=== PATIENT | female | born 1940 | race Caucasian/White ===

== ENCOUNTER 2018-09-12 10:28 | Observation (INO) | payer MEDICARE, OTHER, SELFPAY ==
[2018-09-12] VITALS (11 sets, daily range): BP systolic 133–153; BP diastolic 67–99; PULSE 65–94; RESP 15–18; TEMP 35.9–36.9; O2SAT 94–98; BMI 31.0; BMI 30.1
--- NOTE | 2018-09-12 10:37 | RAD_ITS ---
STUDY: X-RAY CHEST REASON FOR EXAM: Female, 78 years old. Chest pain with dizziness and weakness for 2 weeks. TECHNIQUE: Frontal and lateral views of the chest. COMPARISON: None. FINDINGS: Lungs hyperexpanded. There is no demonstrated pleural abnormality. Cardiomegaly. Normal mediastinum and maria m. Normal visualized pulmonary arteries. Aortic tortuosity with calcification. Thoracolumbar spondylosis. Normal visualized ribs, clavicles, and shoulders. There is no demonstrated abnormality of the visualized soft tissue structures of the upper abdomen. RAD/Chest PA and Lateral IMPRESSION: Cardiomegaly with hyperexpansion and no acute finding. Electronically Signed: Renzo Diehl MD at 11:14 EDT , Service support ,
[2018-09-12 10:45] LABS: Absolute Lymphocyte Count 1.76 X10^3/ul (0.83-4.51); Absolute Neutrophil Count 3.3 X10^3/uL (2.0-7.7); Basophil# 0.04 X10^3/uL; Basophil% 0.7 % (0-1); Eosinophil# 0.14 X10^3/uL; Eosinophils% 2.4 % (0-5); Hematocrit 43.5 % (37-47); Hemoglobin 14.1 g/dl (12.0-15.0); Lymphocyte # 1.76 X10^3/ul (4.0); Lymphocyte % 30.8 % (19-41); Mean Corp Hgb Conc 32.4 g/gl (32-36); Mean Corpuscular Hgb 29.6 pg (27.0-32.0); Mean Corpuscular Volume 91.4 fL (81-99); Mean Platelet Vol. 9.5 fl (6.2-12.0); Monocyte# 0.46 X10^3/uL; Neutrophil # 3.31 X10^3/uL (2.7-7.7); Neutrophil % 57.9 % (47-70); Platelet Count 312 K/mm3 (150-450); RBC Distribution Width CV 13.8 % (11.6-14.6); RBC Distribution Width SD 45.6 fl (35.1-43.9); Red Blood Count 4.76 M/mm3 (4.2-5.4); White Blood Count 5.7 K/mm3 (4.4-11.0)
[2018-09-12 10:48] LABS: POSITIVE COUNT NO; POSITIVE DIFFERENTIAL NO; POSITIVE MORPHOLOGY NO
[2018-09-12 11:04] LABS: Anion Gap 6 (5-15); BUN 14 mg/dL (7-18); BUN/Creat Ratio 21.4 RATIO (10-20); Calcium,Total 9.3 mg/dL (8.5-10.1); Chloride 106 mmol/L (98-107); Creatinine, Serum 0.66 mg/dL (0.55-1.02); EST Glomerular Filtration Rate 93 mL/min (>60); Est Glom Filt Rate - Afr Amer 113 mL/min (>60); Estimated Creatinine Clearance 34.38 ml/min; Glucose 96 mg/dL (74-106); Potassium 4.2 mmol/L (3.5-5.1); Sodium Level 140 mmol/L (136-145)
--- NOTE | 2018-09-12 12:20 | ED.DCSUM_ITS ---
- ER Visit Summary Date of Service: 09/12/18 Chief Complaint: Chest pain History of Present Illness: The patient is a 78 F high cholesterol kidney stones. No cardiac disease. No history of DVT or PE. She states that she does a lot of walking and the last several weeks to months she is had to stop walking hills because she gets very short of breath with walking hills to the point sometimes she has to stop and take a rest. She denies chest pain with exertion. Today she was at home when she had chest pressure in the midsternal of her chest rating her left shoulder and arm. Currently that is resolved. She also states she had some palpitations. Denies any history of DVT or PE. No hemoptysis. No pleuritic pain. No calf pain or swelling. She also describes recent dizziness that she is having that she describes as lightheadedness. It comes on at different times typically only last seconds. She denies any numbness or tingling in her upper or lower extremities. No weakness. No visual change. And no problem with her speech. Currently she is not having the symptoms. Physical Examination: Well-appearing older female vital signs are stable afebrile. No acute distress. Currently symptom-free pain-free. HEENT exam unremarkable. Neck nontender no JVD no lymphadenopathy. Lungs clear to auscultation bilaterally. Heart regular rate and rhythm no murmur. She has had frequent PVCs. Chest wall nontender. Abdomen soft, nontender, nondistended normal bowel sounds no peritoneal signs. Extremities moves all 4. Calves nontender without edema or cords. Equal symmetrical radial pulses. Neurologically awake alert with no focal motor or sensory deficits NIH is 0. Normal motor strength and sensation in both upper and lower extremities. Normal speech. No facial droop. Test Results: CBC normal. Chemistries normal. Troponin normal. Chest x-ray cardiomegaly otherwise no acute process. Read both by myself the radiologist. EKG sinus rhythm rate of 74 no acute signs of ischemia. Emergency Department Course and Treatment: Patient's chest pain is concerning for exertional dyspnea when she walks up hills. She and her are comfortable with her being admitted for further evaluation and work-up. Treatment Plan: I spoke to the hospitalist who is going to admit the patient and set her up for inpatient stress test. Disposition: Admission Impression: Exertional dyspnea and chest pain of uncertain etiology This note was generated with [employer] dictation software. It may contain incorrect words, spelling, and punctuation that were not noted in review of the chart prior to signing ED Disposition - Plan for ED Patient: Referrals: Duy Rosario MD [Primary Care Provider] -
--- NOTE | 2018-09-12 13:12 | ECHOD_ITS ---
Reason For Study: CP Procedure This was a 2D Doppler, Color Flow transthoracic echocardiogram. Exam performed portable in patient room. Left Ventricle Normal LV size. Left ventricular systolic function is normal. The estimated ejection fraction is 55 %. Stage 1 diastolic dysfunction. No regional wall motion abnormalities noted. Right Ventricle Normal RV size. Normal systolic function. Atria The left atrium is mildly enlarged. Normal right atrium. Mitral Valve Normal mitral valve. Mild (1+) eccentric mitral valve insufficiency. Tricuspid Valve Normal tricuspid valve. Mild (1+) tricuspid valve insufficiency. Pulmonary artery systolic pressure is 30 mmHg. Aortic Valve Normal aortic valve. Trisinus/trileaflet aortic valve. Pulmonic Valve Normal pulmonic valve. Great Vessels Normal aortic root. The pulmonary artery is normal size. Normal inferior vena cava. Pericardium/Pleural No pericardial effusion. MMode/2D Measurements & Calculations LVIDd: 4.6 cm IVSd: 0.94 cm LA dimension: 4.0 cm LVIDs: 3.1 cm LVPWd: 0.89 cm RVDd: 3.3 cm FS: 33.2 % LAV(MOD-bp): 56.7 ml LA A4 area: 22.6 cm2 RA A4 area: 12.4 cm2 LAV(MOD-bp) Indexed: 34.0 ml/m2 LAV(MOD-sp2): 46.3 ml LAV(MOD-sp4): 71.2 ml Time Measurements MV dec time: 0.19 sec Doppler Measurements & Calculations MV E max jaret: 78.9 cm/sec Lat Peak E' Jaret: 6.0 cm/sec Med Peak E' Jaret: 5.4 cm/sec MV A max jaret: 103.4 cm/sec E/E' lat: 13.1 E/E' med: 14.6 MV E/A: 0.76 MV V2 max: 109.4 cm/sec MV P1/2t max jaret: 77.1 cm/sec Ao V2 max: 102.2 cm/sec MV max P.8 mmHg MV P1/2t: 104.8 msec Ao max P.2 mmHg MV V2 mean: 57.3 cm/sec MV dec slope: 215.7 cm/sec2 MV mean P.5 mmHg MVA(P1/2t): 2.1 cm2 MV V2 VTI: 26.1 cm AI max jaret: 356.5 cm/sec LV V1 max: 89.7 cm/sec MR max jaret: 561.8 cm/sec AI max P.8 mmHg LV V1 max P.2 mmHg MR max P.2 mmHg MR mean jaret: 424.7 cm/sec AI dec slope: 175.9 cm/sec2 MR mean P.6 mmHg AI P1/2t: 593.5 msec MR VTI: 222.7 cm PA V2 max: 74.2 cm/sec TR max jaret: 250.6 cm/sec TR max P.1 mmHg Interpretation Summary Normal LV size. Left ventricular systolic function is normal. The estimated ejection fraction is 55 %. Stage 1 diastolic dysfunction. The left atrium is mildly enlarged. Mild (1+) eccentric mitral valve insufficiency. Pulmonary artery systolic pressure is 30 mmHg. Ordering Physician: Odalis Bazan Referring Physician: ISAIAH GALLEGO Performed By: Walt Marcelino RCS
--- NOTE | 2018-09-12 13:15 | EKG12_ITS ---
Test Reason : CP Blood Pressure : / mmHG Vent. Rate : 074 BPM Atrial Rate : 074 BPM P-R Int : 140 ms QRS Dur : 092 ms QT Int : 404 ms P-R-T Axes : 028 -21 016 degrees QTc Int : 448 ms Normal sinus rhythm Moderate voltage criteria for LVH, may be normal variant Borderline ECG Confirmed by NAEEM CALDERON, SMA ([id number]), film editor SPIKE FELIX ([id number]) on 09/13/2018 7:38:33 AM Referred By: CUONG Confirmed By:SAM HARTLEY MD
--- NOTE | 2018-09-12 13:19 | PCM.HP.STD ---
Problem List (1) Chest pain Status: Acute Qualifiers: Chest pain type: unspecified Qualified Code(s): R07.9 - Chest pain, unspecified (2) Hyperlipidemia Status: Chronic Qualifiers: Hyperlipidemia type: unspecified Qualified Code(s): E78.5 - Hyperlipidemia, unspecified History of Present Illness Date of Admission: 09/12/18 Chief Complaint: Chest pain - 3 days The patient is a 78 year old F with PMHx of Hyperlipidemia who comes in with complaints of chest pain ongoing for the past 3 days. Patient complains of left-sided dull/heavy chest pain that happens randomly over the course of the last 3 days. Chest pain comes on even at rest lasts for a few seconds and goes away. It is not associated with diaphoresis or nausea or vomiting. She has dyspnea on exertion as well as intermittent dizziness. Denies any cardiac history. She also denies orthopnea or PND or leg swelling. Vitals in the ED show temperature of 96.7F, heart rate 69, blood pressure 153/99, respiratory rate 15, SPO2 is 96% on room air. Admitting blood work showed RBC count of 5.7, hemoglobin 14.1, platelet count of 312. BMP was unremarkable, troponins x1 was negative. EKG showed no acute ST-T changes. Past Medical History Past Medical History (Chronic Problems): Chronic Problems Hyperlipidemia (Chronic) Allergies butorphanol [From Stadol] Allergy (Verified 09/12/18 10:29) Vomiting meperidine [From Demerol] Allergy (Verified 09/12/18 10:29) Vomiting Sulfa (Sulfonamide Antibiotics) Allergy (Verified 09/12/18 10:29) Rash Home Medications: Ambulatory Orders Medication Instructions Recorded Aspirin [Aspirin, Baby] 162 mg PO DAILY@0800 12/29/15 Betaxolol 0.25% [Betoptic] 1 drop TOPICAL DAILY 12/29/15 Esomeprazole Mag Trihydrate 40 mg PO DAILY 12/29/15 [Nexium] Latanoprost 0.005% [Xalatan 1 drop EACH EYE QHS 12/29/15 Opthalmic] Pravastatin [Pravachol] 20 mg PO DAILY 12/29/15 Cholecalciferol (VIT D3) [Vitamin 1,000 unit PO DAILY 09/12/18 D] Surgical History: cataract Psychiatric History: No pertinent psych hx 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 Denies: Orthopnea, Palpitations, Paroxysmal Noc. Dyspnea Respiratory: Denies: Cough, Hemoptysis, Shortness of breath at rest, Shortness of breath upon exertion, Sputum production Gastrointestinal: Denies: Abdominal Pain, Constipation, Hematemesis, Nausea, Vomiting Genitourinary: Denies: Dysuria Musculoskeletal: Denies: Joint Pain, Joint stiffness, Joint swelling, Joint Tenderness Skin: Denies: Rash, Wounds Neurological: Denies: Difficulty swallowing, Focal weakness, Numbness, Tingling Psychiatric: Denies: Anxiety, Depression, Homicidal Ideations, Suicidal Ideations Hematologic/ Lymphatic: Denies: Easy Bruising, Easy Bleeding VTE Information - Inpt Only VTE Present on Admission: No VTE Pharm Prophylaxis ordered?: Yes Patient Problems: Active and Suspected Problems Chest pain (Acute) - Physical Exam General: Alert, Oriented x3, Cooperative, No apparent distress, - - on 2L oxygen, comfortable, HEENT: Atraumatic, PERRLA, EOMI, Normocephalic Oral: Moist Mucosa Neck: Supple Lungs: Clear to auscultation, Normal air movement Cardiovascular: Regular rate, Regular Rhythm, Normal S1, Normal S2, No murmurs Abdomen: Bowel Sounds Present, Soft, Non Tender, Non-Distended, No Hepato-splenomegaly Extremities: No edema, Capillary Refill Less than 3 Seconds Skin: No rashes, No breakdown Musculoskeletal: No Tenderness to Palpation of Joints or Extremities Lymphatic: No Cervical, Supraclavicular, or Inguinal Adenopathy Neurological: Cranial nerves II-XII grossly intact Psych/Mental Status: Normal Affect, Appropriate Vital Signs Temp Pulse Resp BP Pulse Ox 96.7 F L 71 15 136/82 H 98 09/12/18 10:31 09/12/18 12:27 09/12/18 12:27 09/12/18 12:27 09/12/18 12:27 Oxygen Delivery Method Room Air Weight: 72.121 kg Body Mass Index (BMI) 31.0 Laboratory Tests Past 24 Hrs 09/12/18 09/12/18 10:39 10:39 WBC 5.7 RBC 4.76 Hgb 14.1 Hct 43.5 MCV 91.4 MCH 29.6 MCHC 32.4 RDW 13.8 RDW Differential 45.6 H Plt Count 312 MPV 9.5 Immature Gran % (Auto) 0.200 Neut % (Auto) 57.9 Lymph % (Auto) 30.8 Sargent % (Auto) 8.0 Eos % (Auto) 2.4 Baso % (Auto) 0.7 Absolute Neuts (auto) 3.3 Absolute Lymphs (auto) 1.76 Total Counted Not Reportable Sodium 140 Potassium 4.2 Chloride 106 Carbon Dioxide 28.0 Anion Gap 6 BUN 14 Creatinine 0.66 Estim Creat Clear Calc 34.38 Est GFR (MDRD) Af Amer 113 Est GFR (MDRD) Non-Af 93 BUN/Creatinine Ratio 21.4 H Glucose 96 Calcium 9.3 Troponin I < 0.015 Assessment/Plan All Active Problems Chest pain (Acute) 78 year old F with PMHx of Hyperlipidemia who comes in with complaints of chest pain ongoing for the past 3 days. 1. Chest pain, concerning for possible ACS, EKG shows no acute ST-T changes, troponins negative Plan: Admit to PCU, continue to monitor on telemetry, aspirin 81 mg p.o. daily, continue on statins, nitro as needed 2D echo, stress test in a.m.Chest pain, concerning for possible ACS, EKG shows no acute ST-T changes, troponins negative Plan: Admit to PCU, continue to monitor on telemetry, aspirin 81 mg p.o. daily, continue on statins, nitro as needed 2D echo, stress test in a.m. 2. Hyperlipidemia, continue statin, will check fasting lipid profile in a.m. 3. DVT PPx- Heparin SC Code Visit OBSV E&M: 94422 Initial observation care L3
[2018-09-12 16:30] LABS: Magnesium 2.1 mg/dL (1.6-2.6)
[2018-09-12] MEDS: Pantoprazole Sodium 40 MG Tablet PO (18:29)
[2018-09-12] MEDS: Aspirin 81 MG TAB.CHEW 162 MG PO (18:29)
[2018-09-12] MEDS: Latanoprost 0.005% 1 Bottle 1 DRP EACH EYE (22:12)
[2018-09-12] MEDS: Pravastatin 20 MG Tablet PO (22:12)
[2018-09-13 03:00] VITALS: PULSE 71
[2018-09-13 04:00] VITALS: BP 124/64; PULSE 72; RESP 18; TEMP 37; O2SAT 94
--- NOTE | 2018-09-13 05:55 | EKG12_ITS ---
Test Reason : AM EKG Blood Pressure : / mmHG Vent. Rate : 073 BPM Atrial Rate : 073 BPM P-R Int : 134 ms QRS Dur : 086 ms QT Int : 412 ms P-R-T Axes : 011 -12 015 degrees QTc Int : 453 ms Sinus rhythm with frequent Premature ventricular complexes Otherwise normal ECG Confirmed by DUSTIN CALDERON, VIKTORIYA ([id number]), television news video editor SPIKE FELIX ([id number]) on 09/14/2018 8:11:43 AM Referred By: BRANDON Confirmed By:VIKTORIYA CHAN MD
[2018-09-13] MEDS: Aspirin 81 MG TAB.CHEW 162 MG PO (06:03)
[2018-09-13 09:02] VITALS: PULSE 85
[2018-09-13 09:13] VITALS: BP 120/43; PULSE 79; RESP 16; TEMP 37; O2SAT 93
[2018-09-13] MEDS: Pantoprazole Sodium 40 MG Tablet PO (09:20)
--- NOTE | 2018-09-13 09:21 | STRESSREP ---
Stress Test Report Date: 09-13-18 Procedure: Pharmacologic stress nuclear imaging study Indications: Chest pain Consent: Per the patient Procedure: The patient underwent pharmacologic (Regadenoson) evaluation with a peak heart rate of 107 beats per minute (74 %predicted maximal heart rate) and a peak blood pressure of 130/70 mmHg. The baseline ECG demonstrated normal sinus rhythm. The peak pharmacologic ECG demonstrated no obvious ECG changes. There was a rare PVC pretest. There was no complaint of chest discomfort during pharmacologic infusion or recovery. The examination was discontinued secondary to completion of protocol. Impression: 1. Pharmacologic (Regadenoson) evaluation 2. Peak pharmacologic ECG with no obvious ECG changes. 3. There was a rare PVC pretest. 4. Nuclear images pending Myocardial perfusion imaging study: Technique: The patient was injected with 11.6 millicuries of technetium 99m Cardiolite and subsequently rest SPECT Cardiolite nuclear imaging was obtained in the horizontal long, vertical long, and short axis views. The patient underwent pharmacologic (Regadenoson) evaluation with a peak heart rate of 107 beats per minute (74 % percent predicted maximal heart rate) and a peak blood pressure of 130/70 mmHg. The patient was injected with 34.1 millicuries of technetium 99m Cardiolite and subsequently stress SPECT Cardiolite nuclear imaging was obtained in the horizontal long, vertical long, and short axis views. A gated Cardiolite study at peak stress was obtained. Interpretation: Rest and stress SPECT Cardiolite nuclear imaging status post realignment, normalization, and attenuation correction demonstrate relative uniform tracer uptake and myocardial perfusion appearing within normal limits. There is end systolic thickening and brightening. The gated Cardiolite study demonstrates myocardial thickening and inward wall motion. The reported LVEF is 65 %. Impression: 1. Rest and stress SPECT Cardiolite nuclear imaging demonstrate relative uniform tracer uptake and myocardial perfusion appearing within normal limits. 2. The gated Cardiolite study reports an LVEF of 65 %. This note was generated with [employer] software. It may contain incorrect words, spelling, and punctuation that were not noted in checking the note before signing.
--- NOTE | 2018-09-13 10:11 | PCM.DC ---
- Discharge Diagnoses Current Active Problems: Current Active and Chronic Problems Chest pain (Acute) Hyperlipidemia (Chronic) Reason(s) for Visit for Discharge Instructions: Chest pain You will use the following diet at home:: Cardiac Your food should be the consistency of: Regular Your liquids should be the consistency of: Regular/Thin Discharge Activity: Return to Normal Activity Additional Instructions: Continue on all your medications. Follow a heart healthy diet. Follow-up with your primary care doctor within 2 weeks. Allergies/Adverse Reactions: Allergies Sulfa (Sulfonamide Antibiotics) Allergy (Verified 09/12/18 13:55) Rash butorphanol [From Stadol] Adverse Reaction (Verified 09/12/18 13:55) Vomiting meperidine [From Demerol] Adverse Reaction (Verified 09/12/18 13:55) Vomiting Medications to take at Discharge Aspirin [Aspirin, Baby] 162 mg PO DAILY@0800 12/29/15 Betaxolol 0.25% [Betoptic] 1 drop TOPICAL DAILY 12/29/15 Esomeprazole Mag Trihydrate [Nexium] 40 mg PO DAILY 12/29/15 Latanoprost 0.005% [Xalatan Opthalmic] 1 drop EACH EYE QHS 12/29/15 Pravastatin [Pravachol] 20 mg PO DAILY 12/29/15 Cholecalciferol (VIT D3) [Vitamin D3] 1,000 unit PO DAILY 09/12/18 Primary Care Physician: Duy Rosario MD [facility] - Please follow up with your Primary Care Physician in: within 1-2 weeks Test Results: Test results from this visit will be discussed in further detail at your follow-up appointment, if applicable. Please Follow Up With: Drew Hughes MD When: within 2 weeks Proposed Discharge Date: 09/13/18
--- NOTE | 2018-09-13 11:00 | DS.PCM_ITS ---
Discharge Date and Diagnosis Date of Admission: 09/12/18 Date of Discharge: 09/13/18 - Primary Discharge Diagnosis Active and Suspected Problems Chest pain (Acute), ACS ruled out - Secondary Discharge Diagnosis Chronic Problems Hyperlipidemia (Chronic) Hospital Course and Treatment Imaging Results: 09/13/18 05:55 Nuclear Stress Test - Chemical [NM] AM (NON MEDS) Clinical Impression(s) from Imaging Studies Chest X-Ray 09/12/18 10:37 IMPRESSION: Cardiomegaly with hyperexpansion and no acute finding. Electronically Signed: Renzo Diehl MD at 11:14 EDT , Service support , None Procedures: Stress test Summary of Care Provided: 78 year old F with PMHx of Hyperlipidemia who comes in with complaints of chest pain ongoing for the past 3 days. Patient complains of left-sided/heavy chest pain that happens randomly over the last 3 days prior to admission. Chest pain comes on at rest lasting a few seconds and goes away. It is worse when she is going up a hill. It is not associated with dizziness or diaphoresis or vomiting. She had associated dizziness. In the ED, her vitals were stable. Blood work was unremarkable. EKG showed no acute ST-T changes. Patient was admitted to the telemetry floor, her troponins were cycled and were normal. She underwent a nuclear stress test that was negative. Patient remained asymptomatic and was discharged to follow-up with her primary care doctor and cardiology within 2 weeks. Subjective: On the day of discharge, patient was seen and examined. She denied any new complaints. No acute events overnight. Objective: Physical Exam General: Alert, Oriented x3, Cooperative, No apparent distress HEENT: Atraumatic, PERRLA, EOMI, Normocephalic Oral: Moist Mucosa Neck: Supple Lungs: Clear to auscultation, Normal air movement Cardiovascular: Regular rate, Regular Rhythm, Normal S1, Normal S2, No murmurs Abdomen: Bowel Sounds Present, Soft, Non Tender, Non-Distended, No Hepato- splenomegaly Extremities: No edema, Capillary Refill Less than 3 Seconds Skin: No rashes, No breakdown Musculoskeletal: No Tenderness to Palpation of Joints or Extremities Lymphatic: No Cervical, Supraclavicular, or Inguinal Adenopathy Neurological: Cranial nerves II-XII grossly intact Psych/Mental Status: Normal Affect, Appropriate - Physical Exam Vital Signs Temp Pulse Resp BP Pulse Ox 98.6 F 79 16 120/43 L 93 09/13/18 09:13 09/13/18 09:13 09/13/18 09:13 09/13/18 09:13 09/13/18 09:13 Oxygen Flow Rate (L/min) 2 Oxygen Delivery Method Room Air Weight: 71 kg Body Mass Index (BMI) 30.1 Intake and Output for Last 24 Hours 09/11/18 09/12/18 09/13/18 23:59 23:59 23:59 Intake Total 360 / 360 Balance 360 / 360 Laboratory Tests Past 24 Hrs 09/12/18 09/12/18 09/12/18 10:39 14:53 14:53 Sodium 140 Potassium 4.2 Chloride 106 Carbon Dioxide 28.0 Anion Gap 6 BUN 14 Creatinine 0.66 Estim Creat Clear Calc 34.38 Est GFR (MDRD) Af Amer 113 Est GFR (MDRD) Non-Af 93 BUN/Creatinine Ratio 21.4 H Glucose 96 Calcium 9.3 Magnesium 2.1 Troponin I < 0.015 < 0.015 09/12/18 17:45 Sodium Potassium Chloride Carbon Dioxide Anion Gap BUN Creatinine Estim Creat Clear Calc Est GFR (MDRD) Af Amer Est GFR (MDRD) Non-Af BUN/Creatinine Ratio Glucose Calcium Magnesium Troponin I < 0.015 Discharge Diet: No Restrictions Discharge Activity: Return to Normal Activity Home Medications: Medications to take at Discharge Aspirin [Aspirin, Baby] 162 mg PO DAILY@0800 12/29/15 Betaxolol 0.25% [Betoptic] 1 drop TOPICAL DAILY 12/29/15 Esomeprazole Mag Trihydrate [Nexium] 40 mg PO DAILY 12/29/15 Latanoprost 0.005% [Xalatan Opthalmic] 1 drop EACH EYE QHS 12/29/15 Pravastatin [Pravachol] 20 mg PO DAILY 12/29/15 Cholecalciferol (VIT D3) [Vitamin D3] 1,000 unit PO DAILY 09/12/18 Primary Care Physician: Duy Rosario MD [[facility]AFF PHYSICIAN] - Please follow up with your Primary Care Physician in: within 1-2 weeks Please Follow Up With: Drew Hughes MD When: within 2 weeks Disposition: Home Minutes spent on discharge:: 38 Patient Condition:: Stable Medical Necessity - Tobacco Use Smoking Status: Never smoker Tobacco Use: Non-smoker Meaningful Use Info Meaningful Use Diagnoses (Choose all that apply): None applicable Code Visit OBSV E&M: 75725 Observation care discharge
== END 2018-09-13 10:11 | disposition home or self-care (01) ==
LOC: ED 12:24 → PCU 12:48
PROVIDERS: Admitting Provider Internal Medicine; Emergency Provider Emergency Medicine; Visit Provider Internal Medicine
DX: R07.89 Other chest pain (principal); R42 Dizziness and giddiness; R06.09 Other forms of dyspnea; E78.5 Hyperlipidemia, unspecified; Z79.82 Long term (current) use of aspirin; Z79.899 Other long term (current) drug therapy; I08.1 Rheumatic disorders of both mitral and tricuspid valves
CPT/HCPCS: 36415; 71046; 78452; 80048; 83735; 84484; 85025; 93005; 93017; 93306; 99218; 99285; A9500; Q9957; A4216; G0378; J2785

== ENCOUNTER → 2018-11-16 | Outpatient (CLI) | payer MEDICARE, OTHER, SELFPAY ==
[2018-10-31 14:39] VITALS: BMI 31.0
--- NOTE | 2018-11-16 13:40 | PFT ---
INTRODUCTION: The patient is a 78-year-old female that presents for pulmonary function studies secondary to a diagnosis of dyspnea. Respiratory therapy reports good patient effort. Bronchodilators were used during testing. INTERPRETATION: Forced expiration spirometry demonstrates no evidence of a large airways obstructive ventilatory defect. There was no significant response to aerosolized bronchodilators. Spirograms are of good quality and plateau normally. Body plethysmography was performed and reveals lung volumes to be within normal limits. Diffusing capacity by single breath CO is also within normal limits at 74% of predicted. IMPRESSION: Normal spirometry, lung volumes and diffusing capacity. No significant bronchodilator response.
== END | disposition home or self-care (01) ==
LOC: PSN 07:31
PROVIDERS: Referring Provider Internal Medicine Cardiovascular Disease; Visit Provider Internal Medicine Cardiovascular Disease
DX: R06.09 Other forms of dyspnea (principal)
CPT/HCPCS: 94060; 94726; 94729

== ENCOUNTER 2019-12-04 21:00 | Emergency (ER) | payer MEDICARE, SELFPAY ==
[2019-01-17 11:11] VITALS: BMI 30.4
[2019-12-04 21:02] VITALS: BP 152/93; PULSE 74; RESP 18; TEMP 36.4; O2SAT 99; BMI 30.7
--- NOTE | 2019-12-04 21:21 | EKG12_ITS ---
Test Reason : CP Blood Pressure : / mmHG Vent. Rate : 073 BPM Atrial Rate : 073 BPM P-R Int : 138 ms QRS Dur : 088 ms QT Int : 404 ms P-R-T Axes : 002 -18 010 degrees QTc Int : 445 ms Normal sinus rhythm Moderate voltage criteria for LVH, may be normal variant Borderline ECG Confirmed by DUSTIN CALDERON, VIKTORIYA ([id number]), business editor RODRIGO WOLFE ([id number]) on 12/06/2019 11:11:00 AM Referred By: Confirmed By:VIKTORIYA CHAN MD
--- NOTE | 2019-12-04 21:26 | RAD_ITS ---
STUDY: X-RAY CHEST REASON FOR EXAM: Female, 79 years old. Left arm pain radiating to left side of chest since this morning TECHNIQUE: Frontal view COMPARISON: 09/12/2018 FINDINGS: The lungs are clear and expanded. There is no demonstrated pleural abnormality. Borderline size heart. Normal mediastinum and maria m. Normal visualized pulmonary arteries. Calcified aortic arch and descending thoracic aorta. Normal visualized thoracic spine. Normal visualized ribs, clavicles, and shoulders. There is no demonstrated abnormality of the visualized soft tissue structures of the upper abdomen. RAD/Chest 1 View (Portable) IMPRESSION: No acute pulmonary pathology of the chest. Electronically Signed: Nam Villalta DO at 21:45 EDT Tel [phone], Service support ,
[2019-12-04 21:40] VITALS: BP 149/75; PULSE 70; RESP 20; O2SAT 96
[2019-12-04 21:51] LABS: Absolute Neutrophil Count 6.2 X10^3/uL (2.0-7.7); Basophil# 0.03 X10^3/uL; Basophil% 0.3 % (0-1); Eosinophil# 0.16 X10^3/uL; Eosinophils% 1.7 % (0-5); Hematocrit 40.4 % (37-47); Hemoglobin 13.3 g/dL (12.0-15.0); Lymphocyte % 23.4 % (19-41); Mean Corp Hgb Conc 32.9 g/dL (32-36); Mean Corpuscular Hgb 31.5 pg (27.0-32.0); Mean Corpuscular Volume 95.7 fL (81-99); Monocyte# 0.73 X10^3/uL; Monocyte% 7.8 % (0-10); NRBC Flagged by Analyzer 0 % (0-5); Neutrophil # 6.24 X10^3/uL (2.7-7.7); Neutrophil % 66.5 % (47-70); Platelet Count 305 K/mm3 (150-450); RBC Distribution Width CV 13.7 % (11.6-14.6); RBC Distribution Width SD 48.6 fl (35.1-43.9); Red Blood Count 4.22 M/mm3 (4.2-5.4); White Blood Count 9.4 K/mm3 (4.4-11.0)
[2019-12-04 22:07] LABS: Anion Gap 5 (5-15); BUN 19 mg/dL (7-18); BUN/Creat Ratio 23.4 RATIO (10-20); Calcium,Total 9.3 mg/dL (8.5-10.1); Chloride 107 mmol/L (98-107); Creatinine, Serum 0.81 mg/dL (0.55-1.02); EST Glomerular Filtration Rate 73 mL/min (>60); Est Glom Filt Rate - Afr Amer 88 mL/min (>60); Estimated Creatinine Clearance 41.78 ml/min; Glucose 90 mg/dL (74-106); Potassium 3.3 mmol/L (3.5-5.1); Sodium Level 142 mmol/L (136-145)
[2019-12-04 22:15] LABS: Prothrombin Time (Protime)PT. 12.4 SECONDS (11.7-14.9)
--- NOTE | 2019-12-04 23:02 | ED.VIS.GEN ---
History of Present Illness Chief Complaint: Chest Pain Detail of Chief Complaint: Left arm pain Informant: Patient Onset: Today Context: Gradual Onset Timing: Waxes and wanes Current Severity: Mild Maximum Severity: Moderate Narrative: Patient present secondary left arm pain. She states this morning she had some left arm pain and then it seemed to improve. Tonight at dinner left arm pain got significantly worse. She states it wraps up to the level of her axilla but does not go into her chest. She did get stung by a bee this afternoon on her left hand, however her arm pain had started previous to the bee sting. She denies shortness of breath. She denies recent change in activity tolerance. - Past Medical History (1) GERD (gastroesophageal reflux disease) Status: Chronic (2) Mixed hyperlipidemia Status: Chronic Past Medical History - Allergies and Home Meds Allergies/Adverse Reactions: Allergies Sulfa (Sulfonamide Antibiotics) Allergy (Verified 12/04/19 21:01) Rash butorphanol [From Stadol] Adverse Reaction (Verified 12/04/19 21:01) Vomiting meperidine [From Demerol] Adverse Reaction (Verified 12/04/19 21:01) Vomiting Primary Care Physician: Lyla You GROUP CONTROLLER, GROUP CONTROLLER-C [Primary Care Provider] - As soon as possible Prior records reviewed: Yes Surgical History: cataract Lives: Spouse/ Significant Other Smoking Status: Never smoker Review of Systems General: Denies: Chills, Fever Eyes: Denies: Visual changes - bilaterally ENT: Denies: Bilateral ear pain Cardiovascular: Denies: Chest pain Respiratory: Denies: Dyspnea, Cough Gastrointestinal: Denies: Abdominal pain, Vomiting Musculoskeletal: Reports: Extremity Pain Skin: Denies: Rash Neurological: Denies: Headache, Weakness, Parasthesia Hematologic: Denies: Easy bruising, Easy bleeding Allergy: Denies: Uticaria Physical Exam Vital Signs/Narrative: Vital Signs Temp Pulse Resp BP Pulse Ox 12/04/19 21:40 70 20 H 149/75 H 96 12/04/19 21:02 97.6 F L 74 18 152/93 H 99 Inital Vital Signs reviewed: Yes General: Well nourished, Well developed Head: Normocephalic ENT: Moist mucous membranes Neck: Supple Cardiovascular: Regular rate, Regular rhythm Respiratory: No distress, CTA bilaterally Abdomen: Soft, Nontender Extremities: - - No reproducible tenderness over the left arm. Skin: Normal color, - - Small focal swelling of the left hand from recent bee sting. No erythema. Neurological: Alert, Oriented x3, Normal Strength, Normal Sensation Psychological: Normal affect Diagnostic/Tx/Re-eval Impressions Chest X-Ray 12/04/19 21:26 IMPRESSION: No acute pulmonary pathology of the chest. Electronically Signed: Nam Villalta DO at 21:45 EDT Tel [phone], Service support , 12/04/19 21:26 Chest 1 View (Portable) [RAD] Stat Laboratory Results 12/04/19 12/04/19 12/04/19 21:35 21:35 21:35 WBC 9.4 RBC 4.22 Hgb 13.3 Hct 40.4 MCV 95.7 MCH 31.5 MCHC 32.9 RDW Std Deviation 48.6 H RDW Coeff of Peggy 13.7 Plt Count 305 MPV 10.0 Immature Gran % (Auto) 0.300 Neut % (Auto) 66.5 Lymph % (Auto) 23.4 [place] % (Auto) 7.8 Eos % (Auto) 1.7 Baso % (Auto) 0.3 Absolute Neuts (auto) 6.2 Absolute Lymphs (auto) 2.20 Nucleated RBC % 0 PT 12.4 INR 1.0 Sodium 142 Potassium 3.3 L Chloride 107 Carbon Dioxide 30.0 Anion Gap 5 BUN 19 H Creatinine 0.81 Estim Creat Clear Calc 41.78 Est GFR (MDRD) Af Amer 88 Est GFR (MDRD) Non-Af 73 BUN/Creatinine Ratio 23.4 H Glucose 90 Calcium 9.3 Troponin I < 0.015 - EKG Initial EKG Interpretation: Sinus Rhythm - Sinus at 73 with no acute ischemia. - Medical Decision Making Patient had taken aspirin prior to arrival. On repeat evaluation she is resting comfortably. She states her arm feels fine at this time. I did discuss with her that I do have concern that this could be a cardiac equivalent. Patient is declining admission for further evaluation and potential stress test. She was encouraged to please return for any worsening symptoms or concerns. ED Disposition - Plan for ED Patient: Disposition: Home or Assisted Living Diagnosis: Chest pain Instructions: ED Chest Pain Atypical Unkn Cause Referrals: Lyla You GROUP CONTROLLER, GROUP CONTROLLER-C [Primary Care Provider] - As soon as possible
[2019-12-04 23:18] VITALS: BP 116/47; PULSE 70; RESP 20; O2SAT 96
[2019-12-04 23:26] VITALS: BP 116/47; PULSE 80; RESP 18; O2SAT 96
== END 2019-12-04 23:47 | disposition home or self-care (01) ==
PROVIDERS: Emergency Provider Emergency Medicine; PCP Nurse Practitioner Primary Care
DX: R07.9 Chest pain, unspecified (principal); K21.9 Gastro-esophageal reflux disease without esophagitis; E78.2 Mixed hyperlipidemia; Z79.899 Other long term (current) drug therapy
CPT/HCPCS: 71045; 80048; 84484; 85025; 85610; 93005; 99284; A4216

== ENCOUNTER 2020-05-08 13:09 | Outpatient (RCR) | payer MEDICARE, SELFPAY ==
[2019-12-15 09:29] VITALS: BMI 30.1
== END 2020-05-08 23:59 ==
LOC: IMMUN 13:09
PROVIDERS: PCP Nurse Practitioner Primary Care; Visit Provider Family Medicine
DX: Z23 Encounter for immunization (principal)
CPT/HCPCS: 0011A; 0012A; 91301

== ENCOUNTER → 2020-05-27 15:23 | Outpatient (CLI) | payer MEDICARE, SELFPAY ==
[2020-05-27 14:23] VITALS: BMI 31.0
[2020-05-27 17:11] LABS: Anion Gap 5 (5-15); BUN 15 mg/dL (7-18); BUN/Creat Ratio 24.8 RATIO (10-20); Calcium,Total 9.2 mg/dL (8.5-10.1); Chloride 104 mmol/L (98-107); EST Glomerular Filtration Rate 102 mL/min (>60); Est Glom Filt Rate - Afr Amer 123 mL/min (>60); Glucose 90 mg/dL (74-106); Magnesium 2.4 mg/dL (1.6-2.6); Potassium 3.8 mmol/L (3.5-5.1); Sodium Level 140 mmol/L (136-145); T4 Free Direct 0.99 ng/dL (0.76-1.46)
== END ==
PROVIDERS: PCP Nurse Practitioner Primary Care; Referring Provider Nurse Practitioner Family; Visit Provider Nurse Practitioner Family
DX: I49.3 Ventricular premature depolarization (principal); R00.2 Palpitations
CPT/HCPCS: 36415; 80048; 83735; 84439; 84443

== ENCOUNTER → 2020-05-29 11:53 | Outpatient (CLI) | payer MEDICARE, SELFPAY ==
[2020-05-27 14:23] VITALS: BMI 31.0
== END ==
PROVIDERS: PCP Nurse Practitioner Primary Care; Referring Provider Internal Medicine Cardiovascular Disease; Visit Provider Internal Medicine Cardiovascular Disease
DX: I49.3 Ventricular premature depolarization (principal); R00.2 Palpitations
CPT/HCPCS: 93225; 93226

== ENCOUNTER 2020-07-25 08:21 | Observation (INO) | payer MEDICARE, SELFPAY ==
[2020-07-15 08:54] VITALS: BMI 31.2
[2020-07-25] VITALS (10 sets, daily range): BP systolic 139–170; BP diastolic 65–98; PULSE 66–79; RESP 16–24; TEMP 36.1–37.1; O2SAT 95–97; BMI 32.3; BMI 31.1
--- NOTE | 2020-07-25 08:38 | EKG12_ITS ---
Test Reason : CP Blood Pressure : / mmHG Vent. Rate : 074 BPM Atrial Rate : 074 BPM P-R Int : 142 ms QRS Dur : 090 ms QT Int : 404 ms P-R-T Axes : 013 -17 023 degrees QTc Int : 448 ms Normal sinus rhythm Normal ECG Confirmed by NAEEM CALDERON, SAM ([id number]), digital editor RODRIGO WOLFE ([id number]) on 07/29/2020 12:33:17 PM Referred By: HAN Confirmed By:SAM HARTLEY MD
--- NOTE | 2020-07-25 08:50 | RAD_ITS ---
STUDY: X-RAY CHEST REASON FOR EXAM: Female, 80 years old. Chest pain TECHNIQUE: Single AP portable view of the chest. COMPARISON: Comparison is made with prior study dated 12/04/2019. FINDINGS: EKG electrodes are seen. The lungs are clear and expanded. There is no demonstrated pleural abnormality. There is borderline cardiomegaly. Normal mediastinum and maria m. Normal visualized pulmonary arteries. There is atherosclerotic calcification of the aortic arch with tortuosity. There are diffuse degenerative changes of the visualized thoracic spine. Normal visualized ribs, clavicles, and shoulders. Small hiatal hernia. RAD/Chest 1 View (Portable) IMPRESSION: Stable examination. No acute abnormality is seen. Electronically Signed: Chico Romeo MD at 9:06 EDT , Service support ,
[2020-07-25 09:06] LABS: Absolute Lymphocyte Count 1.57 X10^3/uL (0.83-4.51); Absolute Neutrophil Count 2.8 X10^3/uL (2.0-7.7); Basophil# 0.04 X10^3/uL; Basophil% 0.8 % (0-1); Eosinophil# 0.13 X10^3/uL; Eosinophils% 2.6 % (0-5); Hematocrit 40.4 % (37-47); Hemoglobin 13.1 g/dL (12.0-15.0); Lymphocyte # 1.57 X10^3/ul (0.83-4.51); Lymphocyte % 31.8 % (19-41); Mean Corp Hgb Conc 32.4 g/dL (32-36); Mean Corpuscular Hgb 31.2 pg (27.0-32.0); Mean Corpuscular Volume 96.2 fL (81-99); Mean Platelet Vol. 9.7 fl (6.2-12.0); Monocyte# 0.37 X10^3/uL; Monocyte% 7.5 % (0-10); NRBC Flagged by Analyzer 0 % (0-5); Neutrophil # 2.81 X10^3/uL (2.7-7.7); Neutrophil % 56.9 % (47-70); Platelet Count 292 K/mm3 (150-450); RBC Distribution Width CV 13.8 % (11.6-14.6); RBC Distribution Width SD 48.6 fl (35.1-43.9); White Blood Count 4.9 K/mm3 (4.4-11.0)
[2020-07-25 09:22] LABS: Anion Gap 6 (5-15); BUN 20 mg/dL (7-18); BUN/Creat Ratio 31.4 RATIO (10-20); Calcium,Total 9.1 mg/dL (8.5-10.1); Chloride 107 mmol/L (98-107); Creatinine, Serum 0.64 mg/dL (0.55-1.02); EST Glomerular Filtration Rate 96 mL/min (>60); Est Glom Filt Rate - Afr Amer 116 mL/min (>60); Estimated Creatinine Clearance 54.02 ml/min; Glucose 87 mg/dL (74-106); Potassium 3.8 mmol/L (3.5-5.1); Sodium Level 143 mmol/L (136-145)
--- NOTE | 2020-07-25 09:24 | EDS_ITS ---
HPI History of Present Illness Chief Complaint: Chest Pain Informant: patient Narrative Narrative: 80-year-old female presenting with left arm pain. Patient states this started around 730 this morning. She complains of 5 out of 10 pain. She denies injury. Denies pain with movement. She states that yesterday she had a throbbing sensation in her neck. She was recently seen by her animal care assistant for these symptoms and wore a monitor. She took aspirin today when her arm pain started. She denies chest pain. Denies shortness of breath, nausea, vomiting. Denies other complaints. Recent Illness/Hospitalization: No CVD Risk Factors: Positive for Hypercholesterolemia [facility] Medical History (Updated 07/25/20 @ 10:[address] Tea Collier MD) Chest pain GERD (gastroesophageal reflux disease) Mixed hyperlipidemia Osteoarthritis Premature ventricular contraction Home Medications aspirin 162 mg PO DAILY@0800 12/29/15 [History Last Taken 09/11/18] esomeprazole magnesium 40 mg PO DAILY 12/29/15 [History Last Taken 09/11/18] latanoprost 1 drp EACH EYE QHS 12/29/15 [History Last Taken 09/11/18] cholecalciferol (vitamin D3) 25 mcg (1,000 unit) tablet 2,000 unit PO DAILY tab 10/31/18 [History Last Taken Unknown] ascorbate calcium (vitamin C) 500 mg tablet 500 mg PO DAILY 05/27/20 [History Last Taken Unknown] denosumab 60 mg/mL subcutaneous syringe 60 mg SC [id number] 05/27/20 [History Last Taken Unknown] calcium citrate 250 mg calcium-vitamin D3 5 mcg (200 unit) tablet 1 tablet PO DAILY tablet 07/15/20 [History Last Taken Unknown] pravastatin 40 mg tablet 40 mg PO DAILY #90 tab 07/15/20 [Rx Last Taken Unknown] timolol 0.5 % eye drops 1 drp RIGHT EYE DAILY ml 07/15/20 [History Last Taken Unknown] Allergy/AdvReac Type Severity Reaction Status Date / Time Sulfa (Sulfonamide Allergy Rash Verified 07/25/20 08:24 Antibiotics) butorphanol [From Stadol] AdvReac Vomiting Verified 07/25/20 08:24 meperidine [From Demerol] AdvReac Vomiting Verified 07/25/20 08:24 Surgical History Cataract extraction status of right eye Social History household members: spouse Smoking Status: Never smoker alcohol intake: current details: occasional substance use type: does not use caffeine: No ROS ROS ED Constitutional Constitutional ED: Denies fever(s) Eyes Eyes: Denies change in vision ENT ENT ED: Denies rhinorrhea or sore throat Cardiovascular Cardiovascular: Denies chest pain or palpitations Respiratory/Chest Respiratory/Chest: Denies cough or dyspnea Gastrointestinal Gastrointestinal: Denies abdominal pain, diarrhea, nausea or vomiting Genitourinary Genitourinary ED: Denies dysuria Musculoskeletal Musculoskeletal: Reports other Details: Left arm pain Integumentary Denies rash Neurologic Neurologic: Denies headache(s) Psychiatric Psychiatric: Denies suicidal thoughts EXAM Physical Exam Const Vital Signs: 07/25/20 08:22 07/25/20 08:26 07/25/20 08:51 Temperature 97.9 F Temperature Source Temporal Pulse Rate 79 Respiratory Rate 24 H Respiratory Effort Normal Non-Labored Blood Pressure 170/65 H Blood Pressure Mean 100 Pulse Ox 96 Oxygen Delivery Method Room Air Room Air Positive well nourished and well developed General Appearance ED: well developed HEENT Reports normocephalic and head/scalp atraumatic Eyes PERRL and EOMs intact bilaterally Neck supple General: Negative for tenderness Chest Wall inspection of chest normal Resp normal respiratory effort and clear to auscultation bilaterally Cardio regular rate and regular rhythm GI non-tender and non-distended Palpation: soft; Negative for guarding or rebound tenderness present no CVA tenderness Extremity normal to inspection Extremity Narrative: Left arm nontender with active full range of motion. Normal distal pulses General Extremety ED: Negative for tenderness Neuro oriented x3 Sensorium / Orientation: alert Psych mental status grossly normal MDM MDM MDM Narrative Medical decision making narrative: Patient has been having intermittent left arm pain in the emergency department. It is not reproducible. She also complains of throbbing sensation in her throat and neck which is also intermittent. Discussed with hospitalist for observation. Lab Data Attestation: I reviewed the patient's lab results. Labs: Laboratory Results - last 24 hr 07/25/20 07/25/20 07/25/20 08:56 08:56 08:56 WBC 4.9 RBC 4.20 Hgb 13.1 Hct 40.4 MCV 96.2 MCH 31.2 MCHC 32.4 RDW Std Deviation 48.6 H RDW Coeff of Peggy 13.8 Plt Count 292 MPV 9.7 Immature Gran % (Auto) 0.400 Neut % (Auto) 56.9 Lymph % (Auto) 31.8 [place] % (Auto) 7.5 Eos % (Auto) 2.6 Baso % (Auto) 0.8 Absolute Neuts (auto) 2.8 Absolute Lymphs (auto) 1.57 Nucleated RBC % 0 Sodium 143 Potassium 3.8 Chloride 107 Carbon Dioxide 30.0 Anion Gap 6 BUN 20 H Creatinine 0.64 Estim Creat Clear Calc 54.02 Est GFR (MDRD) Af Amer 116 Est GFR (MDRD) Non-Af 96 BUN/Creatinine Ratio 31.4 H Glucose 87 Calcium 9.1 Magnesium 2.3 Troponin I < 0.015 Radiography Diagnostic Testing: Radiology Impression Chest X-Ray 07/25/20 08:50 IMPRESSION: Stable examination. No acute abnormality is seen. Electronically Signed: Chico Romeo MD at 9:06 EDT , Service support , EKG Initial EKG: Attestation: I personally reviewed and interpreted this EKG as follows: Interpretation: Sinus Rhythm and No Acute Injury Pattern Discharge Plan Dx/Rx/DC Orders Clinical Impression: Arm pain, left, Heart palpitations Disposition Disposition: Acute Care [facility]
[2020-07-25 10:49] LABS: Magnesium 2.3 mg/dL (1.6-2.6)
--- NOTE | 2020-07-25 11:41 | EKG12_ITS ---
Test Reason : CP ADMIN Blood Pressure : / mmHG Vent. Rate : 060 BPM Atrial Rate : 060 BPM P-R Int : 146 ms QRS Dur : 090 ms QT Int : 430 ms P-R-T Axes : 027 -15 032 degrees QTc Int : 430 ms Normal sinus rhythm Normal ECG Confirmed by DUSTIN CALDERON, VIKTORIYA ([id number]), commissioning editor RODRIGO WOLFE ([id number]) on 07/31/2020 9:14:45 AM Referred By: SHYANN Confirmed By:VIKTORIYA CHAN MD
--- NOTE | 2020-07-25 11:53 | HP.PCM.HOS_ITS ---
HPI - General General Date of Admission: 07/25/20 HPI Narrative SAIDA BARTON, is a 80 F who presents with history of PVCs, dyslipidemia came to ER with left arm pain mainly on the medial side. She denies chest pain. She is also having frequently palpitation sensation in the throat. She has chronic dyspnea on exertion on walking uphill about 200 feet. Denies dyspnea at rest. No history of a stroke or peripheral arterial disease. Twelve-lead EKG done in the ER showed normal sinus rhythm at 74 bpm. QTc 448 ms. Mild LVH. No change from the previous EKG November 2019. First troponin negative. [facility] Medical History Chest pain GERD (gastroesophageal reflux disease) Mixed hyperlipidemia Osteoarthritis Premature ventricular contraction Home Medications aspirin 162 mg PO DAILY@0800 12/29/15 [History Last Taken 09/11/18] esomeprazole magnesium 40 mg PO DAILY 12/29/15 [History Last Taken 09/11/18] latanoprost 1 drp EACH EYE QHS 12/29/15 [History Last Taken 09/11/18] cholecalciferol (vitamin D3) 25 mcg (1,000 unit) tablet 2,000 unit PO DAILY tab 10/31/18 [History Last Taken Unknown] ascorbate calcium (vitamin C) 500 mg tablet 500 mg PO DAILY 05/27/20 [History Last Taken Unknown] denosumab 60 mg/mL subcutaneous syringe 60 mg SC [id number] 05/27/20 [History Last Taken Unknown] calcium citrate 250 mg calcium-vitamin D3 5 mcg (200 unit) tablet 1 tablet PO DAILY tablet 07/15/20 [History Last Taken Unknown] pravastatin 40 mg tablet 40 mg PO DAILY #90 tab 07/15/20 [Rx Last Taken Unknown] timolol 0.5 % eye drops 1 drp RIGHT EYE DAILY ml 07/15/20 [History Last Taken Unknown] Allergy/AdvReac Type Severity Reaction Status Date / Time Sulfa (Sulfonamide Allergy Rash Verified 07/25/20 08:24 Antibiotics) butorphanol [From Stadol] AdvReac Vomiting Verified 07/25/20 08:24 meperidine [From Demerol] AdvReac Vomiting Verified 07/25/20 08:24 Family History (Updated 07/25/20 @ 11:[address] Jerry Denise MD) Mother Cancer Cervical cancer Surgical History Cataract extraction status of right eye Social History household members: spouse Smoking Status: Never smoker alcohol intake: current details: occasional substance use type: does not use caffeine: No Prior Cardiac Testing/Procedures Prior Cardiac Testing/Procedures: Echocardiogram and Stress Test ROS ROS Narrative Constitutional: Mild fatigue on walking. HEENT: No loss of vision. Reports systems reviewed and no addt'l complaints, except as documented Respiratory/Chest: As mentioned in HPI Gastrointestinal: Denies coffee ground emesis, hematemesis or vomiting Genitourinary: Denies burning urination Musculoskeletal: No joint pain and limited range of motion Neurologic: Denies seizure-like activity Endocrinology: Reports systems reviewed and no addt'l complaints, except as documented Hematologic/Lymphatic: Reports systems reviewed and no addt'l complaints, except as documented Rest 12 ROS are negative except as mentioned in HPI Vital Signs Vital Signs Vital Signs: 07/25/20 08:22 07/25/20 08:26 07/25/20 08:51 Temperature 97.9 F Temperature Source Temporal Pulse Rate 79 Respiratory Rate 24 H Respiratory Effort Normal Non-Labored Blood Pressure 170/65 H Blood Pressure Mean 100 Pulse Ox 96 Oxygen Delivery Method Room Air Room Air 07/25/20 10:34 Temperature 97.8 F Temperature Source Temporal Pulse Rate 66 Respiratory Rate 20 H Respiratory Effort Blood Pressure 139/98 H Blood Pressure Mean 111 Pulse Ox 96 Oxygen Delivery Method Room Air Physical Exam Narrative General: Alert, Oriented x3, Cooperative HEENT: Atraumatic, PERRLA, EOMI, Normocephalic Oral: No Gingival or Mucosal Lesions/ Ulcerations Neck: Supple, No JVD, Negative Carotid Bruits Lungs: Air entry equal in bilateral lung bases. No crepitation/rhonchi Cardiovascular: Regular rate, Regular Rhythm, Normal S1, Normal S2, No murmurs Abdomen: Bowel Sounds Present, Soft, Non Tender, Non-Distended : No renal angle tenderness. No suprapubic tenderness. Extremities: No edema, Capillary Refill Less than 3 Seconds Skin: No rashes, No breakdown Musculoskeletal: No Tenderness to Palpation of Joints or Extremities Neurological: Cranial nerves II-XII grossly intact, Deep Tendon Reflexes 2+/4 and Symmetrical, Neuro grossly intact Psych/Mental Status: Normal Affect, Appropriate. Lab / Micro Data Result Diagrams: 07/25/20 08:56 07/25/20 08:56 Labs: Laboratory Results - last 24 hr 07/25/20 07/25/20 07/25/20 08:56 08:56 08:56 WBC 4.9 RBC 4.20 Hgb 13.1 Hct 40.4 MCV 96.2 MCH 31.2 MCHC 32.4 RDW Std Deviation 48.6 H RDW Coeff of Peggy 13.8 Plt Count 292 MPV 9.7 Immature Gran % (Auto) 0.400 Neut % (Auto) 56.9 Lymph % (Auto) 31.8 [place] % (Auto) 7.5 Eos % (Auto) 2.6 Baso % (Auto) 0.8 Absolute Neuts (auto) 2.8 Absolute Lymphs (auto) 1.57 Nucleated RBC % 0 Sodium 143 Potassium 3.8 Chloride 107 Carbon Dioxide 30.0 Anion Gap 6 BUN 20 H Creatinine 0.64 Estim Creat Clear Calc 54.02 Est GFR (MDRD) Af Amer 116 Est GFR (MDRD) Non-Af 96 BUN/Creatinine Ratio 31.4 H Glucose 87 Calcium 9.1 Magnesium 2.3 Troponin I < 0.015 Radiology Impression Chest X-Ray 07/25/20 08:50 IMPRESSION: Stable examination. No acute abnormality is seen. Electronically Signed: Chico Romeo MD at 9:06 EDT , Service support , Assessment & Plan Assessment/Plan (1) GERD (gastroesophageal reflux disease): (2) Mixed hyperlipidemia: (3) Arm pain, left: (4) Chest pain: QUALIFIERS: Chest pain type: unspecified Qualified Code(s): R07.9 - Chest pain, unspecified PLAN: 1. Atypical chest pain with left arm pain and palpitation: Patient is being admitted in PCU. Serial troponin enzymes. Repeat EKG on floor shows normal sinus rhythm 60 bpm with no significant change. Fasting profile tomorrow a.m. BNP ordered. Patient had a pharmacological nuclear stress test in August 2018 was reported within normal limit. 30-day event monitor in November 2018, PACs/PVCs less than 1%. No symptoms reported. PFT in October 2018 reported normal spirometry, lung volumes and diffusion capacity. No significant bronchodilator response. Echo August 2018 EF 55% with stage I diastolic dysfunction, mild eccentric MR LA enlarged. 2. Dyslipidemia: On statin regimen. 3. GERD: On PPI 4. Arrhythmia: PVCs and PACs: DVT prophylaxis: Lovenox 40 subcu daily Clinical Impression(s) from Imaging Studies Chest X-Ray 07/25/20 08:50 IMPRESSION: Stable examination. No acute abnormality is seen. Electronically Signed: Chico Romeo MD at 9:06 EDT , Service support , Visit Charges OBSV E&M: [id number] Initial observation care L3
[2020-07-25] MEDS: Enoxaparin 40 MG/0.4 ML Syringe SC (12:57)
[2020-07-25] MEDS: 0.9% Normal Saline 1,000 ML 75 ML IV (12:57)
[2020-07-25 13:01] LABS: BNP,B-Type NATRIURETIC PEPTIDE 17.4 pg/mL (0-100)
--- NOTE | 2020-07-25 16:10 | CHAPLAIN ---
Type of Pastoral Visit _x__ Initial Visit ___ Follow-up Visit ___ On-call Visit ___ General Patient Visit ___ Spiritual Assessment ___ Family Conference ___ Bereavement ___ Rapid Response ___ Code Blue ___ Other (describe below) Pastoral Care Referral From _x__ Patient ___ Family ___ Nurse ___ Physician ___ Captain Room Service ___ Shop Director ___ Other (describe below) Sacrament/Intervention _x__ Active listening ___ Anointing ___ Christianity ___ Bereavement ___ Communion ___ Sol exploration ___ ___ Life review _x__ Prayer ___ Reconciliation ___ Sacrament of Sick _x__ Supportive presence ___ Wedding ___ Other (describe below) Pastoral Comments
[2020-07-25] MEDS: Pravastatin 40 MG Tablet PO (21:05)
[2020-07-25] MEDS: Pantoprazole Sodium 40 MG Tablet PO (21:06)
[2020-07-25] MEDS: Latanoprost 0.005% 1 Bottle 1 DRP EACH EYE (21:06)
[2020-07-26 02:33] VITALS: BP 136/79; PULSE 75; RESP 16; TEMP 36.7; O2SAT 93
[2020-07-26] MEDS: 0.9% Saline Lock 10 ML Syringe IV (02:43)
[2020-07-26 04:00] VITALS: PULSE 69
[2020-07-26] MEDS: Aspirin 81 MG TAB.CHEW 162 MG PO (06:44)
[2020-07-26 07:11] VITALS: PULSE 77
[2020-07-26 07:18] VITALS: O2SAT 96
[2020-07-26 07:31] LABS: Cholesterol 148 mg/dL (200); High Density Lipoprotein 53 mg/dL; Thyroid Stim Hormone (TSH) 3.64 uIU/mL (0.358-3.74); Triglycerides 106 mg/dL; Very Low Density Lipoprotein 21 mg/dL (5-40)
[2020-07-26 07:43] VITALS: BP 143/86; PULSE 74; RESP 16; TEMP 36.8; O2SAT 94
[2020-07-26 11:31] VITALS: BP 136/80; PULSE 69; RESP 16; TEMP 36.1; O2SAT 95
[2020-07-26] MEDS: Calcium Carb/Vitamin D 1 TABLET Tablet PO (11:34)
[2020-07-26] MEDS: Cholecalciferol (VIT D3) 25 MCG TABLET (1,000 UNITS) 50 MCG PO (11:34)
[2020-07-26] MEDS: Pantoprazole Sodium 40 MG Tablet PO ×2 (11:34)
[2020-07-26] MEDS: Ascorbic Acid 500 MG Tablet PO (11:35)
--- NOTE | 2020-07-26 11:36 | PCM.DC ---
Discharge Instructions Diet Discharge Diet: Low fat / Low cholesterol and 2000 mg Sodium Diet Activity Discharge Activity: Return to Normal Activity Weight Bearing Status: Weight bearing as tolerated Dressing / Incision Call your doctor if you observe: Fever of 101 or Higher, Coldness, Increased Pain, Numbness or Tingling, Change in Color, Inability to urinate, Inability to have a bowel movement, Using more than one pad per hour, Shortness of breath, Dizziness, Swelling in the ankles, Chest pain, Prolonged hiccupping, Increased palpitations (irregular heartbeat), Calf discomfort and Uncontrolled pain Follow Up Care Test Results: Test results from this visit will be discussed in further detail at your follow-up appointment, if applicable. Discharge Plan Admission Admit Date/Time: 07/25/20 10:14 Attending Provider: Jerry Denise Primary Care Provider: Lyla You NP Instructions Patient Instructions: ED Chest Pain, Noncardiac Discharge Orders/Prescriptions Prescriptions: Continued ascorbate calcium (vitamin C) 500 mg tablet 500 mg PO DAILY RF: 0 Prolia 60 mg/mL syringe 60 mg SC [id number] RF: 0 calcium citrate 250 mg calcium-vitamin D3 5 mcg (200 unit) tablet 250 mg-5 mcg (200 unit) tablet 1 tablet PO DAILY RF: 0 pravastatin 40 mg tablet 40 mg PO DAILY Qty: 90 RF: 3 latanoprost 1 DROP bottle 1 drp EACH EYE QHS RF: 0 esomeprazole magnesium 40 MG capsule 40 mg PO DAILY RF: 0 aspirin 81 MG tablet,chewable 162 mg PO DAILY@0800 RF: 0 cholecalciferol (vitamin D3) 1,000 unit tablet 2,000 unit PO DAILY RF: 0 timolol 0.5 % drops 1 drp RIGHT EYE DAILY RF: 0 Referrals / Follow Up: Lyla You NP, BOAT CAMP OPERATOR-C [Primary Care Provider] - Disposition Disposition (needs filled in before D/C Order can be placed): Home, self care
--- NOTE | 2020-07-26 11:45 | DS.PCM_ITS ---
Providers Date of Admission: 07/25/20 Primary Care Physician: SARITHA Jimenez Reason For Visit: ATYPICAL CHEST PAIN Diagnosis Discharge Diagnosis (1) GERD (gastroesophageal reflux disease): Status: Chronic Code(s): K21.9 - Gastro-esophageal reflux disease without esophagitis (2) Mixed hyperlipidemia: Status: Chronic Code(s): E78.2 - Mixed hyperlipidemia (3) Arm pain, left: Status: Acute Code(s): M79.602 - Pain in left arm (4) Chest pain: Status: Resolved Code(s): R07.9 - Chest pain, unspecified Qualifiers: Chest pain type: unspecified Qualified Code(s): R07.9 - Chest pain, unspecified Medications at Discharge Home Medications aspirin 162 mg PO DAILY@0800 12/29/15 esomeprazole magnesium 40 mg PO DAILY 12/29/15 latanoprost 1 drp EACH EYE QHS 12/29/15 cholecalciferol (vitamin D3) 25 mcg (1,000 unit) tablet 2,000 unit PO DAILY tab 10/31/18 ascorbate calcium (vitamin C) 500 mg tablet 500 mg PO DAILY 05/27/20 denosumab 60 mg/mL subcutaneous syringe 60 mg SC [id number] 05/27/20 calcium citrate 250 mg calcium-vitamin D3 5 mcg (200 unit) tablet 1 tablet PO DAILY tablet 07/15/20 pravastatin 40 mg tablet 40 mg PO DAILY #90 tab 07/15/20 timolol 0.5 % eye drops 1 drp RIGHT EYE DAILY ml 07/15/20 Hospital Course Summary of Care Provided Minutes Spent on Discharge: 30 Hospital Course: This 80-year-old female was admitted with left arm pain and palpitation feeling on throat. She was admitted in PCU. Serial EKG shows normal sinus rhythm with no significant ST-T changes suggestive of ischemia. Serial troponin enzymes negative. Fasting lipid profile within normal limit, LDL 74, HDL 53. TSH normal. BNP 17. Patient further had treadmill nuclear stress test which showed normal perfusion with reversibility. Patient had a pharmacological nuclear stress test in August 2018 was reported within normal limit. 30-day event monitor in November 2018, PACs/PVCs less than 1%. No symptoms reported. PFT in October 2018 reported normal spirometry, lung volumes and diffusion capacity. No significant bronchodilator response. Echo August 2018 EF 55% with stage I diastolic dysfunction, mild eccentric MR LA enlarged. Patient has other comorbidities which includes dyslipidemia, GERD which was stable. Discharge medication reconciliation done. Discharge follow-up instructions completed. Discharge process discussed with the patient and all questions were answered to patient's satisfaction. Discharge home Physical Exam Narrative Seen and examined. No acute chest pain or shortness of breath or palpitation overnight. Heart rate and blood pressure in normal range. General: Alert, Oriented x3, Cooperative HEENT: Atraumatic, PERRLA, EOMI, Normocephalic Oral: No Gingival or Mucosal Lesions/ Ulcerations Neck: Supple, No JVD, Negative Carotid Bruits Lungs: Air entry equal in bilateral lung bases. No crepitation/rhonchi Cardiovascular: Regular rate, Regular Rhythm, Normal S1, Normal S2, No murmurs Abdomen: Bowel Sounds Present, Soft, Non Tender, Non-Distended : No renal angle tenderness. No suprapubic tenderness. Extremities: No edema, Capillary Refill Less than 3 Seconds Skin: No rashes, No breakdown Musculoskeletal: No Tenderness to Palpation of Joints or Extremities Neurological: Cranial nerves II-XII grossly intact, Deep Tendon Reflexes 2+/4 and Symmetrical, Neuro grossly intact Psych/Mental Status: Normal Affect, Appropriate. ABG / Lab / Microbiology Data Result Diagrams: 07/25/20 08:56 07/25/20 08:56 Laboratory: Laboratory Results - last 24 hr 07/25/20 07/25/20 07/25/20 08:56 12:30 15:30 Troponin I < 0.015 < 0.015 B-Natriuretic Peptide 17.4 Triglycerides Cholesterol LDL Cholesterol VLDL Cholesterol HDL Cholesterol TSH 07/26/20 06:22 Troponin I B-Natriuretic Peptide Triglycerides 106 Cholesterol 148 LDL Cholesterol 74 VLDL Cholesterol 21 HDL Cholesterol 53 TSH 3.64 D/C Instructions Discharge Diet: Low fat / Low cholesterol and 2000 mg Sodium Diet Discharge Activity: Return to Normal Activity Weight Bearing Status: Weight bearing as tolerated Call your doctor if you observe: Fever of 101 or Higher, Coldness, Increased Pain, Numbness or Tingling, Change in Color, Inability to urinate, Inability to have a bowel movement, Using more than one pad per hour, Shortness of breath, Dizziness, Swelling in the ankles, Chest pain, Prolonged hiccupping, Increased palpitations (irregular heartbeat), Calf discomfort and Uncontrolled pain Meaningful Use Info Meaningful Use Diagnoses (Choose all that apply): None applicable Discharge Plan Admission Admit Date/Time: 07/25/20 10:14 Attending Provider: Jerry Denise Primary Care Provider: Lyla You NP Instructions Patient Instructions: ED Chest Pain, Noncardiac Discharge Orders/Prescriptions Prescriptions: Continued ascorbate calcium (vitamin C) 500 mg tablet 500 mg PO DAILY RF: 0 Prolia 60 mg/mL syringe 60 mg SC [id number] RF: 0 calcium citrate 250 mg calcium-vitamin D3 5 mcg (200 unit) tablet 250 mg-5 mcg (200 unit) tablet 1 tablet PO DAILY RF: 0 pravastatin 40 mg tablet 40 mg PO DAILY Qty: 90 RF: 3 latanoprost 1 DROP bottle 1 drp EACH EYE QHS RF: 0 esomeprazole magnesium 40 MG capsule 40 mg PO DAILY RF: 0 aspirin 81 MG tablet,chewable 162 mg PO DAILY@0800 RF: 0 cholecalciferol (vitamin D3) 1,000 unit tablet 2,000 unit PO DAILY RF: 0 timolol 0.5 % drops 1 drp RIGHT EYE DAILY RF: 0 Referrals / Follow Up: Lyla You NP, [employer] EXAM[employer]ER-[employer] [Primary Care Provider] - Disposition Disposition (needs filled in before D/C Order can be placed): Home, self care Visit Charges OBSV E&M: 27581 Observation care discharge
--- NOTE | 2020-07-26 12:03 | PHA.DC.MR ---
Pharmacy Service has performed discharge medication reconciliation for this patient. No new medications at time of discharge. Medications reviewed are from previously reported home medications. Home Medications aspirin 162 mg PO DAILY@0800 12/29/15 esomeprazole magnesium 40 mg PO DAILY 12/29/15 latanoprost 1 drp EACH EYE QHS 12/29/15 cholecalciferol (vitamin D3) 25 mcg (1,000 unit) tablet 2,000 unit PO DAILY tab 10/31/18 ascorbate calcium (vitamin C) 500 mg tablet 500 mg PO DAILY 05/27/20 denosumab 60 mg/mL subcutaneous syringe 60 mg SC [id number] 05/27/20 calcium citrate 250 mg calcium-vitamin D3 5 mcg (200 unit) tablet 1 tablet PO DAILY tablet 07/15/20 pravastatin 40 mg tablet 40 mg PO DAILY #90 tab 07/15/20 timolol 0.5 % eye drops 1 drp RIGHT EYE DAILY ml 07/15/20 The patient's discharge medication list was reviewed for discrepancies and discrepancies were resolved.
--- NOTE | 2020-07-26 12:04 | CASEMGMT ---
RN [place] NOTE: Intro role of CM to patient and her who is at bedside. [facility] form explained re: Observation status for treatment of chest pain. Explained hospitalization will be paid per insurance policy for Outpatient billing and condition will continue to be evaluated for Inpt necessity. Also let pt know that [facility] sends paper in the billing packet with their phone number if questions arise. Discussed Pharmacy section of [employer] form and self administered medication guideline. Pt verbalizes understanding and questions answered. Pt denies further questions. Form signed, copy made and placed in chart, and original given to pt. Pt being discharged home today. She denies having any discharge needs or concerns. Mohini RAMIREZ RN CM
--- NOTE | 2020-07-26 14:17 | STRESSREP ---
Stress Test Report Exercise myocardial perfusion stress test. 80-year-old woman with a history of premature ventricular complexes and chest discomfort. Stress protocol: Resting EKG demonstrates normal sinus rhythm with a rate of 68 bpm normal intervals are noted resting blood pressure is 124/82 mmHg. The patient exercised according to the regular Javi protocol for total duration of 6 minutes the maximum heart rate attained was 130 bpm which was 91% of maximum predicted heart rate the maximum workload was 7 metabolic equivalents. At rest there were no ST or T wave changes noted to suggest ischemia and at peak exercise upsloping ST changes were noted with did not meet the criteria for ischemia. No clinical angina was noted the test was terminated due to dyspnea. Myocardial perfusion protocol. 11.0 mCi of technetium 99m sestamibi was injected at rest. The patient exercised according to regular Javi protocol for total duration of 6 minutes and at peak exercise 33.0 mCi of technetium 99m sestamibi was injected stress images were obtained stress and rest images were reconstructed and compared in the short axis vertical long and horizontal long axis. Gated images were also obtained. Perfusion SPECT analysis: Review of the stress images demonstrate normal uptake of tracer noted in all areas of the myocardium. The resting images similarly demonstrate normal uptake of tracer noted in all areas of the myocardium. No areas of reversibility are noted to suggest ischemia and no previous infarct is noted. Gated SPECT analysis: The gated ejection fraction is 71%. Conclusion: Normal exercise myocardial perfusion stress test at a moderate workload. Preserved ejection fraction.
== END 2020-07-26 11:41 | disposition home or self-care (01) ==
LOC: ED 10:28 → PCU 10:33
PROVIDERS: Admitting Provider Internal Medicine; Emergency Provider Emergency Medicine; PCP Nurse Practitioner Primary Care; Visit Provider Internal Medicine
DX: R07.89 Other chest pain (principal); M79.602 Pain in left arm; E78.2 Mixed hyperlipidemia; K21.9 Gastro-esophageal reflux disease without esophagitis; M19.90 Unspecified osteoarthritis, unspecified site; I49.3 Ventricular premature depolarization; Z79.899 Other long term (current) drug therapy; Z79.82 Long term (current) use of aspirin; R06.09 Other forms of dyspnea; R00.2 Palpitations
CPT/HCPCS: 36415; 71045; 78452; 80048; 80061; 83735; 83880; 84443; 84484; 85025; 93005; 93017; 96360; 96361; 96372; 99218; 99251; 99285; A9500; J7030; A4216; G0378; G0463

== ENCOUNTER 2022-06-30 08:36 | Emergency (ER) | payer MEDICARE, SELFPAY ==
[2022-06-30 08:37] VITALS: BP 164/75; PULSE 84; RESP 14; TEMP 36.2; O2SAT 97; BMI 30.7
--- NOTE | 2022-06-30 08:55 | VDLE_ITS ---
Reason For Study: pain Procedure LEFT This is a venous duplex using B-mode, color GSV is normal. flow and spectral Doppler. CFV is compressible, spontaneous, phasic, Exam performed portable in ED. competent, and demonstrates normal The exam was diagnostic. augmentation. A preliminary report was called and/or faxed FV is compressible, spontaneous, phasic, to Dr. Rosales. competent and demonstrates normal augmentation. POP V is compressible, spontaneous, phasic, competent and demonstrates normal augmentation. T/P Trunk is compressible. PTV is compressible. LT PerV is compressible. VL/Venous Duplex US, Unilateral Interpretation Summary Deep veins of the left lower extremity are patent and compressible segmentally. There is no evidence of left lower extremity deep vein thrombosis. The left great saphenous vein rodolfo ears patent and compressible segmentally. Ordering Physician: Pablo oRsales Performed By: Magdy Louis, RVT
--- NOTE | 2022-06-30 08:56 | ED.VIS.LOWEX ---
HPI History of Present Illness HPI Narrative: 82-year-old female with atraumatic left calf pain for approximately a week. No history of prior DVT or PE no significant risk factors. No chest pain or shortness of breath. No hemoptysis. No fall or trauma. No prior history. Chief Complaint: Lower Extremity Injury Informant: patient Occured/Mechanism Mechanism/Context: No assault, No injury and No blunt trauma Onset/Context/Timing Onset: Days Context: Gradual Onset Timing: Continuous Quality of Pain: Dull and Aching Current Severity: Mild Maximum Severity: Mild Narrative Narrative: 82-year-old female past medical history of high cholesterol. States for approximately a week she has had left calf pain. Denies any fall injury or trauma. No history of DVT or PE. She has had no recent travel, surgery or immobilization other than she had a URI in which she states she was less active. Prior similar symptoms: No Recent Illness/Hospitalization: No PFSH PFSH Medical History GERD (gastroesophageal reflux disease) Mixed hyperlipidemia Osteoarthritis Premature ventricular contraction Home Medications aspirin 81 mg chewable tablet 162 mg PO DAILY@0800 heart health 12/29/15 [History Last Taken 09/11/18] esomeprazole magnesium 40 mg capsule,delayed release 40 mg PO DAILY GERD 12/29/15 [History Last Taken 09/11/18] latanoprost 0.005 % eye drops 1 drp EACH EYE QHS eyes 12/29/15 [History Last Taken 09/11/18] ascorbate calcium (vitamin C) 500 mg tablet 500 mg PO DAILY vitamin 05/27/20 [History Last Taken Unknown] pravastatin 40 mg tablet 40 mg PO DAILY #90 tabs 07/15/20 [Rx Last Taken Unknown] timolol 0.5 % eye drops 1 drp RIGHT EYE DAILY eye health 07/15/20 [History Last Taken Unknown] alendronate 35 mg tablet 35 mg PO QWEEK 02/03/21 [History Last Taken Unknown] cholecalciferol (vitamin D3) 125 mcg (5,000 unit) capsule 125 mcg PO DAILY 02/03/21 [History Last Taken Unknown] Allergy/AdvReac Type Severity Reaction Status Date / Time Sulfa (Sulfonamide Allergy Rash Verified 06/30/22 08:39 Antibiotics) butorphanol [From Stadol] AdvReac Vomiting Verified 06/30/22 08:39 meperidine [From Demerol] AdvReac Vomiting Verified 06/30/22 08:39 Family History Mother Cancer Cervical cancer Surgical History Cataract extraction status of right eye Social History household members: spouse Smoking Status: Never smoker alcohol intake: current details: occasional substance use type: does not use caffeine: No ROS ROS ED ROS Narrative Recent URI resolved. Review of Systems ROS Unobtainable: Denies due to encephalopathy Constitutional Constitutional ED: Denies chills or fever(s) Eyes Eyes: Denies blurry vision ENT ENT ED: Denies ear pain Cardiovascular Cardiovascular: Denies chest pain Respiratory/Chest Respiratory/Chest: Denies cough Gastrointestinal Gastrointestinal: Denies abdominal pain Genitourinary Genitourinary ED: Denies dysuria or hematuria Musculoskeletal Musculoskeletal: Denies arthralgias Integumentary Denies abscess Neurologic Neurologic: Denies headache(s) Psychiatric Psychiatric: Denies anxiety or depression Endocrine Endocrinology: Denies polydipsia Hematologic/Lymphatic Hematologic/Lymphatic: Denies easy bleeding Allergic/Immunologic Allergic/Immunologic ED: Denies mouth swelling EXAM Physical Exam Narrative Exam Narrative: Well-appearing 82-year-old female. Vital signs are stable afebrile. Pulse ox 97% on room air no hypoxia. H EENT exam unremarkable. Neck nontender no JVD. No lymphadenopathy. Lungs clear to auscultation bilaterally. Heart regular rhythm rate about 85 no murmur. Chest wall nontender. Abdomen soft nontender. Moving all 4 extremities. Calves are nontender without edema or cords. She has mild mid left posterior calf tenderness. There is no swelling. There is no cord. There is no redness or warmth. There is no cellulitis. She has full range of motion to her left hip, left knee, left ankle and foot. Normal dorsi plantarflexion. Normal DP pulse. Otherwise exam unremarkable. Right lower extremity normal. Const Vital Signs: 06/30/22 08:37 Temperature 97.2 F L Temperature Source Temporal Pulse Rate 84 Respiratory Rate 14 Blood Pressure 164/75 H Blood Pressure Mean 104 Pulse Ox 97 Oxygen Delivery Method Room Air Positive well nourished and well developed; Negative for obese, cachectic, contractures or unkempt General Appearance ED: well developed and NAD; Negative for unkempt, cachectic or contractures Nutritional Appearance: Negative for cachectic or obese HEENT Reports moist mucous membranes normocephalic and atraumatic; Negative for trauma or tenderness Eyes PERRL General Eye ED: Negative for other Neck full ROM and supple Thyroid: Negative for tender Lymph Lymphatic: Negative for other Chest Wall inspection of chest normal and palpation of chest normal Chest: Negative for other Resp normal respiratory effort, no retractions and clear to auscultation bilaterally Effort and Inspection: Negative for pain with movement Auscultation: Negative for rales or rhonchi Percussion: Negative for other Cardio regular rate, regular rhythm, S1 normal heart sound, S2 normal heart sound and no murmurs Rate: Negative for bradycardia or tachycardic Rhythm: Negative for abnormal rhythm Bruits: Negative for other GI non-tender, non-distended and no masses Inspection: Negative for abdominal distention Auscultation: normoactive bowel sounds Palpation: soft; Negative for tender or guarding Bladder / Kidney Exam: No other Back/Spine no CVA tenderness General Back: Negative for CVA tenderness Cervical Spine: Negative for cervical spine tenderness Thoracic Spine / Upper Back: Negative for thoracic spinal tenderness Extremity normal to inspection and full ROM Extremity Narrative: Mild tenderness left posterior calf. Otherwise normal. No swelling. No redness. No warmth. No cord. Left foot neurovascular intact. General Extremety ED: Negative for cyanosis or edema General Extremity: Negative for cyanosis or edema Neuro oriented x3, CN's II-XII intact bilaterally and moves all extremities Sensorium / Orientation: alert, oriented to person, oriented to place and oriented to time; Negative for orientation impaired or confused Motor Exam: strength 5/5 throughout Psych mental status grossly normal Appearance: Negative for unkempt Speech: No other Mood & Affect: Negative for anxious Skin no wounds Lesions: no lesions Rashes: no rashes Trauma: Negative for abrasion MDM MDM MDM Narrative Medical decision making narrative: 82-year-old female with atraumatic left calf pain. There is no bony tenderness. She has no history of trauma. There is no reason for x-rays. I will just attain a noninvasive study of her left lower extremity to rule out DVT. My clinical suspicion is low. She is never had a DVT or PE or any significant risk factors. Repeat exam patient is doing well at 9:27 AM. Her venous study of her leg was read as negative by the tap and die maker technician. I informed the patient. Reexamined her leg and again is unremarkable other than some mild soft tissue tenderness. Again no signs of infection. Normal range of motion. Exam unchanged. Patient be treated with Tylenol and/or Motrin at home. Continue her normal activity and this should resolve. Discharge Plan Triage Chief Complaint: Lower Extremity Injury ED Provider: Pablo Rosales Dx/Rx/DC Orders Clinical Impression: Strain of left calf muscle Instructions: ED Muscle Strain, Extremity Prescriptions: No Action alendronate 35 mg tablet 35 mg PO QWEEK cholecalciferol (vitamin D3) 125 mcg (5,000 unit) capsule 125 mcg PO DAILY ascorbate calcium (vitamin C) 500 mg tablet 500 mg PO DAILY pravastatin 40 mg tablet 40 mg PO DAILY Qty: 90 3RF latanoprost 1 DROP bottle 1 drp EACH EYE QHS esomeprazole magnesium 40 MG capsule 40 mg PO DAILY aspirin 81 MG tablet,chewable 162 mg PO DAILY@0800 timolol 0.5 % drops 1 drp RIGHT EYE DAILY Primary Care Provider: Lyla You NP Referrals: Lyla You NP, [employer] CONDITIONING INSTALLER-C [Primary Care Provider] - 1 Week if not improving Activity Restrictions/Additional Instructions: Your ultrasound did not show any type of blood clot. There is no signs of infection. I suspect you either had a cramp or you strained a muscle in your calf. Continue your normal activity and it should loosen up. If not improving follow-up with your primary care provider. Tylenol and/or Motrin for pain. Disposition Disposition: Home, Self Care
== END 2022-06-30 09:38 | disposition home or self-care (01) ==
PROVIDERS: Emergency Provider Emergency Medicine; PCP Nurse Practitioner Primary Care; Visit Provider Emergency Medicine
DX: S86.112A Strain of other muscle(s) and tendon(s) of posterior muscle group at lower leg level, left leg, initial encounter (principal); E78.2 Mixed hyperlipidemia; X58.XXXA Exposure to other specified factors, initial encounter
CPT/HCPCS: 93971; 99282

== ENCOUNTER 2022-12-31 03:00 | Emergency (ER) | payer MEDICARE, SELFPAY ==
[2022-12-31 03:01] VITALS: BP 148/75; PULSE 69; RESP 15; TEMP 36.7; O2SAT 95; BMI 31.1
--- NOTE | 2022-12-31 03:16 | EDS_ITS ---
HPI History of Present Illness Chief Complaint: Flank Pain Informant: patient Onset/Context/Timing Onset: Month(s) (1) Context: Gradual Onset Timing: Waxes and wanes Quality: ache Location: R flank Current Severity: 6/10 Maximum Severity: 6/10 Worsened by: nothing Relieved by: nothing Associated Symptoms Associated Symptoms: nausea, dysuria Narrative Narrative: Patient states she has been having intermittent pain in the right flank and back for 1-2 months but more prominent in the past month, saw her PCP and had an outpatient CT scan at [facility] about a week ago that she states showed a kidney stone on the right, she does not know the size but states she was told it was small. She was prescribed Flomax which she has been taking and no other medications. She states in the past week the pain has been more constant and getting worse. She developed some nausea. She has had some dysuria on occasion without hematuria, in the form of discomfort in her vaginal area when she urinates. No fevers or chills. The pain was in the back and now feels like it is in the flank. She states she was up most of the night because of the pain so she presents around 3 AM for this. She has had a few kidney stones in the past but has not required surgical intervention for any of them. [facility] Medical History GERD (gastroesophageal reflux disease) Mixed hyperlipidemia Osteoarthritis Premature ventricular contraction Home Medications aspirin 81 mg chewable tablet 162 mg PO DAILY@0800 heart health 12/29/15 [History Last Taken 09/11/18] esomeprazole magnesium 40 mg capsule,delayed release 40 mg PO DAILY GERD 12/29/15 [History Last Taken 09/11/18] latanoprost 0.005 % eye drops 1 drp EACH EYE QHS eyes 12/29/15 [History Last Taken 09/11/18] ascorbate calcium (vitamin C) 500 mg tablet 500 mg PO DAILY vitamin 05/27/20 [History Last Taken Unknown] pravastatin 40 mg tablet 40 mg PO DAILY #90 tabs 07/15/20 [Rx Last Taken Unknown] timolol 0.5 % eye drops 1 drp RIGHT EYE DAILY eye health 07/15/20 [History Last Taken Unknown] cholecalciferol (vitamin D3) 125 mcg (5,000 unit) capsule 125 mcg PO DAILY 11/15/21 [History Last Taken Unknown] ondansetron 4 mg disintegrating tablet 8 mg (2 x 4 mg) PO Q8H PRN PRN Nausea #20 tabs 12/31/22 [Rx Last Taken Unknown] oxycodone-acetaminophen 5 mg-325 mg tablet (Percocet) 1 tab PO Q8H PRN pain 4 days #12 tabs 12/31/22 [Rx Last Taken Unknown] Allergy/AdvReac Type Severity Reaction Status Date / Time Sulfa (Sulfonamide Allergy Rash Verified 12/31/22 03:04 Antibiotics) butorphanol [From Stadol] AdvReac Vomiting Verified 12/31/22 03:04 meperidine [From Demerol] AdvReac Vomiting Verified 12/31/22 03:04 Family History Mother Cancer Cervical cancer Surgical History Cataract extraction status of right eye Social History household members: spouse Smoking Status: Never smoker alcohol intake: current details: occasional substance use type: does not use caffeine: No ROS ROS ED Constitutional Constitutional ED: Denies chills or fever(s) Eyes Eyes: Denies change in vision or diplopia ENT ENT ED: Denies rhinorrhea or sore throat Cardiovascular Cardiovascular: Denies chest pain or palpitations Respiratory/Chest Respiratory/Chest: Denies cough or dyspnea Gastrointestinal Gastrointestinal: Reports nausea; Denies diarrhea or vomiting Genitourinary Genitourinary ED: Reports dysuria and flank pain; Denies hematuria Musculoskeletal Musculoskeletal: Denies back pain or neck pain Integumentary Denies abscess or rash Neurologic Neurologic: Denies headache(s), paresthesias or weakness Psychiatric Psychiatric: Denies anxiety or suicidal thoughts EXAM Physical Exam Const Vital Signs: 12/31/22 03:01 Temperature 98.0 F Temperature Source Temporal Pulse Rate 69 Respiratory Rate 15 Blood Pressure 148/75 H Blood Pressure Mean 99 Pulse Ox 95 Oxygen Delivery Method Room Air Positive well nourished and well developed General Appearance ED: well developed and NAD HEENT Reports moist mucous membranes normocephalic and atraumatic Eyes PERRL and EOMs intact bilaterally Neck full ROM and supple Resp normal respiratory effort and clear to auscultation bilaterally Cardio regular rate, regular rhythm and no murmurs GI non-tender and non-distended Auscultation: normoactive bowel sounds Palpation: soft Back/Spine no CVA tenderness General Back: other FROM Extremity normal to inspection General Extremety ED: Negative for edema, pulses abnormal or tenderness General Extremity: Negative for edema or pulses abnormal Neuro oriented x3, CN's II-XII intact bilaterally and no sensory deficits noted Sensorium / Orientation: awake and alert Motor Exam: strength 5/5 throughout Skin no rashes or lesions noted and no wounds MDM MDM MDM Narrative Medical decision making narrative: Patient was given morphine and Zofran and felt much better afterwards, pain- free. Vital signs remained stable. Labs obtained, I reviewed them. The urinalysis has mostly blood, few white cells but I think probably mostly related to the blood, and 100 LE. I sent this for culture given this, but I do not think we need to put her on empiric antibiotics especially given her white blood count of 5.6. I discussed that with her, she is comfortable with that overall plan of being referred to urology as an outpatient. We submitted for her outpatient CT report from outside hospital, however the patient did not want to continue waiting forward, we have been waiting for 2 hours, and she would prefer to go home with a prescription for analgesics and Zofran which I am more than happy to do. Since she was told it was small, I suspect expectant management is indicated at this time, and she has had no prescription medications to take for her symptoms until now. I think this is reasonable. We discussed reasons to return. I considered a repeat CT scan of her abdomen/pelvis, but given the fact that she is doing so well clinically and hemodynamically, with her labs, and the fact that she was told it was a small stone, I do not think it needs to be repeated and she is in agreement. History & Record Review Discussion w/independent historian: Patient and Significant other Lab Data Attestation: I reviewed the patient's lab results. Labs: Laboratory Results - last 24 hr 12/31/22 12/31/22 03:20 03:27 WBC 5.6 RBC 4.02 L Hgb 10.6 L Hct 34.3 L MCV 85.3 MCH 26.4 L MCHC 30.9 L RDW Std Deviation 61.6 H RDW Coeff of Peggy 20.2 H Plt Count 288 MPV 9.6 Immature Gran % (Auto) 0.200 Neut % (Auto) 53.6 Lymph % (Auto) 31.7 Holmes % (Auto) 8.6 Eos % (Auto) 5.0 Baso % (Auto) 0.9 Absolute Neuts (auto) 3.0 Absolute Lymphs (auto) 1.78 Nucleated RBC % 0 Differential Comment SCANNED Hypochromasia RARE Anisocytosis 1+ Sodium 141 Potassium 3.7 Chloride 109 H Carbon Dioxide 29.0 Anion Gap 3 L BUN 17 Creatinine 0.68 Estim Creat Clear Calc 32.23 Est GFR (MDRD) Af Amer 107 Est GFR (MDRD) Non-Af 88 BUN/Creatinine Ratio 25.0 H Glucose 109 H Calcium 8.5 Urine Color Red Urine Clarity Sl. Cloudy Urine pH 6.5 Ur Specific Calvert 1.010 Urine Protein 100 H Urine Glucose (UA) Normal Urine Ketones Negative Urine Occult Blood 250 H Urine Nitrite Negative Urine Bilirubin Negative Urine Urobilinogen Normal Ur Leukocyte Esterase 100 H Urine RBC > 100 SEEN Urine WBC 10-25 SEEN Ur Squamous Epith Cells 0 SEEN Ur Renal Epithelial Cell 0-5 SEEN Urine Bacteria 1+ Urine Mucus 0 SEEN Discharge Plan Triage Chief Complaint: Flank Pain ED Provider: Johnson Palencia Dx/Rx/DC Orders Clinical Impression: Ureteral colic, Urolithiasis Instructions: ED Kidney Stone w/ Colic Prescriptions: New oxycodone-acetaminophen [Percocet] 5-325 mg tablet 1 tab PO Q8H PRN (Reason: pain) 4 Days Qty: 12 0RF ondansetron [ondansetron] 4 mg tablet,disintegrating 8 mg PO Q8H PRN PRN (Reason: Nausea) Qty: 20 0RF No Action cholecalciferol (vitamin D3) 125 mcg (5,000 unit) capsule 125 mcg PO DAILY ascorbate calcium (vitamin C) 500 mg tablet 500 mg PO DAILY pravastatin 40 mg tablet 40 mg PO DAILY Qty: 90 3RF latanoprost 1 DROP bottle 1 drp EACH EYE QHS esomeprazole magnesium 40 MG capsule 40 mg PO DAILY aspirin 81 MG tablet,chewable 162 mg PO DAILY@0800 timolol 0.5 % drops 1 drp RIGHT EYE DAILY Primary Care Provider: Lyla You NP Referrals: Tracie Santana MD [Med Staff - Active Staff] - As soon as possible (call for appt) Lyla You NP, [employer] [Primary Care Provider] - Disposition Disposition: Home, Self Care
[2022-12-31 03:25] LABS: Absolute Lymphocyte Count 1.78 X10^3/uL (0.83-4.51); Basophil# 0.05 X10^3/uL; Basophil% 0.9 % (0-1); Eosinophil# 0.28 X10^3/uL; Hematocrit 34.3 % (37-47); Hemoglobin 10.6 g/dL (12.0-15.0); Lymphocyte # 1.78 X10^3/ul (0.83-4.51); Lymphocyte % 31.7 % (19-41); Mean Corp Hgb Conc 30.9 g/dL (32-36); Mean Corpuscular Hgb 26.4 pg (27.0-32.0); Mean Corpuscular Volume 85.3 fL (81-99); Mean Platelet Vol. 9.6 fl (6.2-12.0); Monocyte# 0.48 X10^3/uL; Monocyte% 8.6 % (0-10); NRBC Flagged by Analyzer 0 % (0-5); Neutrophil # 3.01 X10^3/uL (2.7-7.7); Neutrophil % 53.6 % (47-70); POSITIVE MORPHOLOGY YES; Platelet Count 288 K/mm3 (150-450); RBC Distribution Width CV 20.2 % (11.6-14.6); RBC Distribution Width SD 61.6 fl (35.1-43.9); Red Blood Count 4.02 M/mm3 (4.2-5.4); White Blood Count 5.6 K/mm3 (4.4-11.0)
[2022-12-31 03:34] LABS: Mucous, Urine 0 SEEN /hpf (<or=2+); Squamous Epithelial Cells - UA 0 SEEN /hpf (5-10)
[2022-12-31 03:35] LABS: Color, Urine Red (Yellow); Glucose, Dipstick Normal (Normal); Ketone-Dipstick Negative (Negative); Leukocyte Esterase-Dipstick 100 /ul (Negative); Nitrite-Dipstick Negative (Negative); Occult Blood-Urine 250 /ul (Negative); Protein-Dipstick 100 mg/dl (Negative); Urine Bilirubin Dipstick Negative (Negative); Urine Clarity Sl. Cloudy (Clear); Urine Urobilinogen Normal (Normal); Urine pH 6.5 (5.0 - 8.0)
[2022-12-31] MEDS: Morphine 2 MG/ML Syringe IV (03:36)
[2022-12-31] MEDS: Ondansetron 4 MG/2 ML Vial IV (03:36)
[2022-12-31 03:44] LABS: Bacteria 1+ /hpf (None Seen); Red Blood Cells-Urine > 100 SEEN /hpf (0-5); Renal Epithelial Cells 0-5 SEEN /hpf (0-5); White Blood Cells 10-25 SEEN /hpf (0-5)
[2022-12-31 03:55] LABS: Anion Gap 3 (5-15); BUN 17 mg/dL (7-18); Calcium,Total 8.5 mg/dL (8.5-10.1); Chloride 109 mmol/L (98-107); Creatinine, Serum 0.68 mg/dL (0.55-1.02); EST Glomerular Filtration Rate 88 mL/min (>60); Est Glom Filt Rate - Afr Amer 107 mL/min (>60); Estimated Creatinine Clearance 32.23 ml/min; Glucose 109 mg/dL (74-106); Potassium 3.7 mmol/L (3.5-5.1); Sodium Level 141 mmol/L (136-145)
[2022-12-31 04:30] LABS: Differential Indicated SCAN CRITERIA MET
[2022-12-31 04:31] LABS: Differential Comment SCANNED
[2022-12-31 04:32] LABS: Anisocytosis 1+; Hypochromasia RARE
[2022-12-31 05:03] VITALS: BP 137/63; PULSE 72; RESP 15; O2SAT 92
[2022-12-31 05:04] VITALS: BP 137/63; PULSE 70; RESP 15; O2SAT 91
== END 2022-12-31 05:36 | disposition home or self-care (01) ==
PROVIDERS: Emergency Provider Emergency Medicine; PCP Nurse Practitioner Primary Care; Visit Provider Emergency Medicine
DX: N20.9 Urinary calculus, unspecified (principal); E78.2 Mixed hyperlipidemia; R30.0 Dysuria
CPT/HCPCS: 80048; 81001; 85025; 87086; 87088; 96374; 96375; 99283; A4216; J2405

== ENCOUNTER → 2023-01-26 | Outpatient (CLI) | payer MEDICARE, SELFPAY ==
--- NOTE | 2023-01-26 14:57 | RAD_ITS ---
STUDY: X-RAY - ABDOMEN/PELVIS REASON FOR EXAM: Female, 82 years old. Kidney stones. TECHNIQUE: Single AP view of the abdomen / pelvis. COMPARISON: None. FINDINGS: Normal visualized lung bases. Normal bowel gas pattern. Moderate amount of feces and gas overlying the renal shadows. Vague 6 mm in diameter calcification projected over the lower pole of the left kidney. Multiple faint calcifications projected over the upper pole of the left kidney. Phleboliths. Normal visualized osseous structures. RAD/Abdomen Single View IMPRESSION: Multiple calcifications projected over the left kidney. Electronically Signed: Renzo Diehl MD at 16:01 EST ,
== END | disposition home or self-care (01) ==
PROVIDERS: PCP Nurse Practitioner Primary Care; Referring Provider Urology; Visit Provider Urology
DX: N20.0 Calculus of kidney (principal)
CPT/HCPCS: 74018

== ENCOUNTER → 2023-03-30 | Outpatient (CLI) | payer MEDICARE, SELFPAY ==
--- NOTE | 2023-03-30 07:13 | CT_ITS ---
STUDY: CT ABDOMEN AND PELVIS WITHOUT CONTRAST REASON FOR EXAM: Female, 83 years old. Right FLANK PAIN AND STONES RADIATION DOSAGE (If Supplied By Facility): CTDIvol = ( 7.65 ) mGy, DLP = ( 343.91 ) mGycm TECHNIQUE: Transaxial images were obtained from the dome of the diaphragm to the symphysis pubis without oral contrast, and without intravenous contrast. Sagittal and coronal images were reconstructed. Individualized dose optimization techniques were used for this CT. COMPARISON: None. FINDINGS: Minimal increased linear markings at the lung bases suggestive of mild basilar scarring. Coronary artery calcification. There is a 7.1 mm well-defined hypodensity in the posterior aspect of the dome of the right lobe of the liver suggestive of a small cyst. A similar appearing 6 mm hypodensity is seen in the lateral aspect of the left lobe of the liver as well as in the inferior aspect of the right lobe of the liver.. Questionable tiny gallstones. Normal spleen. Normal pancreas. Normal bilateral adrenal glands. 2 mm nonobstructive calculus in the right renal pelvis. Questionable 2.5 mm calculus in the distal portion of the right ureter. There is a 5.3 mm nonobstructive calculus in the lower pole calyx of the left kidney. There is a moderate-sized hiatal hernia. Normal small intestine. There are scattered colonic diverticula consistent with diverticulosis. The appendix is visualized and appears normal. There is diffuse atherosclerotic calcification of the abdominal aorta, without a demonstrated aneurysm. Normal inferior vena cava. Normal retroperitoneum. Normal urinary bladder. Calcified phleboliths. Normal abdominal wall. There are degenerative changes of the visualized lumbar spine. CT/Abdomen/Pelvis without Cont IMPRESSION: Findings suggestive of a hepatic cyst. Nonobstructive bilateral intrarenal calculi more prominent on the left side. Questionable 2.5 mm calculus in the distal portion of the right ureter. Sigmoid diverticulosis. Hiatal hernia. Electronically Signed: Chico Romeo MD at 12:43 EST ,
--- OUTSIDE RECORDS SUMMARY | 2023-03-30 07:17 | XMS RPT_ITS | CCD ---
Author Name Unknown Address [address] [place] [address] Organization [facility] Care Team Providers Care Buckle Gluer Name Role Phone [employer], ELENA S Primary Care Physicia n [employer], ELENA S Attending Unava ilable [employer], ELENA S Primary Care Unava ilable [employer], ELENA S Attending Unava ilable [employer], ELENA S Primary Care Unava ilable [employer], ELENA S Primary Care Unava ilable [employer], ELENA S Attending Unava ilable [employer], ELENA S Attending Unava ilable [employer], ELENA S Primary Care Unava ilable [employer], ELENA S Attending Unava ilable [employer], ELENA S Referring Unava ilable [employer], ELENA S Primary Care Unava ilable [employer], ELENA S Attending Unava ilable [employer], ELENA S Primary Care Unava ilable [employer], ELENA S Attending Unava ilable [employer], ELENA S Primary Care Unava ilable [employer], ELENA S Primary Care Unava ilable [employer], ELENA S Attending Unava ilable [employer], ELENA S Primary Care Unava ilable LASHONDA BROWN, DR COLON Attending Unavailable [employer], ELENA S Attending Unava ilable [employer], ELENA S Primary Care Unava ilable [employer], ELENA S Attending Unava ELENA Burns Primary Care Reeva Isaiah Davenport DO Primary Care Provider ISAIAH GALLEGO Primary Care Unavailable KENDRICK FRAZIER Referring Unavailable ISAIAH GALLEGO Primary Care Unavailable Allergies Allergy Classification Reported Allergen(s) Allergy Type Date of Onset Reaction(s) Facility (12 sources) Butorphanol; Translations: [butorphanol] Drug Allergy Vomiting (disorder) [facility] (12 sources) Meperidine; Translations: [meperidine] Drug Allergy Vomiting (disorder) [facility] (12 sources) Sulfonamides (Antibiotic); Translations: [sulfa drugs] Drug allergy Weal (disorder) [facility] (2 sources) Butorphanol; Translations: [BUTORPHANOL TARTRATE] Drug Allergy 7 GI Upset, Vomiting [facility] Work Phone: (2 sources) Meperidine; Translations: [MEPERIDINE (PF)] Drug Allergy 7 GI Upset, Vomiting [facility] Work Phone: (2 sources) Sulfonamides (Antibiotic); Translations: [SULFA (SULFONAMIDE ANTIBIOTICS)] Propensity to adverse reactions 6 Hives [facility] Work Phone: Medications Current Medications Medication Drug Class(es) Dates Sig (Normalized) Sig (Original) alendronic acid 35 mg oral tablet (8 sources) Bisphosphonate Start: 05-18-2022 alendronate 35 mg oral tablet Dose : 35 mg = 1 tab(s), Oral, qWeek, # 13 tab(s), 3 Refill(s), Pharmacy: [facility] 150, cm, 02/16/22 14:11:00 EST, Height, kg, 02/16/22 14:11:00 EST, Dosing Weight Start Date: 05/18/22 Status: Ordered Completed/Discontinued Medications Medication Drug Class(es) Dates Sig (Normalized) Sig (Original) ascorbate calcium/multivit-min (VIT C,ASCORB.CALCIUM,,MV-MIN S, ORAL) (1 source) ascorbate calcium/multivit-min (VIT C,ASCORB.CALCIUM,,MV-TX NS, ORAL) Take by mouth. 0 Active Problems Active Problems Problem Classification Problem Date Documented Da te Episodic/Chronic Acute bronchitis (2 sources) Acute bronchitis 06-20-2022 Episodic Allergic reactions (1 source) Contact dermatitis due to poison remedios 08-11-2022 Episodic Conditions associated with dizziness or vertigo (12 sources) Lightheadedness 04-18-2020 Episodic Deficiency and other anemia (7 sources) Iron deficiency anemia; Translations: [Iron deficiency anemia, unspecified] Episodic Disorders of lipid metabolism (16 sources) Hyperlipidemia; Translations: [Hyperlipidemia, unspecified] Onset: 9 10-20-2018 Chronic Disorders of teeth and jaw (6 sources) Jaw pain 08-11-2022 Episodic Diverticulosis and diverticulitis (12 sources) Diverticular disease 03-07-2019 Chronic Esophageal disorders (1 source) Gastroesophageal reflux disease; Translations: [Gastro-esophageal reflux disease without esophagitis] Onset: 6 11-20-2005 Chronic Genitourinary symptoms and ill-defined conditions (9 sources) Dysuria; Translations: [Dysuria] Onset: Episodic Nutritional deficiencies (1 source) Vitamin D deficiency; Translations: [Vitamin D deficiency, unspecified] Onset: 9 10-30-2008 Chronic Osteoarthritis (12 sources) Osteoarthritis 10-20-2018 Chronic Osteoporosis (13 sources) Osteoporosis; Translations: [Primary osteoporosis] 10-20-2018 Chronic Other connective tissue disease (11 sources) Pain in right arm 02-10-2022 Episodic Other gastrointestinal disorders (12 sources) Irritable bowel syndrome 03-07-2019 Chronic Other lower respiratory disease (1 source) Cough; Translations: [Subacute cough] 02-24-2023 Episodic Other non-traumatic joint disorders (1 source) Pain of right shoulder joint; Translations: [Pain in right shoulder] Episodic Other non-traumatic joint disorders (8 sources) Shoulder pain 07-09-2022 Episodic Other upper respiratory infections (2 sources) Sinusitis 06-20-2022 Chronic Residual codes; unclassified (12 sources) Memory impairment 09-30-2020 Episodic Unclassified (13 sources) Patient encounter status 01-24-2020 Unclassified (1 source) Subacute cough; Translations: [Subacute cough] Onset: Past or Other Problems Problem Classification Problem Date Documented Da te Episodic/Chronic Calculus of urinary tract (18 sources) Kidney stone; Translations: [History of calculus of kidney] Onset: 11-20-2005 02-16-2022 Episodic Other screening for suspected conditions (not mental disorders or infectious disease) (1 source) Patient encounter status; Translations: [Encounter for screening for malignant neoplasm of colon] Onset: 06-28-2014 Episodic Other skin disorders (1 source) Mass of skin; Translations: [Localized swelling, mass and lump, unspecified] Onset: 11-20-2005 11-20-2005 Episodic Results Test Name Value Interpretation Reference Range Facil ity Vital Signs Date Time Vital Sign Value Performing Clinician Faci lity 02-24-2023 19:54-0500 Body temperature 97.11 [degF] Kendrick Frazier MD Work Phone: [facility] 02-24-2023 19:54-0500 Body weight 70.85 kg Kendrick Frazier MD Work Phone: [facility] 02-24-2023 19:54-0500 Diastolic blood pressure 88 mm[Hg] Kendrick Frazier MD Work Phone: [facility] 02-24-2023 19:54-0500 Heart rate 86 /min Kendrick Frazier MD Work Phone: [facility] 02-24-2023 19:54-0500 Respiratory rate 17 /min Kendrick Frazier MD Work Phone: [facility] 02-24-2023 19:54-0500 SaO2% (BldA) [Mass fraction] 94 % Kendrick Frazier MD Work Phone: [facility] 02-24-2023 19:54-0500 Systolic blood pressure 158 mm[Hg] Kendrick Frazier MD Work Phone: [facility] Encounters Encounter Date Encounter Type Care Provider Facility Start: 02-24-2023 End: 02-24-2023 ambulatory ISAIAH GALLEGO Facility:[facility] Start: 02-24-2023 End: 02-24-2023 Patient encounter procedure Kendrick Frazier MD Work Phone: [facility] Procedures Date Procedure Procedure Detail Performing Clinician Cataract (morphologic abnormality) ELENA SIMMONS [employer] Plan of Treatment Date Care Activity Detail Author Start: 02-11-2032 Urine microalbumin profile DTa P,Tdap,Td Vaccine (3 - Td or Tdap) [facility] Start: 11-20-2022 Covid-19 Vaccine () Covid-19 Vaccine () [facility] Start: 03-22-2022 Advance Directive Discussion Advance Directive Discussion [facility] Start: 03-22-2022 Depression Assessment Depression Ass essment [facility] Start: 09-26-2011 Diabetes Screening Diabetes Screenin g [facility] Start: 2002 RSV Vaccine (1 - 1-d ose 60+ series) RSV Vaccine (1 - 1-dose 60+ series) [facility] Immunizations Immunization Date Immunization Notes Care Provider Fa cilimalcolm 01-05-2023 pneumococcal 20-kaiden nt conjugate vaccine ELENA SIMMONS [employer] [facility] Payers Date Payer Category Payer Medicare UHC AARP MEDICAR E [facility] MEDICARE HMO [id number] 2020-Present [phone] [address] [address] [place] [address] HMO [id number] 2020 Private Health Insurance [id number] 1942 Unknown [id number] 1942 Unknown [id number] 1942 Unknown [id number] 1942 Unknown [id number] 1942 Unknown [id number] 1942 Unknown [id number] 1942 Unknown [id number] 1942 Unknown [id number] 1942 Unknown [id number] 1942 Unknown [id number] 1942 Unknown [id number] Social History Date Type Detail Facility Start: 03-07-2019 End: 02-24-2023 Tobacco smoking status Never smoked tobacco (finding) [facility] Clinical Notes 06-27-2007 to 02-24-2023 Kendrick Frazier MD - 02/24/2023 7:59 PM [facility] Note Date & Type Note Facility 02-24-2023 Note HNO ID: [id number] Author: Kendrick Frazier MD Service: ? Author Type: Physician Type: Progress Notes Filed: 2023 3:10 PM Note Text: Patient presents with: Cough: X 5 weeks HPI: Coughing for 5 weeks. COVID test was negative at onset of symptoms. She saw her PCP a week ago and was treated with tessalon and a steroid. [facility] She was exposed her granddaughter with RSV about a week ago and may have worsened since. She has not had a CXR. She coughed until she vomited tonight. Positive symptoms: Cough, Shortness of breath during coughing spells, Negative symptoms: Chest pain, Sore throat, Earache, Sinus pressure, Nasal Congestion, Rhinorrhea, Post nasal drainage, Fever, Chills, Nausea, Diarrhea, OTC: tessalon. Zpak 01/29/23. Tessalon 01/29/23 and 02/19/23. PAST MEDICAL HISTORY Diagnosis Date Benign neoplasm of stomach Esophageal reflux Glaucoma Snoring Urinary calculus, unspecified Renal stones PAST SURGICAL HISTORY Procedure Laterality Date COLONOSCOPY FLX DX W/COLLJ SPEC WHEN PFRMD 2003 ENMANUEL Colonoscopy COLONOSCOPY FLX DX W/COLLJ SPEC WHEN PFRMD 06/28/2014 Colonoscopy COLONOSCOPY FLX DX W/COLLJ SPEC WHEN PFRMD 05/15/2019 Colonoscopy ESOPHAGOGASTRODUODENOSCOPY TRANSORAL DIAGNOSTIC 06/27/2007 EGD ESOPHAGOGASTRODUODENOSCOPY TRANSORAL DIAGNOSTIC 06/28/2014 EGD ESOPHAGOGASTRODUODENOSCOPY TRANSORAL DIAGNOSTIC 05/15/2019 EGD XCAPSL CTRC RMVL INSJ IO LENS PROSTH W/O ECP right eye MEDICATIONS: Current Outpatient Medications Medication Sig ferrous sulfate 325 mg (65 mg iron) EC tablet 325 mg. calcium carbonate-vitamin D3 600mg (1,500mg) -1,000 unit cap Take by mouth. Cholecalciferol, Vitamin D3, 25 mcg (1,000 unit) cap Take 2,000 Units by mouth once daily. ascorbate calcium/multivit-min (VIT C,ASCORB.CALCIUM,,MV-MINS, ORAL) Take by mouth. timolol hemihydrate (BETIMOL) 0.25 % ophthalmic solution Use in the right eye once daily. latanoprost (XALATAN) 0.005 % ophthalmic solution Use 1 Drop in both eyes once daily. pravastatin sodium(PRAVACHOL 20 MG TAB) Take one(1) tablet daily at bedtime. esomeprazole mag trihydrate(NEXIUM 40 MG CAP) Take one(1) tablet daily. aspirin(ECOTRIN LOW STRENGTH 81 MG TAB) take 2 daily No current facility-administered medications for this visit. ALLERGIES: ALLERGIES Allergen Reactions Demerol [Meperidine* GI Upset, Vomiting Stadol [Butorphanol* GI Upset, Vomiting Sulfa (Sulfonamide * Hives VITALS: BP 158/88 Pulse 86 Temp 36.2 ?C (97.1 ?F) Resp 17 Wt 70.9 kg (156 lb 3.2 oz) SpO2 94% BMI 30.51 kg/m? PHYSICAL EXAM: GEN: Pleasant, in no acute distress. HEENT: PERRL, EOMI, conjunctiva clear Ears: canals with cerumen, visible TMs without erythema. Sinuses: non-tender frontal sinus, non-tender maxillary sinuses Throat: moist mucous membranes, no erythema, no exudate Neck: supple, no thyromegaly, no lymphadenopathy HEART: regular rate and rhythm, no murmurs LUNGS: clear to auscultation, no wheezes or crackles, no increased WOB ASSESSMENT/PLAN: 1. Subacute cough - ICD9: 786.2, ICD10: R05.2 (primary diagnosis) - XR CHEST 2V FRONTAL/LAT - no infiltrate, vascular congestion, or intrathoracic mass. Suspect initial bronchitis and possible secondary infection with RSV. Lung exam and imaging are benign. Continue cough suppressant and follow up with PCP. Xray reviewed with radiologist soft tissue is benign appearing also. Kendrick Frazier MD [facility] 02-24-2023 Note HNO ID: [id number] Author: Debra Wilson RT(R) Service: Radiology Author Type: Technologist Type: Progress Notes Filed: 02/24/2023 8:15 PM Note Text: Radiology Service Progress Note PATIENT NAME: Saida Barton DATE OF SERVICE: February 24, 2023 TIME: 8:07 PM PATIENT IDENTITY VERIFICATION COMPLETED USING TWO (2) IDENTIFIERS: Name and Date of confirmed by patient verbally. FALL SCREENING: Has the patient had 2 falls in the last year or 1 fall with injury or currently using an Ambulatory Assistive Device (Walker, Cane, Wheelchair, Crutches, etc.)? No PATIENT GENDER DATA: Female. status: : No status: NO. PATIENT RELEVANT IMPLANT DATA REVIEWED: Yes RADIOLOGY DEPARTMENT: General X-ray: Exam(s) Completed: Chest X-Ray PERIPHERAL IV DATA: Not applicable SIGNED BY: RT Alexandre(R) February 24, 2023 8:07 PM [facility] 02-24-2023 History of Present illness Narrative Patient presents with: Cough: X 5 weeks HPI: Coughing for 5 weeks. COVID test was negative at onset of symptoms. She saw her PCP a week ago and was treated with tessalon and a steroid. [facility] She was exposed her granddaughter with RSV about a week ago and may have worsened since. She has not had a CXR. She coughed until she vomited tonight. Positive symptoms: Cough, Shortness of breath during coughing spells, Negative symptoms: Chest pain, Sore throat, Earache, Sinus pressure, Nasal Congestion, Rhinorrhea, Post nasal drainage, Fever, Chills, Nausea, Diarrhea, OTC: tessalon. Zpak 01/29/23. Tessalon 01/29/23 and 02/19/23. PAST MEDICAL HISTORY Diagnosis Date Benign neoplasm of stomach Esophageal reflux Glaucoma Snoring Urinary calculus, unspecified Renal stones PAST SURGICAL HISTORY Procedure Laterality Date COLONOSCOPY FLX DX W/COLLJ SPEC WHEN PFRMD 2003 [place]LL Colonoscopy COLONOSCOPY FLX DX W/COLLJ SPEC WHEN PFRMD 06/28/2014 Colonoscopy COLONOSCOPY FLX DX W/COLLJ SPEC WHEN PFRMD 05/15/2019 Colonoscopy ESOPHAGOGASTRODUODENOSCOPY TRANSORAL DIAGNOSTIC 06/27/2007 EGD ESOPHAGOGASTRODUODENOSCOPY TRANSORAL DIAGNOSTIC 06/28/2014 EGD ESOPHAGOGASTRODUODENOSCOPY TRANSORAL DIAGNOSTIC 05/15/2019 EGD XCAPSL CTRC RMVL INSJ IO LENS PROSTH W/O ECP right eye MEDICATIONS: Current Outpatient Medications Medication Sig ferrous sulfate 325 mg (65 mg iron) EC tablet 325 mg. calcium carbonate-vitamin D3 600mg (1,500mg) -1,000 unit cap Take by mouth. Cholecalciferol, Vitamin D3, 25 mcg (1,000 unit) cap Take 2,000 Units by mouth once daily. ascorbate calcium/multivit-min (VIT C,ASCORB.CALCIUM,,MV-MINS, ORAL) Take by mouth. timolol hemihydrate (BETIMOL) 0.25 % ophthalmic solution Use in the right eye once daily. latanoprost (XALATAN) 0.005 % ophthalmic solution Use 1 Drop in both eyes once daily. pravastatin sodium(PRAVACHOL 20 MG TAB) Take one(1) tablet daily at bedtime. esomeprazole mag trihydrate(NEXIUM 40 MG CAP) Take one(1) tablet daily. aspirin(ECOTRIN LOW STRENGTH 81 MG TAB) take 2 daily No current facility-administered medications for this visit. ALLERGIES: ALLERGIES Allergen Reactions Demerol [Meperidine* GI Upset, Vomiting Stadol [Butorphanol* GI Upset, Vomiting Sulfa (Sulfonamide * Hives VITALS: BP 158/88 Pulse 86 Temp 36.2 C (97.1 F) Resp 17 Wt 70.9 kg (156 lb 3.2 oz) SpO2 94% BMI 30.51 kg/m PHYSICAL EXAM: GEN: Pleasant, in no acute distress. HEENT: PERRL, EOMI, conjunctiva clear Ears: canals with cerumen, visible TMs without erythema. Sinuses: non-tender frontal sinus, non-tender maxillary sinuses Throat: moist mucous membranes, no erythema, no exudate Neck: supple, no thyromegaly, no lymphadenopathy HEART: regular rate and rhythm, no murmurs LUNGS: clear to auscultation, no wheezes or crackles, no increased WOB ASSESSMENT/PLAN: 1. Subacute cough - ICD9: 786.2, ICD10: R05.2 (primary diagnosis) - XR CHEST 2V FRONTAL/LAT - no infiltrate, vascular congestion, or intrathoracic mass. Suspect initial bronchitis and possible secondary infection with RSV. Lung exam and imaging are benign. Continue cough suppressant and follow up with PCP. Xray reviewed with radiologist soft tissue is benign appearing also. Kendrick Frazier MD documented in this encounter [facility] 12-03-2022 Note . MICRO - Microbiology PROCEDURE: Urine Culture [*1] SOURCE: Urine, Clean Catch BODY SITE: COLLECTED DATE/TIME: 12/01/2022 16:36 EDT RECEIVED DATE/TIME: 12/01/2022 20:46 EDT START DATE/TIME: 12/01/2022 20:46 EDT FREE TEXT SOURCE: FINAL REPORTS Final Report [] Verified Date/Time/Personnel: 12/03/2022 07:45 EDT <10,000 cfu/ml. No Significant growth. Sensitivity not indicated. PRELIMINARY REPORTS Preliminary Report [] Verified Date/Time/Personnel: 12/02/2022 11:32 EDT Culture results pending. Performing Locations *1: This test was performed at: [address], [address] , [facility] ([place]) 11-05-2022 Note . MICRO - Microbiology PROCEDURE: Urine Culture [*1] SOURCE: Urine, Clean Catch BODY SITE: COLLECTED DATE/TIME: 11/03/2022 16:02 EDT RECEIVED DATE/TIME: 11/04/2022 14:35 EDT START DATE/TIME: 11/04/2022 14:35 EDT FREE TEXT SOURCE: FINAL REPORTS Final Report [] Verified Date/Time/Personnel: 11/05/2022 11:18 EDT 10,000 - 50,000 cfu/ml Multiple bacterial morphotypes present. Probable Contamination. Suggest recollection if clinically indicated. Performing Locations *1: This test was performed at: [address], [address] , [facility] ([place]) 11-02-2022 Evaluation + Plan note Future Scheduled TestsFerritin 11/02/22Iron Level 11/02/22Complete Blood Count 11/02/22Lipid Profile 10/31/22Protein Electrophoresis Panel 11/02/22Complete Metabolic Panel 10/31/22[facility]BC 11/02/22[facility] Lab Send Out (Non-Blood Specimens) 11/03/22BD Bone Density DEXA Axial Skeleton 02/12/22XR Mandible Minimum 4 Views 08/11/22 [facility] 04-14-2022 Note ORIGINAL EXAMINATION: BONE DENSITOMETRY 04/14/2022 11:17 am TECHNIQUE: A bone density dual x-ray absorptiometry (DEXA) scan was performed of the lumbar spine and left hip COMPARISON: DEXA scan 02/05/2020, 03/26/2017, 11/24/2012 HISTORY: ORDERING SYSTEM PROVIDED HISTORY: Reason for Exam: Osteoporosis Screening FINDINGS: T Score Left Femoral Neck: -1.8 Left Femoral Neck: 0.645 (g/cm2) T Score Left Hip: -1.3 Left Hip: 0.779 (g/cm2) T Score Lumbar Spine: -2.6 Lumbar Spine: 0.759 (g/cmd2) *By the World Health Organization standards: Osteopenia is present when the bone mineral density is greater than 1 standard deviation (SD) but less than 2.5 SDs below a young normal sex matched population. Osteoporosis is present when the bone mineral density is equal to or greater than 2.5 SDs below a young normal sex matched population. BMD Change from previous Hip: 3.6% BMD Change from previous Lumbar Spine: 4.6% IMPRESSION: Osteoporosis by WHO criteria. I have personally reviewed the images of this examination and agree with the resident's findings and interpretation. Interpreted by: Demetris Brown DO Preliminary Report By: Dewayne Kevin Electronically signed By Demetris Brown DO Dictated Date: 04/14/2022 11:18:40 AM Prelim Date: 04/14/2022 11:27:13 AM Sign Date: 04/14/2022 11:27:13 AM Ordering Provider: [facility] 04-14-2022 Note ORIGINAL EXAMINATION: BONE DENSITOMETRY 04/14/2022 11:17 am TECHNIQUE: A bone density dual x-ray absorptiometry (DEXA) scan was performed of the lumbar spine and left hip COMPARISON: DEXA scan 02/05/2020, 03/26/2017, 11/24/2012 HISTORY: ORDERING SYSTEM PROVIDED HISTORY: Reason for Exam: Osteoporosis Screening FINDINGS: T Score Left Femoral Neck: -1.8 Left Femoral Neck: 0.645 (g/cm2) T Score Left Hip: -1.3 Left Hip: 0.779 (g/cm2) T Score Lumbar Spine: -2.6 Lumbar Spine: 0.759 (g/cmd2) *By the World Health Organization standards: Osteopenia is present when the bone mineral density is greater than 1 standard deviation (SD) but less than 2.5 SDs below a young normal sex matched population. Osteoporosis is present when the bone mineral density is equal to or greater than 2.5 SDs below a young normal sex matched population. BMD Change from previous Hip: 3.6% BMD Change from previous Lumbar Spine: 4.6% IMPRESSION: Osteoporosis by WHO criteria. I have personally reviewed the images of this examination and agree with the resident's findings and interpretation. Interpreted by: Demetris Brown DO Preliminary Report By: Dewayne Kevin Electronically signed By Demetris Brown DO Dictated Date: 04/14/2022 11:18:40 AM Prelim Date: 04/14/2022 11:27:13 AM Sign Date: 04/14/2022 11:27:13 AM Ordering Provider: ELENA SIMMONS [facility] documented as of this encounter (statuses as of 2023) [facility] Appointment Date:08/12/2021 07:00:00 AM Scheduled Provider:ELENA SIMMONS APRN-COUNTY HISTORIAN Location:[facility] Appointment Type:PC OV [facility] Evaluation + Plan note Future Appointments Appointment Date:08/11/2022 07:00:00 AM Scheduled Provider:ELENA SIMMONS APRN-COUNTY HISTORIAN Location:[facility] Appointment Type:PC OV Future Scheduled Tests Laboratory* Complete Blood Count 02/10/22 * Complete Metabolic Panel 02/10/22 Radiology* BD Bone Density DEXA Axial Skeleton 02/10/22 * BD Bone Density DEXA Axial Skeleton 02/12/22 [facility] Evaluation + Plan note Future Appointments Appointment Date:08/11/2022 07:00:00 AM Scheduled Provider:ELENA SIMMONS APRN-COUNTY HISTORIAN Location:[facility] Appointment Type:PC OV Diagnostic Tests Pending * Urine Culture 02/16/22 Future Scheduled Tests Laboratory* Complete Blood Count 02/10/22 * Complete Metabolic Panel 02/10/22 Radiology* BD Bone Density DEXA Axial Skeleton 02/10/22 * BD Bone Density DEXA Axial Skeleton 02/12/22 [facility] Evaluation + Plan note Future Appointments Appointment Date:08/11/2022 07:00:00 AM Scheduled Provider:ELENA SIMMONS ELECT[employer]OMECH[employer]ISMS DES[employer]IAN Location:[facility] Appointment Type:PC OV Future Scheduled Tests Laboratory* Complete Blood Count 02/10/22 * Complete Metabolic Panel 02/10/22 Radiology* BD Bone Density DEXA Axial Skeleton 02/12/22 [facility] evaluation + Plan note Future Appointments Appointment Date:08/11/2022 07:00:00 AM Scheduled Provider:ELENA SIMMONS APRN-COUNTY HISTORIAN Location:[facility] Appointment Type:PC OV Future Scheduled Tests Laboratory* Complete Blood Count 02/10/22 * Complete Blood Count 05/21/22 * Lipid Profile 05/21/22 * Complete Metabolic Panel 02/10/22 * Complete Metabolic Panel 05/21/22 Radiology* BD Bone Density DEXA Axial Skeleton 02/12/22 [facility] Evaluation + Plan note Future Appointments Appointment Date:08/10/2022 08:00:00 AM Scheduled Provider: Location:[facility] Appointment Type:[facility] ED Appointment Date:08/11/2022 07:00:00 AM Scheduled Provider:ELENA SIMMONS APRN-COUNTY HISTORIAN Location:[facility] Appointment Type:PC OV Future Scheduled Tests Laboratory* Complete Blood Count 02/10/22 * Complete Metabolic Panel 02/10/22 Radiology* BD Bone Density DEXA Axial Skeleton 02/12/22 [facility] Evaluation + Plan note Future Appointments Appointment Date:10/01/2022 08:00:00 AM Scheduled Provider:ELENA SIMMONS APRN-COUNTY HISTORIAN Location:[facility] Appointment Type:PC OV Future Scheduled Tests Laboratory* Complete Blood Count 02/10/22 * Complete Metabolic Panel 02/10/22 Radiology* BD Bone Density DEXA Axial Skeleton 02/12/22 * XR Mandible Minimum 4 Views 08/11/22 [facility] evaluation + Plan note Future Appointments Appointment Date:02/04/2023 07:30:00 AM Scheduled Provider:ELENA SIMMONS ELECTROMECHANISMS DESIGN DRAFTER-[employer] H[employer]ORIAN Location:[facility] Appointment Type:PC OV Diagnostic Tests Pending * Urinary Calculi Panel 11/03/22 Future Scheduled Tests Laboratory* Ferritin 11/02/22 * Iron Level 11/02/22 * Complete Blood Count 02/10/22 * Complete Blood Count 11/02/22 * Lipid Profile 10/31/22 * Protein Electrophoresis Panel 11/02/22 * Complete Metabolic Panel 10/31/22 * Complete Metabolic Panel 02/10/22 * TIBC 11/02/22 * MISC Lab Send Out (Non-Blood Specimens) 11/03/22 Radiology* BD Bone Density DEXA Axial Skeleton 02/12/22 * XR Mandible Minimum 4 Views 08/11/22 [facility] Evaluation + Plan note Future Appointments Appointment Date:02/04/2023 07:30:00 AM Scheduled Provider:ELENA SIMMONS [facility] Location:[facility] Appointment Type: OV Future Scheduled Tests Laboratory* Ferritin 11/02/22 * Iron Level 11/02/22 * Complete Blood Count 02/10/22 * Complete Blood Count 11/02/22 * Lipid Profile 10/31/22 * Protein Electrophoresis Panel 11/02/22 * Complete Metabolic Panel 10/31/22 * Complete Metabolic Panel 02/10/22 * TIBC 11/02/22 * [facility] (Non-Blood Specimens) 11/03/22 Radiology* BD Bone Density DEXA Axial Skeleton 02/12/22 * XR Mandible Minimum 4 Views 08/11/22 * CT Abdomen and Pelvis w/o contrast 12/01/22 [facility] Evaluation + Plan note Future Appointments Appointment Date:02/04/2023 07:30:00 AM Scheduled Provider:ELENA SIMMONS [facility] Location:[facility] Appointment Type: OV Future Scheduled Tests Laboratory* Ferritin 11/02/22 * Iron Level 11/02/22 * Complete Blood Count 02/10/22 * Complete Blood Count 11/02/22 * Lipid Profile 10/31/22 * Protein Electrophoresis Panel 11/02/22 * Complete Metabolic Panel 10/31/22 * Complete Metabolic Panel 02/10/22 * TIBC 11/02/22 * MISC Lab Send Out (Non-Blood Specimens) 11/03/22 Radiology* BD Bone Density DEXA Axial Skeleton 02/12/22 * XR Mandible Minimum 4 Views 08/11/22 [facility] Evaluation note* Diagnosis Subacute cough- Primary Cough documented in this [facility] Narrative No data available for this section [facility] Discharge instructions No data available for this section [facility] Progress note No data available for this section [facility] Summary Purpose Family History No Family History Records Found Advance Directives No Advanced Directives Records FoundNo Advanced Directives Records Found Additional Source Comments Care Team (unrecognized sect ion and content) Care Team (unrecognized sect ion and content) Care Team Personnel Name: ELENA SIMMONS ELECTROMECH[employer]IS[employer] DESIGN DRAFTER-[employer]ORIAN Position: P4 Advanced Practice Nurse Member Role: Primary Care Physician Address: Address: [address] [place] [address] Care Team Related Persons Name: ELENA BARTON Care Team Personnel Name: ELENA SIMMONS ELECTROMECH[employer]IS[employer] DESIGN DRAFTER-[employer] H[employer]IAN Position: P4 Advanced Practice Nurse Member Role: Primary Care Physician Address: Address: [address] [place] [address] Care Team Related Persons Name: ELENA BARTON Care Team Personnel Name: ELENA SIMMONS E[employer]ROMECH[employer]IS[employer] DESIGN D[employer]TER-[employer]IAN Position: P4 Advanced Practice Nurse Member Role: Primary Care Physician Address: Address: [address] [place] [address] Care Team Related Persons Name: ELENA BARTON INFORMATION SOURCE (unrecogn ized section and content) DATE CREATED AUTHOR AUTHOR'S ORGANIZ ATION 02/27/2023 [facility] Source Comments (unrecognize d section and content) In the event this informatio n is protected by the Federal Confidentiality of Alcohol and Drug Abuse Patient Records regulations: The Federal rules restrict any use of the information to criminally investigate or prosecute any alcohol or drug abuse patient.[facility] Reason for Visit (unrecogniz ed section and content) FOR RECORDS PERTAINING TO PATIENTS WHO ARE OR HAVE BEEN ENROLLED IN A CHEMICAL DEPENDENCY/SUBSTANCEABUSE PROGRAM, SOME INFORMATION MAY BE OMITTED. This clinical summary was aggregated from multiple sources. Caution should be exercised in using it in the provision of clinical care. This summary normalizes information from multiple sources, and as a consequence, information in this document may materially change the coding, format and clinical context of patient data. In addition, data may be omitted in some cases. CLINICAL DECISIONS SHOULD BE BASED ON THE PRIMARY CLINICAL RECORDS. [facility]. provides no warranty or guarantee of the accuracy or completeness of information in this document.
== END | disposition home or self-care (01) ==
LOC: CT 07:12
PROVIDERS: PCP Nurse Practitioner Primary Care; Referring Provider Urology; Visit Provider Urology
DX: R10.9 Unspecified abdominal pain (principal); N20.0 Calculus of kidney
CPT/HCPCS: 74176

== ENCOUNTER 2023-06-26 06:12 | Inpatient (IN) | payer MEDICARE, SELFPAY ==
[2023-06-26] VITALS (15 sets, daily range): BP systolic 82–184; BP diastolic 43–87; PULSE 68–120; RESP 15–18; TEMP 35.8–37.8; O2SAT 87–98; BMI 31.4; BMI 31.0
--- NOTE | 2023-06-26 06:26 | CT_ITS ---
INDICATION: Pain: Left flank pain EXAMINATION: CT ABDOMEN AND PELVIS WITHOUT CONTRAST - CT Abdomen And Pelvis W/O Contrast Injection TECHNIQUE: Helically acquired images were obtained of the abdomen and pelvis without oral or IV contrast. A radiation dose optimization technique was used for this scan. IV Contrast dosage and agent: None. Oral contrast: None. RADIATION DOSAGE (If Supplied By Facility): CTDIvol = ( 6.67 ) mGy, DLP = ( 299.88 ) mGycm COMPARISON: No relevant prior comparison study available FINDINGS: LOWER CHEST: Essentially unremarkable. No cardiomegaly or pericardial effusion. LIVER: Homogeneous. No focal lesion is seen without contrast. GALLBLADDER AND BILIARY TREE: No calcified gallstones. No gallbladder distension or wall edema. No intra- or extrahepatic biliary ductal dilation. PANCREAS: No focal cystic or solid mass. SPLEEN: Normal size without focal cystic or solid mass. ADRENAL GLANDS: No nodules. KIDNEYS AND URETERS: Mild left hydronephrosis due to 7 mm stone in the proximal left ureter. Tiny nonobstructing stone in the lower pole of the right kidney. No evidence of right hydronephrosis. PERITONEUM: No ascites or free air. No other fluid collection. BOWEL: No evidence of acute appendicitis. No stomach or bowel distension. Sigmoid diverticulosis without evidence of acute diverticulitis. LYMPH NODES: No enlarged mesenteric or retroperitoneal lymph nodes. VESSELS: Aorta is non-dilated. URINARY BLADDER: Unremarkable. REPRODUCTIVE ORGANS: No pelvic masses. ABDOMINAL WALL: No discrete abdominal or pelvic wall hernia. BONES: No lytic or blastic abnormality. Narrowing of L3-4 disc space with minimal anterolisthesis of L3 over L4. CT/Abdomen/Pelvis without Cont IMPRESSION: 1. Mild left hydronephrosis due to 7 mm stone in the proximal left ureter. 2. Tiny nonobstructing stone in the right kidney. Electronically Signed: Fredis Baum MD at 8:43 EDT ,
--- NOTE | 2023-06-26 06:27 | EDS_ITS ---
HPI <Dr. Pablo Rosales MD - Last Filed: 06/26/23 07:35> HPI - GI History of Present Illness Chief Complaint: Abd Pain Detail of Chief Complaint: Sudden onset left flank pain about 4 AM. Nausea and vomiting. Informant: patient and spouse/S.O. Abdominal Pain/Flank Pain Onset: Today and Hours Context: Sudden Onset Timing: Continuous Location: LUQ and Left Flank Current Severity: Moderate Maximum Severity: Moderate Worsened by: Nothing Relieved by: Nothing Nausea/Vomiting/Emesis GI Symptom: Positive for Nausea and Vomiting Onset: Today Severity: Mild Diarrhea/Melena/Hematochezia GI Symptom: Negative for Diarrhea, Melena or Hematochezia Associated Symptoms Associated Symptoms: Negative for Dysuria, Frequency, Hematuria or Urgency Narrative Narrative: 83-year-old female complaining of left upper quadrant left flank pain. History of kidney stones. No prior abdominal surgeries. Denies any fever, dysuria or hematuria. Pain awoke her from sleep around 4 AM. She was feeling fine yesterday and the days preceding. She denies any fever. Prior similar symptoms: Yes Recent Illness/Hospitalization: No PFSH <Dr. Pablo Rosales MD - Last Filed: 06/26/23 07:35> [facility], [facility] Medical History GERD (gastroesophageal reflux disease) Mixed hyperlipidemia Osteoarthritis Premature ventricular contraction Home Medications aspirin 81 mg chewable tablet 162 mg PO DAILY@0800 heart health 12/29/15 [History Last Taken 09/11/18] latanoprost 0.005 % eye drops 1 drp EACH EYE QHS eyes 12/29/15 [History Last Taken 09/11/18] ascorbate calcium (vitamin C) 500 mg tablet 500 mg PO DAILY vitamin 05/27/20 [History Last Taken Unknown] pravastatin 40 mg tablet 40 mg PO DAILY #90 tabs 07/15/20 [Rx Last Taken Unknown] timolol 0.5 % eye drops 1 drp RIGHT EYE DAILY eye health 07/15/20 [History Last Taken Unknown] cholecalciferol (vitamin D3) 125 mcg (5,000 unit) capsule 125 mcg PO DAILY 02/03/21 [History Last Taken Unknown] ferrous sulfate 325 mg (65 mg iron) tablet,delayed release 325 mg PO DAILY 04/02/23 [History Last Taken Unknown] omeprazole 20 mg capsule,delayed release 20 mg PO DAILY 04/02/23 [History Last Taken Unknown] tamsulosin 0.4 mg capsule mg PO 04/02/23 [History Last Taken Unknown] Allergy/AdvReac Type Severity Reaction Status Date / Time Sulfa (Sulfonamide Allergy Rash Verified 04/02/23 08:24 Antibiotics) butorphanol [From Stadol] AdvReac Vomiting Verified 04/02/23 08:24 meperidine [From Demerol] AdvReac Vomiting Verified 04/02/23 08:24 Family History Mother Cancer Cervical cancer Surgical History Cataract extraction status of right eye Social History household members: spouse Smoking Status: Never smoker alcohol intake: current details: occasional substance use type: does not use caffeine: No ROS <Dr. Pablo Rosales MD - Last Filed: 06/26/23 07:35> ROS ED ROS Narrative Left flank pain. Nausea and vomiting. No fever. No dysuria. Review of Systems ROS Unobtainable: Denies due to encephalopathy Constitutional Constitutional ED: Denies chills or fever(s) ENT ENT ED: Denies ear pain Cardiovascular Cardiovascular: Denies chest pain Respiratory/Chest Respiratory/Chest: Denies cough, dyspnea or dyspnea on exertion Gastrointestinal Gastrointestinal: Reports abdominal pain, nausea and vomiting; Denies constipation, diarrhea or melena Genitourinary Genitourinary ED: Denies dysuria, hematuria or urinary frequency Musculoskeletal Musculoskeletal: Denies arthralgias Integumentary Denies abscess or Abrasions Neurologic Neurologic: Denies headache(s) Psychiatric Psychiatric: Denies anxiety or depression Endocrine Endocrinology: Denies polydipsia or polyphagia Hematologic/Lymphatic Hematologic/Lymphatic: Denies easy bleeding Allergic/Immunologic Allergic/Immunologic ED: Denies mouth swelling, tongue swelling or urticaria EXAM <Dr. Pablo Rosales MD - Last Filed: 06/26/23 07:35> Physical Exam Narrative Exam Narrative: 83-year-old female complain left flank pain. Vital signs stable and afebrile. Pulse ox 90% on room air no signs hypoxia. Actively nauseated. H EENT exam unremarkable. Pupils round react light. No facial droop. Moist mucous membranes. Neck nontender no lymphadenopathy. Lungs clear to auscultation bilateral. Heart regular rhythm rate about 70 no murmur. Chest wall and ribs nontender. Abdomen soft nondistended normal bowel sounds no peritoneal signs. Mild left upper quadrant reproducible tenderness. Right upper and right lower quadrant unremarkable. No distention. No hernia or mass. No pulsatile mass. No signs of trauma. No rash. No CVA tenderness no back tenderness or spine. Moving all 4 extremities. Nontender no edema. Normal strength. Normal sensation. Back nontender. No CVA tenderness. Neurologically she is awake and alert with no focal motor deficits. Answering questions following commands. Const Vital Signs: 06/26/23 06:13 06/26/23 06:12 06/26/23 06:59 Temperature 96.4 F L 96.4 F L Temperature Source Temporal Temporal Pulse Rate 70 71 Respiratory Rate 16 16 Blood Pressure 182/86 H 184/82 H Blood Pressure Mean 118 116 Pulse Ox 98 98 87 Oxygen Delivery Method Room Air Room Air Room Air Oxygen Flow Rate (L/min) 06/26/23 06:59 06/26/23 07:15 06/26/23 08:00 Temperature 97.2 F L 97.2 F L Temperature Source Oral Oral Pulse Rate 72 76 Respiratory Rate 16 15 Blood Pressure 158/77 H 171/75 H Blood Pressure Mean 104 107 Pulse Ox 94 97 95 Oxygen Delivery Method Nasal Cannula Oxygen Flow Rate (L/min) 2 06/26/23 09:00 Temperature 97.2 F L Temperature Source Oral Pulse Rate 73 Respiratory Rate 16 Blood Pressure 148/79 H Blood Pressure Mean 102 Pulse Ox 95 Oxygen Delivery Method Oxygen Flow Rate (L/min) Positive well nourished and well developed; Negative for cachectic, contractures or unkempt General Appearance ED: well developed and NAD; Negative for unkempt, cachectic, contractures or pallor Nutritional Appearance: Negative for cachectic HEENT Reports moist mucous membranes; Denies dry mucous membranes normocephalic and atraumatic; Negative for trauma or tenderness Mouth ED: No dry mucous membranes Mouth: No dry mucous membranes Eyes PERRL and EOMs intact bilaterally General Eye ED: Negative for pale conjunctiva or scleral icterus Neck no lymphadenopathy, supple and no JVD General: Negative for tenderness Carotids: Negative for other Lymph Lymphatic: Negative for other Resp normal respiratory effort and clear to auscultation bilaterally Effort and Inspection: Negative for respiratory distress Auscultation: Negative for rales, rhonchi, wheezes, diminished lung sounds or other Cardio regular rate, regular rhythm, S1 normal heart sound, S2 normal heart sound and no murmurs Rate: Negative for bradycardia or tachycardic Rhythm: Negative for abnormal rhythm GI non-distended and no masses; Negative for non-tender GI Narrative: Very mild left upper quadrant tenderness. No rebound, guarding or rigidity. No hernia or mass. No distention. No pulsatile mass. Both the right upper and right lower quadrants are completely nontender. No McBurney's point tenderness. No Littlejohn sign. No rashes or signs of trauma. Inspection: Negative for abdominal distention Auscultation: normoactive bowel sounds Palpation: soft and tender; Negative for guarding, hernia, mass, pulsatile mass or rebound tenderness present Back/Spine no CVA tenderness General Back: Negative for CVA tenderness Cervical Spine: Negative for cervical spine tenderness Thoracic Spine / Upper Back: Negative for thoracic spinal tenderness Lumbar Spine / Lower Back: Negative for lumbar spinal tenderness Coccyx: Negative for other Extremity full ROM General Extremety ED: Negative for edema or tenderness General Extremity: Negative for edema Neuro CN's II-XII intact bilaterally and moves all extremities Sensorium / Orientation: alert, oriented to person, oriented to place and oriented to time; Negative for orientation impaired, confused, lethargic or stuporous Motor Exam: strength 5/5 throughout Psych mental status grossly normal and thought process normal Appearance: Negative for unkempt Attitude: No agitated Mood & Affect: Negative for depressed, anxious or tearful Skin no wounds General Skin Exam: Negative for jaundice or pallor Lesions: no lesions Rashes: no rashes Trauma: Negative for abrasion Nails: Negative for discolored <Dr. Wiley Barton, DO - Last Filed: 06/26/23 09:59> Physical Exam Const Vital Signs: 06/26/23 06:13 06/26/23 06:12 06/26/23 06:59 Temperature 96.4 F L 96.4 F L Temperature Source Temporal Temporal Pulse Rate 70 71 Respiratory Rate 16 16 Blood Pressure 182/86 H 184/82 H Blood Pressure Mean 118 116 Pulse Ox 98 98 87 Oxygen Delivery Method Room Air Room Air Room Air Oxygen Flow Rate (L/min) 06/26/23 06:59 06/26/23 07:15 06/26/23 08:00 Temperature 97.2 F L 97.2 F L Temperature Source Oral Oral Pulse Rate 72 76 Respiratory Rate 16 15 Blood Pressure 158/77 H 171/75 H Blood Pressure Mean 104 107 Pulse Ox 94 97 95 Oxygen Delivery Method Nasal Cannula Oxygen Flow Rate (L/min) 2 06/26/23 09:00 Temperature 97.2 F L Temperature Source Oral Pulse Rate 73 Respiratory Rate 16 Blood Pressure 148/79 H Blood Pressure Mean 102 Pulse Ox 95 Oxygen Delivery Method Oxygen Flow Rate (L/min) [facility] <Dr. Pablo Rosales MD - Last Filed: 06/26/23 07:35> [facility] Narrative Medical decision making narrative: 83-year-old female sudden onset left flank and abdominal pain tonight around 4 AM. Associated nausea and vomiting. May be a kidney stone versus UTI versus other. Clinically is not appendicitis or gallbladder. Does not obstruction. She will be treated with IV morphine and Zofran. IV fluids. Labs and CT abdomen pelvis without contrast for potential stone. Repeat exam patient doing well at 7:25 AM. She did not want a more pain medication. She did want additional nausea medication so she will be given a dose of Zofran. Formal CAT scan read is pending. We are awaiting urine for the urinalysis. Patient be turned over to the a.m. physician for the CAT scan results, UA and final disposition. History & Record Review Discussion w/independent historian: Patient and Family Additional record(s) reviewed:: Prior inpatient record, Prior outpatient record, Prior ED visit, Prior labs and No prior records Lab Data Attestation: I reviewed the patient's lab results. Lab results narrative: CBC shows white count 1.4. H&H 13.5 and 41. Platelets 312. Electrolytes show potassium 3.4. Gap 7. BUN of 20 creatinine 0.7. Glucose 146. Labs: Laboratory Results - last 24 hr 06/26/23 06/26/23 06:25 07:49 WBC 11.4 H RBC 4.35 Hgb 13.5 Hct 41.0 MCV 94.3 MCH 31.0 MCHC 32.9 RDW Std Deviation 50.9 H RDW Coeff of Peggy 14.8 H Plt Count 312 MPV 9.8 Immature Gran % (Auto) 0.600 Neut % (Auto) 79.6 H Lymph % (Auto) 13.9 L Kingsbury % (Auto) 4.2 Eos % (Auto) 1.1 Baso % (Auto) 0.6 Absolute Neuts (auto) 9.1 H Absolute Lymphs (auto) 1.58 Nucleated RBC % 0 Sodium 139 Potassium 3.4 L Chloride 106 Carbon Dioxide 26.0 Anion Gap 7 BUN 20 H Creatinine 0.72 Estim Creat Clear Calc 49.16 Est GFR (MDRD) Af Amer 100 Est GFR (MDRD) Non-Af 83 BUN/Creatinine Ratio 27.9 H Glucose 146 H Calcium 8.9 Urine Color Yellow Urine Clarity Clear Urine pH 8.0 Ur Specific Radisson 1.010 Urine Protein Negative Urine Glucose (UA) 100 H Urine Ketones Negative Urine Occult Blood 150 H Urine Nitrite Negative Urine Bilirubin Negative Urine Urobilinogen Normal Ur Leukocyte Esterase 25 H Urine RBC 0-5 SEEN Urine WBC 5-10 SEEN Ur Squamous Epith Cells 0 SEEN Amorphous Sediment 1+ Urine Bacteria 0 SEEN Urine Mucus 0 SEEN Radiography Diagnostic Testing: Clinical Impression(s) from Imaging Studies Abdomen/Pelvis CT 06/26/23 06:26 IMPRESSION: 1. Mild left hydronephrosis due to 7 mm stone in the proximal left ureter. 2. Tiny nonobstructing stone in the right kidney. Electronically Signed: Fredis Baum MD at 8:43 EDT , <Dr. Wiley Barton, DO - Last Filed: 06/26/23 09:59> [facility] Lab Data Labs: Laboratory Results - last 24 hr 06/26/23 06/26/23 06:25 07:49 WBC 11.4 H RBC 4.35 Hgb 13.5 Hct 41.0 MCV 94.3 MCH 31.0 MCHC 32.9 RDW Std Deviation 50.9 H RDW Coeff of Peggy 14.8 H Plt Count 312 MPV 9.8 Immature Gran % (Auto) 0.600 Neut % (Auto) 79.6 H Lymph % (Auto) 13.9 L Kingsbury % (Auto) 4.2 Eos % (Auto) 1.1 Baso % (Auto) 0.6 Absolute Neuts (auto) 9.1 H Absolute Lymphs (auto) 1.58 Nucleated RBC % 0 Sodium 139 Potassium 3.4 L Chloride 106 Carbon Dioxide 26.0 Anion Gap 7 BUN 20 H Creatinine 0.72 Estim Creat Clear Calc 49.16 Est GFR (MDRD) Af Amer 100 Est GFR (MDRD) Non-Af 83 BUN/Creatinine Ratio 27.9 H Glucose 146 H Calcium 8.9 Urine Color Yellow Urine Clarity Clear Urine pH 8.0 Ur Specific Radisson 1.010 Urine Protein Negative Urine Glucose (UA) 100 H Urine Ketones Negative Urine Occult Blood 150 H Urine Nitrite Negative Urine Bilirubin Negative Urine Urobilinogen Normal Ur Leukocyte Esterase 25 H Urine RBC 0-5 SEEN Urine WBC 5-10 SEEN Ur Squamous Epith Cells 0 SEEN Amorphous Sediment 1+ Urine Bacteria 0 SEEN Urine Mucus 0 SEEN Radiography Diagnostic Testing: Clinical Impression(s) from Imaging Studies Abdomen/Pelvis CT 06/26/23 06:26 IMPRESSION: 1. Mild left hydronephrosis due to 7 mm stone in the proximal left ureter. 2. Tiny nonobstructing stone in the right kidney. Electronically Signed: Fredis Baum MD at 8:43 EDT , CT scan of the abdomen pelvis was seen. There is a 7 mm stone in the proximal left ureter. There is mild hydronephrosis on the left. This was interpreted by the radiologist was also independently reviewed by myself. Management Discussion w/another healthcare provider: Refrigeration Plant Operator (Dr. Santana) Treatment and Re-Evaluation :: Patient was feeling better on reevaluation. Case was discussed with Dr. Santana from urology. The plan was for the patient to go home with analgesics and antiemetics. After I discussed the plan with the patient, she felt that the pain was starting to return if she did not feel like she could tolerate the pain at home. Case was discussed with Dr. Santana again. She will admit the patient to her service. Patient understood and was agreeable with the plan. All questions were answered. Discharge Plan Triage Chief Complaint: Abd Pain ED Provider: Pablo Rosales Dx/Rx/DC Orders Clinical Impression: Acute left flank pain, Kidney stone on left side, Vomiting Instructions: ED Kidney Stone with Pain Prescriptions: No Action cholecalciferol (vitamin D3) 125 mcg (5,000 unit) capsule 125 mcg PO DAILY ascorbate calcium (vitamin C) 500 mg tablet 500 mg PO DAILY pravastatin 40 mg tablet 40 mg PO DAILY Qty: 90 3RF ferrous sulfate 325 mg (65 mg iron) tablet,delayed release (DR/EC) 325 mg PO DAILY omeprazole 20 mg capsule,delayed release(DR/EC) 20 mg PO DAILY tamsulosin 0.4 mg capsule PO Patient Comments: take 1 capsule by mouth at bedtime latanoprost 1 DROP bottle 1 drp EACH EYE QHS aspirin 81 MG tablet,chewable 162 mg PO DAILY@0800 timolol 0.5 % drops 1 drp RIGHT EYE DAILY Primary Care Provider: Lyla You NP Referrals: Tracie Santana MD [Med Staff - Active Staff] - As soon as possible Clifford Don MD [Med Staff - Active Staff] - 3-5 Days Lyla You NP, SR COMMUNITY MANAGER-C [Primary Care Provider] - Disposition Disposition: Acute Care Hospital [facility]
[2023-06-26] MEDS: Ondansetron 4 MG/2 ML Vial IV ×3 (06:31→15:37)
[2023-06-26] MEDS: Morphine 4 MG/ML Syringe IV ×2 (06:31→10:15)
[2023-06-26] MEDS: 0.9% Normal Saline (1000mL) 1,000 ML 1000 ML IV (06:31)
[2023-06-26 06:35] LABS: Absolute Lymphocyte Count 1.58 X10^3/uL (0.83-4.51); Absolute Neutrophil Count 9.1 X10^3/uL (2.0-7.7); Basophil# 0.07 X10^3/uL; Basophil% 0.6 % (0-1); Eosinophil# 0.13 X10^3/uL; Eosinophils% 1.1 % (0-5); Hemoglobin 13.5 g/dL (12.0-15.0); Lymphocyte # 1.58 X10^3/ul (0.83-4.51); Lymphocyte % 13.9 % (19-41); Mean Corp Hgb Conc 32.9 g/dL (32-36); Mean Corpuscular Volume 94.3 fL (81-99); Mean Platelet Vol. 9.8 fl (6.2-12.0); Monocyte# 0.48 X10^3/uL; Monocyte% 4.2 % (0-10); NRBC Flagged by Analyzer 0 % (0-5); Neutrophil # 9.06 X10^3/uL (2.7-7.7); Neutrophil % 79.6 % (47-70); Platelet Count 312 K/mm3 (150-450); RBC Distribution Width CV 14.8 % (11.6-14.6); RBC Distribution Width SD 50.9 fl (35.1-43.9); Red Blood Count 4.35 M/mm3 (4.2-5.4); White Blood Count 11.4 K/mm3 (4.4-11.0)
[2023-06-26 06:49] LABS: Anion Gap 7 (5-15); BUN 20 mg/dL (7-18); BUN/Creat Ratio 27.9 RATIO (10-20); Calcium,Total 8.9 mg/dL (8.5-10.1); Chloride 106 mmol/L (98-107); Creatinine, Serum 0.72 mg/dL (0.55-1.02); EST Glomerular Filtration Rate 83 mL/min (>60); Est Glom Filt Rate - Afr Amer 100 mL/min (>60); Estimated Creatinine Clearance 49.16 ml/min; Glucose 146 mg/dL (74-106); Potassium 3.4 mmol/L (3.5-5.1); Sodium Level 139 mmol/L (136-145)
[2023-06-26 08:01] LABS: Bacteria 0 SEEN /hpf (None Seen); Mucous, Urine 0 SEEN /hpf (<or=2+); Squamous Epithelial Cells - UA 0 SEEN /hpf (5-10)
[2023-06-26 08:07] LABS: Color, Urine Yellow (Yellow); Glucose, Dipstick 100 mg/dl (Normal); Ketone-Dipstick Negative (Negative); Leukocyte Esterase-Dipstick 25 /ul (Negative); Nitrite-Dipstick Negative (Negative); Occult Blood-Urine 150 /ul (Negative); Protein-Dipstick Negative (Negative); Urine Bilirubin Dipstick Negative (Negative); Urine Clarity Clear (Clear); Urine Urobilinogen Normal (Normal)
[2023-06-26 08:21] LABS: Amorphous Sediment 1+; Red Blood Cells-Urine 0-5 SEEN /hpf (0-5); White Blood Cells 5-10 SEEN /hpf (0-5)
[2023-06-26] MEDS: proMETHazine 25 MG/ML Syringe 6.25 MG IM (10:12)
[2023-06-26] MEDS: Ketorolac 15 MG/ML Vial IV ×2 (12:00→20:29)
[2023-06-26] MEDS: 0.9% Saline Lock 10 ML Syringe IV (12:00)
[2023-06-26] MEDS: Lactated Ringers 1,000 ML 100 ML IV ×2 (12:00→22:14)
[2023-06-26] MEDS: Morphine 2 MG/ML Syringe IV (15:26)
[2023-06-26] MEDS: proMETHazine 25 MG/ML Syringe 12.5 MG IM (17:41)
[2023-06-26] MEDS: Morphine 4 MG/ML Syringe 3 MG IV (17:41)
[2023-06-26] MEDS: 0.9% Normal Saline (1000mL) 1,000 ML 999 ML IV (22:30)
--- NOTE | 2023-06-26 23:00 | NURSING ---
2210 Pt resting in bed, awake and alert. Pain has improved since IV toradol. Vital signs obtained. BP 82/43, HR 120, temp 100.1 oral, RR 18, 90% on 2L. Pt denies dizziness/lightheadedness/nausea. Oxygen therapy increased to 4L, now satting 92%. Extra blankets removed, temperature turned down. Dr. Santana called and notified. See orders. Plan is to take pt to surgery tonight. Pt and family notified. Sepsis alert triggered on sepsis screen. Blood cultures ordered, fluid resuscitation started. 2230 1L normal saline bolus running. 2240 preop EKG obtained, consent signed by pt, CHG bath completed.
--- NOTE | 2023-06-26 23:30 | HP.PCM_ITS ---
HPI - General General Date of Admission: 06/26/23 Chief Complaint: left flank pain with nausea and vomiting HPI Narrative SAIDA BARTON, is a 83 F who presented to the ER with left abdominal pain nausea and vomiting at home. She did not have fever, but did not take her temperature at home. She was found to have a left ureteral stone 7mm in size. She failed trial of pain management with oral medications and I admitted her to the floor for pain control. She then developed significant hypotension, tachycardia and the decision was made to place a ureteral stent for renal drainage. Informed consent was obtained. [facility] Medical History (Updated 06/26/23 @ 23:[address] Tracie Santana MD) GERD (gastroesophageal reflux disease) Kidney stones Left ureteral stone Mixed hyperlipidemia Osteoarthritis Premature ventricular contraction Home Medications aspirin 81 mg chewable tablet 162 mg PO DAILY@0800 heart health 12/29/15 [History Last Taken 06/25/23] latanoprost 0.005 % eye drops 1 drp EACH EYE QHS eyes 12/29/15 [History Last Taken 06/24/23] ascorbate calcium (vitamin C) 500 mg tablet 500 mg PO DAILY vitamin 05/27/20 [History Last Taken Unknown] pravastatin 40 mg tablet 40 mg PO DAILY #90 tabs 07/15/20 [Rx Last Taken 06/25/23] timolol 0.5 % eye drops 1 drp RIGHT EYE DAILY eye health 07/15/20 [History Last Taken 06/25/23] cholecalciferol (vitamin D3) 125 mcg (5,000 unit) capsule 125 mcg PO DAILY 02/03/21 [History Last Taken 06/25/23] ferrous sulfate 325 mg (65 mg iron) tablet,delayed release 325 mg PO DAILY 04/02/23 [History Last Taken 06/25/23] omeprazole 20 mg capsule,delayed release 20 mg PO DAILY 04/02/23 [History Last Taken 06/25/23] Allergy/AdvReac Type Severity Reaction Status Date / Time Sulfa (Sulfonamide Allergy Rash Verified 04/02/23 08:24 Antibiotics) butorphanol [From Stadol] AdvReac Vomiting Verified 04/02/23 08:24 meperidine [From Demerol] AdvReac Vomiting Verified 04/02/23 08:24 Family History Mother Cancer Cervical cancer Surgical History Cataract extraction status of right eye Social History household members: spouse Smoking Status: Never smoker alcohol intake: current details: occasional substance use type: does not use caffeine: No ROS Eyes Eyes: Reports systems reviewed and no addt'l complaints, except as documented ENT HEENT: Reports systems reviewed and no addt'l complaints, except as documented Cardiovascular Cardiovascular: Reports systems reviewed and no addt'l complaints, except as documented Respiratory/Chest Respiratory/Chest: Reports systems reviewed and no addt'l complaints, except as documented Gastrointestinal Gastrointestinal: Reports systems reviewed and no addt'l complaints, except as documented Genitourinary Genitourinary: Reports flank pain and low back pain Musculoskeletal Musculoskeletal: Reports systems reviewed and no addt'l complaints, except as documented Integumentary Integumentary: Reports systems reviewed and no addt'l complaints, except as documented Neurologic Neurologic: Reports systems reviewed and no addt'l complaints, except as documented Psychiatric Psychiatric: Reports systems reviewed and no addt'l complaints, except as documented Vital Signs Vital Signs Vital Signs: 06/26/23 06:13 06/26/23 06:12 06/26/23 06:59 Temperature 96.4 F L 96.4 F L Temperature Source Temporal Temporal Pulse Rate 70 71 Respiratory Rate 16 16 Blood Pressure 182/86 H 184/82 H Blood Pressure Mean 118 116 Blood Pressure Source Blood Pressure Position Blood Pressure Location Pulse Ox 98 98 87 Oxygen Delivery Method Room Air Room Air Room Air Oxygen Flow Rate (L/min) 06/26/23 06:59 06/26/23 07:15 06/26/23 08:00 Temperature 97.2 F L 97.2 F L Temperature Source Oral Oral Pulse Rate 72 76 Respiratory Rate 16 15 Blood Pressure 158/77 H 171/75 H Blood Pressure Mean 104 107 Blood Pressure Source Blood Pressure Position Blood Pressure Location Pulse Ox 94 97 95 Oxygen Delivery Method Nasal Cannula Oxygen Flow Rate (L/min) 2 06/26/23 09:00 06/26/23 10:00 06/26/23 10:10 Temperature 97.2 F L 97.6 F L 97.6 F L Temperature Source Oral Oral Pulse Rate 73 84 79 Respiratory Rate 16 16 17 Blood Pressure 148/79 H 154/63 H 149/81 H Blood Pressure Mean 102 93 103 Blood Pressure Source Blood Pressure Position Blood Pressure Location Pulse Ox 95 96 95 Oxygen Delivery Method Oxygen Flow Rate (L/min) 06/26/23 10:50 06/26/23 12:00 06/26/23 14:35 Temperature 97.8 F 98.6 F Temperature Source Temporal Oral Pulse Rate 68 85 Respiratory Rate 18 16 Blood Pressure 179/72 H 124/87 H Blood Pressure Mean 107 99 Blood Pressure Source Monitor Monitor Blood Pressure Position Semi-Fowlers Semi-Fowlers Blood Pressure Location Left Arm Right Forearm Pulse Ox 98 94 97 Oxygen Delivery Method Nasal Cannula Nasal Cannula Nasal Cannula Oxygen Flow Rate (L/min) 2 2 2 06/26/23 22:13 Temperature 100.1 F H Temperature Source Oral Pulse Rate 120 H Respiratory Rate 18 Blood Pressure 82/43 L Blood Pressure Mean 56 Blood Pressure Source Blood Pressure Position Blood Pressure Location Pulse Ox 92 Oxygen Delivery Method Nasal Cannula Oxygen Flow Rate (L/min) 4 Weight Weight: 72.121 kg Body Mass Index (BMI) 31.0 Physical Exam Const alert, oriented x3 and no apparent distress General Appearance: cooperative, comfortable, well kempt and well developed HEENT normocephalic, head/scalp atraumatic, hearing grossly normal bilaterally, external ears normal, external nose normal and moist oral mucous membranes Eyes General Eye: normal appearance of both eyes Neck supple General: trachea midline Chest inspection of chest normal Resp normal respiratory effort, normal air movement and no retractions Cardio Cardio Narrative: tachycardic GI soft to palpation and non-tender Skin no rashes or lesions noted, no wounds, skin turgor normal, no jaundice, no petechiae and no mottling Neuro oriented x3, CN's II-XII intact bilaterally and moves all extremities Psych mental status grossly normal, thought process normal and cooperative Results Lab / Micro Data 06/26/23 06:25 06/26/23 06:25 Labs: Laboratory Results - last 24 hr 06/26/23 06:25: WBC 11.4 H, RBC 4.35, Hgb 13.5, Hct 41.0, MCV 94.3, MCH 31.0, MCHC 32.9, RDW Std Deviation 50.9 H, RDW Coeff of Peggy 14.8 H, Plt Count 312, MPV 9.8, Immature Gran % (Auto) 0.600, Neut % (Auto) 79.6 H, Lymph % (Auto) 13.9 L, [place] % (Auto) 4.2, Eos % (Auto) 1.1, Baso % (Auto) 0.6, Absolute Neuts (auto) 9.1 H, Absolute Lymphs (auto) 1.58, Nucleated RBC % 0, Sodium 139, Potassium 3.4 L, Chloride 106, Carbon Dioxide 26.0, Anion Gap 7, BUN 20 H, Creatinine 0.72, Estim Creat Clear Calc 49.16, Est GFR (MDRD) Af Amer 100, Est GFR (MDRD) Non-Af 83, BUN/Creatinine Ratio 27.9 H, Glucose 146 H, Calcium 8.9 06/26/23 07:49: Urine Color Yellow, Urine Clarity Clear, Urine pH 8.0, Ur Specific [place] 1.010, Urine Protein Negative, Urine Glucose (UA) 100 H, Urine Ketones Negative, Urine Occult Blood 150 H, Urine Nitrite Negative, Urine Bilirubin Negative, Urine Urobilinogen Normal, Ur Leukocyte Esterase 25 H, Urine RBC 0-5 SEEN, Urine WBC 5-10 SEEN, Ur Squamous Epith Cells 0 SEEN, Amorphous Sediment 1+, Urine Bacteria 0 SEEN, Urine Mucus 0 SEEN Imaging Radiology Impression Abdomen/Pelvis CT 06/26/23 06:26 IMPRESSION: 1. Mild left hydronephrosis due to 7 mm stone in the proximal left ureter. 2. Tiny nonobstructing stone in the right kidney. Electronically Signed: Fredis Baum MD at 8:43 EDT , Assessment & Plan Assessment/Plan (1) Vomiting: (2) Acute left flank pain: (3) Left ureteral stone: PLAN: Plan cystoscopy with left ureteral stent antibiotics fluid management supportive care
--- NOTE | 2023-06-26 23:37 | NURSING ---
2300 report given to surgery nurse. 2315 Dr Santana at bedside with pt and family. 2320 pt transported to surgery.
[2023-06-27] VITALS (20 sets, daily range): BP systolic 89–130; BP diastolic 41–72; PULSE 77–111; RESP 14–20; TEMP 36.7–38.3; O2SAT 88–98
--- NOTE | 2023-06-27 00:25 | OP.PCM_ITS ---
Report of Operation Date of Procedure: 06/27/23 Pre-Operative Diagnosis: Left obstructing ureteral stone Post-Operative Diagnosis: Same Surgery/Procedure Performed:: Cystoscopy, left ureteral stent insertion Surgeon: Tracie Santana Type of Anesthesia: MAC Specimen's removed: None Description of Procedure: The patient is a 83-year-old female who was admitted earlier today for pain management secondary to a left proximal ureteral calculus. She developed tachycardia and hypotension on the floor and the decision was made to take her to the operating room for left ureteral stent insertion. Informed consent was obtained. The patient was taken to the operating room and placed on the operating room table. Anesthesia monitored the head, neck, airway, IV access and vital signs throughout the case. Once anesthesia was appropriately administered, the patient was placed into dorsolithotomy position was prepped and draped in usual sterile fashion. The cystoscope was inserted through the urethra under direct visualization into the urinary bladder. The bladder mucosa revealed no evidence of mass, erythema, ulceration or foreign body. The left ureteral orifice was intubated with an 0.035 Glidewire which advanced into the renal pelvis beyond the stone. A 6 Erit[place]an by 20 cm JJ stent was passed over the wire with positioning within the renal pelvis past the stone as well as the urinary bladder. A good debris-filled urine jet was observed from the ureteral stent. The cystoscope was removed and a 16 Eritrean Gomez catheter was inserted to straight drain and the balloon was inflated with 10 cc of sterile water. The patient was awakened and taken to the recovery room in good condition. There were no complications during this procedure. Grafts/Implants Used: 6 x 20 cm JJ stent, 16 Eritrean Gomez catheter Complications None Admit VTE Documentation VTE Present on Admission: No VTE Mechan Device Prophylaxis: None VTE Pharm Prophylaxis ordered?: Yes
[2023-06-27] MEDS: Lactated Ringers 1,000 ML 125 ML IV ×2 (01:13→08:30)
[2023-06-27] MEDS: Ketorolac 15 MG/ML Vial IV (05:45)
[2023-06-27] MEDS: Cefazolin 1 GM/50 ML BAG IV (05:45)
--- NOTE | 2023-06-27 06:00 | EKG12_ITS ---
Test Reason : PREOP Blood Pressure : / mmHG Vent. Rate : 121 BPM Atrial Rate : 121 BPM P-R Int : 120 ms QRS Dur : 082 ms QT Int : 418 ms P-R-T Axes : 004 -18 012 degrees QTc Int : 593 ms Sinus tachycardia Minimal voltage criteria for LVH, may be normal variant ( R in aVL ) Nonspecific ST and T wave abnormality Abnormal ECG Confirmed by Nirav Rose ([id number]), editor producer EMILIE HENDERSON ([id number]) on 06/28/2023 1:20:17 PM Referred By: ZANE Confirmed By:Nirav Rose
[2023-06-27 07:20] LABS: Absolute Lymphocyte Count 0.83 X10^3/uL (0.83-4.51); Absolute Neutrophil Count 21.2 X10^3/uL (2.0-7.7); Basophil# 0.07 X10^3/uL; Basophil% 0.3 % (0-1); Eosinophil# 0.29 X10^3/uL; Eosinophils% 1.2 % (0-5); Hematocrit 30.4 % (37-47); Hemoglobin 10.1 g/dL (12.0-15.0); Lymphocyte # 0.83 X10^3/ul (0.83-4.51); Lymphocyte % 3.5 % (19-41); Mean Corp Hgb Conc 33.2 g/dL (32-36); Mean Corpuscular Hgb 31.6 pg (27.0-32.0); Mean Platelet Vol. 10.4 fl (6.2-12.0); Monocyte# 0.86 X10^3/uL; Monocyte% 3.7 % (0-10); NRBC Flagged by Analyzer 0 % (0-5); Neutrophil # 21.18 X10^3/uL (2.7-7.7); Neutrophil % 90.1 % (47-70); POSITIVE DIFFERENTIAL YES; POSITIVE MORPHOLOGY YES; Platelet Count 186 K/mm3 (150-450); RBC Distribution Width CV 15.5 % (11.6-14.6); RBC Distribution Width SD 53.7 fl (35.1-43.9); White Blood Count 23.5 K/mm3 (4.4-11.0)
[2023-06-27 07:34] LABS: Differential Indicated SCAN CRITERIA MET
[2023-06-27 08:13] LABS: Anion Gap 7 (5-15); BUN 24 mg/dL (7-18); BUN/Creat Ratio 25.2 RATIO (10-20); Calcium,Total 6.8 mg/dL (8.5-10.1); Chloride 109 mmol/L (98-107); Creatinine, Serum 0.95 mg/dL (0.55-1.02); EST Glomerular Filtration Rate 60 mL/min (>60); Est Glom Filt Rate - Afr Amer 73 mL/min (>60); Estimated Creatinine Clearance 41.17 ml/min; Glucose 117 mg/dL (74-106); Potassium 3.4 mmol/L (3.5-5.1); Sodium Level 138 mmol/L (136-145)
[2023-06-27] MEDS: 0.9% Normal Saline (500mL Bag) 500 ML 999 ML IV (08:28)
[2023-06-27] MEDS: Pravastatin 40 MG Tablet PO (08:31)
[2023-06-27] MEDS: Aspirin 81 MG TAB.CHEW 162 MG PO (08:31)
[2023-06-27] MEDS: Pantoprazole Sodium 20 MG Tablet PO (08:31)
[2023-06-27] MEDS: Ferrous Sulfate 325 MG Tablet PO (08:31)
[2023-06-27] MEDS: Timolol 0.5% 5ML OPTH.BTL 1 DRP RIGHT EYE (08:31)
[2023-06-27] MEDS: Enoxaparin 40 MG/0.4 ML Syringe SC (08:32)
[2023-06-27] MEDS: Ciprofloxacin 400 MG/200 ML BAG 200 MG IV (08:40)
--- NOTE | 2023-06-27 09:19 | PN.URO_ITS ---
Subjective Subjective She is resting comfortably in bed. She has had resolution of her pain, nausea and vomiting. She is not lightheaded, dizzy or symptomatic from her soft blood pressures at this time. Her appetite is down but she is taking fluids without difficulty. She is asking to get out of bed today. Objective Data Objective Data Vital Signs: Vital Signs Temp Pulse Resp BP Pulse Ox O2 Del Method O2 Flow Rate 98.1 F 87 18 89/41 L 97 Nasal Cannula 4 06/27/23 08:03 06/27/23 08:03 06/27/23 08:03 06/27/23 08:05 06/27/23 08:03 06/27/23 08:03 06/27/23 08:03 Oxygen Flow Rate (L/min) 4 Oxygen Delivery Method Nasal Cannula Weight: 72.121 kg Body Mass Index (BMI) 31.0 Intake & Output: Intake and Output for Last 24 Hours 06/25/23 06/26/23 06/27/23 23:59 23:59 23:59 Intake Total 3026.67 / 3026.67 1164.58 / 1164.58 Output Total 475 / 475 660 / 660 Balance 2551.67 / 2551.67 504.58 / 504.58 Lab / Micro Data 06/27/23 06:28 06/27/23 06:28 Labs: Laboratory Results - last 24 hr 06/27/23 06:28: WBC 23.5 H, RBC 3.20 L, Hgb 10.1 L, Hct 30.4 L, MCV 95.0, MCH 31.6, MCHC 33.2, RDW Std Deviation 53.7 H, RDW Coeff of Peggy 15.5 H, Plt Count 186, MPV 10.4, Immature Gran % (Auto) 1.200 H, Neut % (Auto) 90.1 H, Lymph % (Auto) 3.5 L, [place] % (Auto) 3.7, Eos % (Auto) 1.2, Baso % (Auto) 0.3, Absolute Neuts (auto) 21.2 H, Absolute Lymphs (auto) 0.83, Nucleated RBC % 0, Differential Comment , Sodium 138, Potassium 3.4 L, Chloride 109 H, Carbon Dioxide 22.0, Anion Gap 7, BUN 24 H, Creatinine 0.95, Estim Creat Clear Calc 41.17, Est GFR (MDRD) Af Amer 73, Est GFR (MDRD) Non-Af 60, BUN/Creatinine Ratio 25.2 H, Glucose 117 H, Calcium 6.8 L Micro: Microbiology 06/26/23 23:10 Blood Culture (Wb) - Anticubital Right Blood Culture - Preliminary Physical Exam Const alert, oriented x3 and no apparent distress HEENT normocephalic, head/scalp atraumatic, hearing grossly normal bilaterally, external ears normal and moist oral mucous membranes Eyes General Eye: normal appearance of both eyes Neck supple General: normal visual inspection Lymph Lymphatic: no lymphedema noted Chest inspection of chest normal Resp normal respiratory effort, normal air movement and no retractions Cardio regular rate GI soft to palpation Narrative: Gomez is draining clear yellow urine Extremity Extremity Narrative: SCDs in place. Skin no rashes or lesions noted, no wounds, skin turgor normal, no jaundice, no petechiae and no mottling Neuro oriented x3, CN's II-XII intact bilaterally and moves all extremities Psych mental status grossly normal and thought process normal Assessment & Plan Assessment/Plan (1) Left ureteral stone: (2) Sepsis associated hypotension: (3) Urinary tract infection: PLAN: Plan Await culture sensitivities Broaden antibiotic coverage to Zosyn Continue supportive care Gomez to stay in today Out of bed as blood pressure improves
[2023-06-27] MEDS: 0.9% Normal Saline (250mL Bag) 250 ML 15 ML IV (09:41)
[2023-06-27] MEDS: Piperacil/Tazobactam 3.375 GM in 0.9% Normal Saline (50mL MB+) 50 ML IV ×3 (10:03→21:17)
[2023-06-27] MEDS: 0.9% Normal Saline (1000mL) 1,000 ML 125 ML IV ×2 (10:03→18:02)
[2023-06-27] MEDS: Famotidine 20 MG Tablet PO (12:19)
[2023-06-27] MEDS: Acetaminophen 325 MG Tablet 650 MG PO (12:19)
--- NOTE | 2023-06-27 14:31 | NURSING ---
per Courtney in pharmacy, wait until closer to 1600 to hang 1400 dose of zosyn since stat dose just finished infusing
[2023-06-27] MEDS: Latanoprost 0.005% 1 Bottle 1 DRP EACH EYE (21:41)
[2023-06-28] VITALS (9 sets, daily range): BP systolic 109–142; BP diastolic 54–73; PULSE 70–88; RESP 15–18; TEMP 36.6–37.9; O2SAT 84–97
[2023-06-28] MEDS: Acetaminophen 325 MG Tablet 650 MG PO ×2 (02:01→16:49)
[2023-06-28] MEDS: 0.9% Normal Saline (1000mL) 1,000 ML 125 ML IV ×3 (02:03→18:20)
[2023-06-28] MEDS: Piperacil/Tazobactam 3.375 GM in 0.9% Normal Saline (50mL MB+) 50 ML IV ×3 (05:21→22:24)
[2023-06-28 06:24] LABS: Absolute Lymphocyte Count 0.87 X10^3/uL (0.83-4.51); Basophil# 0.03 X10^3/uL; Basophil% 0.3 % (0-1); Eosinophil# 0.08 X10^3/uL; Eosinophils% 0.9 % (0-5); Hematocrit 30.1 % (37-47); Hemoglobin 9.8 g/dL (12.0-15.0); Lymphocyte # 0.87 X10^3/ul (0.83-4.51); Lymphocyte % 9.3 % (19-41); Mean Corp Hgb Conc 32.6 g/dL (32-36); Mean Corpuscular Hgb 31.5 pg (27.0-32.0); Mean Corpuscular Volume 96.8 fL (81-99); Mean Platelet Vol. 10.4 fl (6.2-12.0); Monocyte# 0.29 X10^3/uL; Monocyte% 3.1 % (0-10); NRBC Flagged by Analyzer 0 % (0-5); Neutrophil # 7.97 X10^3/uL (2.7-7.7); Neutrophil % 85.3 % (47-70); Platelet Count 135 K/mm3 (150-450); RBC Distribution Width CV 15.9 % (11.6-14.6); RBC Distribution Width SD 56.4 fl (35.1-43.9); Red Blood Count 3.11 M/mm3 (4.2-5.4); White Blood Count 9.3 K/mm3 (4.4-11.0)
[2023-06-28 06:43] LABS: Anion Gap 3 (5-15); BUN 12 mg/dL (7-18); Calcium,Total 7.3 mg/dL (8.5-10.1); Chloride 113 mmol/L (98-107); Creatinine, Serum 0.57 mg/dL (0.55-1.02); EST Glomerular Filtration Rate 108 mL/min (>60); Est Glom Filt Rate - Afr Amer 131 mL/min (>60); Estimated Creatinine Clearance 48.89 ml/min; Glucose 99 mg/dL (74-106); Potassium 2.9 mmol/L (3.5-5.1); Sodium Level 142 mmol/L (136-145)
--- NOTE | 2023-06-28 08:16 | NURSING ---
This RN is aware of Vitals taken by Osvaldo REY senior health consultant at 0650 this morning.
[2023-06-28] MEDS: Ferrous Sulfate 325 MG Tablet PO (08:21)
[2023-06-28] MEDS: Pantoprazole Sodium 20 MG Tablet PO (08:21)
[2023-06-28] MEDS: Pravastatin 40 MG Tablet PO (08:22)
[2023-06-28] MEDS: Enoxaparin 40 MG/0.4 ML Syringe SC (08:22)
[2023-06-28] MEDS: Aspirin 81 MG TAB.CHEW 162 MG PO (08:22)
[2023-06-28] MEDS: Timolol 0.5% 5ML OPTH.BTL 1 DRP RIGHT EYE (08:25)
--- NOTE | 2023-06-28 09:26 | CASEMGMT ---
KRISSY PORTER Assessment: Face to Face with pt for initial transition planning/care coordination assessment. KRISSY PORTER introduced self and role at [facility], pt voices understanding and consents to assessment. Pt is A&O x4 and answers all questions appropriately at this time. Pt sitting up in bed in no distress with at bedside. Care providers, pharmacy, and demographics verified/updated. Admitting Dx: L proximal ureteral calculi PCP:Lyla You NP Specialists:Esther, uro; [facility]G, cardio Preferred [facility]acy: [facility] Insurance: [facility] Prescription Benefit: yes LNOK: Vinod Harvey, Living Arrangements: Pt lives with in a single story home with 2 steps to enter. Pt reports she is I in ADL's and denies concerns at home. Transportation: Pt drives self and denies concerns with transportation. DME:Denies HHC/SNF: Denies hx of Pt states no concerns with going home at time of dc. Pt reports she has multiple family members close to assist if needed. Pt states no further concerns/needs. CM to follow. Advised pt to ask CM if any further question/concerns/needs arise, voices understanding. Pt Goal: Home Plan: Home with family support Sue REY CM
--- NOTE | 2023-06-28 13:15 | EX.PCM.DISCH ---
Discharge Instructions Diet Discharge Diet: No restrictions Activity Discharge Activity: Return to Normal Activity Dressing / Incision Call your doctor if you observe: Fever of 101 or Higher, Inability to urinate and Inability to have a bowel movement Follow Up Care Please Follow Up With: Tracie Santana MD When: The office will call her to make arrangements for surgery Test Results: Test results from this visit will be discussed in further detail at your follow-up appointment, if applicable. Discharge Plan Admission Admit Date/Time: 06/27/23 11:10 Attending Provider: Tracie Santana Primary Care Provider: Lyal You NP Instructions Patient Instructions: ED Kidney Stone with Pain Discharge Orders/Prescriptions Prescriptions: New ciprofloxacin HCl [ciprofloxacin HCl] 500 mg tablet 500 mg PO BID Qty: 14 0RF oxycodone-acetaminophen [Percocet] 5-325 mg tablet 1 tab PO Q8H PRN (Reason: pain) 3 Days Qty: 10 0RF phenazopyridine [phenazopyridine] 100 mg tablet 100 mg PO TID Qty: 30 0RF Continued cholecalciferol (vitamin D3) 125 mcg (5,000 unit) capsule 125 mcg PO DAILY ascorbate calcium (vitamin C) 500 mg tablet 500 mg PO DAILY pravastatin 40 mg tablet 40 mg PO DAILY Qty: 90 3RF ferrous sulfate 325 mg (65 mg iron) tablet,delayed release (DR/EC) 325 mg PO DAILY omeprazole 20 mg capsule,delayed release(DR/EC) 20 mg PO DAILY latanoprost 1 DROP bottle 1 drp EACH EYE QHS aspirin 81 MG tablet,chewable 162 mg PO DAILY@0800 timolol 0.5 % drops 1 drp RIGHT EYE DAILY Referrals / Follow Up: Tracie Santana MD [Med Staff - Active Staff] - As soon as possible Clifford Don MD [Med Staff - Active Staff] - 3-5 Days (Do not follow up with .) Lyla You NP, [employer] [Primary Care Provider] - Disposition Disposition (needs filled in before D/C Order can be placed): Home, Self Care
[2023-06-28] MEDS: Potassium Chloride Oral Tablet 20 MEQ 40 MEQ PO (13:46)
--- NOTE | 2023-06-28 14:49 | PHA.DC.MC.R ---
Pharmacy [facility] Pharm[facility] Service has performed discharge medication reconciliation and counseling for this patient. 1. CIPROFLOXACIN 500MG PO BID X 7 DAYS 2. OXYCODONE/ACETAMINOPHEN 5/325MG 1T PO Q8H PRN PAIN 3. PHENAZOPYRIDINE 100MG PO TID The patient's discharge medication list was reviewed for discrepancies and discrepancies were resolved. The patient was counseled on the following discharge medications and changes in medications for homegoing were reviewed. The Reason for Use, instructions for use, and potential side effects were reviewed for all new medications. The patient's questions regarding all of their medications were answered. The patient was able to verbally demonstrate an understanding of their discharge medications. Medications at Discharge Home Medications aspirin 81 mg chewable tablet 162 mg PO DAILY@0800 heart health 12/29/15 latanoprost 0.005 % eye drops 1 drp EACH EYE QHS eyes 12/29/15 ascorbate calcium (vitamin C) 500 mg tablet 500 mg PO DAILY vitamin 05/27/20 pravastatin 40 mg tablet 40 mg PO DAILY #90 tabs 07/15/20 timolol 0.5 % eye drops 1 drp RIGHT EYE DAILY eye health 07/15/20 cholecalciferol (vitamin D3) 125 mcg (5,000 unit) capsule 125 mcg PO DAILY 02/03/21 ferrous sulfate 325 mg (65 mg iron) tablet,delayed release 325 mg PO DAILY 04/02/23 omeprazole 20 mg capsule,delayed release 20 mg PO DAILY 04/02/23 ciprofloxacin HCl 500 mg tablet 500 mg PO BID #14 TABLETS 06/28/23 oxycodone-acetaminophen 5 mg-325 mg tablet (Percocet) 1 tab PO Q8H PRN pain 3 days #10 tabs 06/28/23 phenazopyridine 100 mg tablet 100 mg PO TID #30 TABLETS 06/28/23
[2023-06-28] MEDS: Ondansetron 4 MG/2 ML Vial IV (15:58)
--- NOTE | 2023-06-28 16:00 | CHAPLAIN ---
Type of Pastoral Visit ___ Initial Visit ___ Follow-up Visit ___ On-call Visit ___ General Patient Visit ___ Spiritual Assessment ___ Family Conference ___ Bereavement ___ Rapid Response ___ Code Blue ___ Other (describe below) Pastoral Care Referral From ___ Patient ___ Family ___ Nurse ___ Physician ___ Excel Expert ___ Manager Landscape ___ Other (describe below) Sacrament/Intervention ___ Active listening ___ Anointing ___ Scientologist ___ Bereavement ___ Communion ___ Sol exploration ___ ___ Life review ___ Prayer ___ Reconciliation ___ Sacrament of Sick ___ Supportive presence ___ Wedding ___ Other (describe below) Pastoral Comments patient was unavailable at time of attempted visit
--- NOTE | 2023-06-28 16:17 | NURSING ---
Temp of 100.2, spo2 88% on RA and pt stated she just doest feel good per Laith RN. Dr. Garcia paged and informed her of this information. Order to CANCEL discharge.
--- NOTE | 2023-06-28 18:16 | PCM.PN.HOSP ---
Subjective Subjective 83-year-old female presented to the hospital with left flank pain due to a left ureteral stone is around 7 mm in size. It does appear that she became septic and had to be taken to the operating room fairly urgently for cystoscopy and left ureteral stent placement. Her urine cultures and blood cultures are positive and pending finalization and sensitivities. Initially she was to be discharged today however she not feel well after she took her oral potassium and developed some nausea and then her oxygen requirement went from 1 L to 2 L and she developed a slight fever. Her leukocytosis has completely resolved and she states that she feels a little bit better this afternoon. Objective Data Objective Data Vital Signs: Vital Signs Temp Pulse Resp BP Pulse Ox O2 Del Method O2 Flow Rate 99.5 F H 88 18 142/73 H 93 Nasal Cannula 2 06/28/23 18:06 06/28/23 16:02 06/28/23 16:02 06/28/23 16:02 06/28/23 16:02 06/28/23 16:09 06/28/23 16:09 Oxygen Flow Rate (L/min) 2 Oxygen Delivery Method Nasal Cannula Weight: 159 lb Body Mass Index (BMI) 31.0 Intake & Output: Intake and Output for Last 24 Hours 06/27/23 06/28/23 06/29/23 03:59 03:59 03:59 Intake Total 3210.00 / 3210.00 4112.50 / 4112.50 1100 / 1100 Output Total 725 / 725 2210 / 2210 300 / 300 Balance 2485.00 / 2485.00 1902.50 / 1902.50 800 / 800 Lab / Micro Data 06/28/23 05:42 06/28/23 05:42 Labs: Laboratory Results - last 24 hr 06/28/23 05:42: WBC 9.3, RBC 3.11 L, Hgb 9.8 L, Hct 30.1 L, MCV 96.8, MCH 31.5, MCHC 32.6, RDW Std Deviation 56.4 H, RDW Coeff of Peggy 15.9 H, Plt Count 135 L, MPV 10.4, Immature Gran % (Auto) 1.100 H, Neut % (Auto) 85.3 H, Lymph % (Auto) 9.3 L, [place] % (Auto) 3.1, Eos % (Auto) 0.9, Baso % (Auto) 0.3, Absolute Neuts (auto) 8.0 H, Absolute Lymphs (auto) 0.87, Nucleated RBC % 0, Sodium 142, Potassium 2.9 L, Chloride 113 H, Carbon Dioxide 26.0, Anion Gap 3 L, BUN 12, Creatinine 0.57, Estim Creat Clear Calc 48.89, Est GFR (MDRD) Af Amer 131, Est GFR (MDRD) Non-Af 108, BUN/Creatinine Ratio 21.0 H, Glucose 99, Calcium 7.3 L Micro: Microbiology 06/26/23 07:49 Urine, Clean Catch Urine Culture - Preliminary Gram negative shahbaz 06/26/23 23:10 Blood Culture (Wb) - Anticubital Right Blood Culture - Preliminary Gram negative shahbaz 06/26/23 06:28 Blood Culture (Wb) - Anticubital Right Blood Culture - Preliminary Gram negative shahbaz Physical Exam Narrative General: Alert, Oriented x3, Cooperative, No apparent distress HEENT: Atraumatic, PERRLA, EOMI, Normocephalic Oral: Moist Mucosa Neck: Supple, No JVD Lungs: Diminished right more than left, Normal air movement, No rhonchi, No wheeze, No rales, left basilar crackles greater than right Cardiovascular: Regular rate, Regular Rhythm, Normal S1, Normal S2, No murmurs Abdomen: Soft, Non Tender, Non-Distended, No Hepato-splenomegaly Extremities: No edema, Capillary Refill Less than 3 Seconds Skin: No rashes, No breakdown Musculoskeletal: No Tenderness to Palpation of Joints or Extremities Neurological: No focal neurological deficits, Motor Exam 5/5 strength throughout, Sensory exam intact to light touch and pain Psych/Mental Status: Normal Affect, Appropriate Assessment & Plan Assessment/Plan (1) Urinary tract infection: (2) Left ureteral stone: PLAN: Plan 1. UTI in the setting of a left ureteral stone/hypoxia ? Currently awaiting cultures, will continue with Zosyn ? She does not meet criteria for sepsis based on her insurance she was given IV fluids because of hypotension due to her infection ? Continue with incentive spirometry, will obtain an ambulatory pulse ox given her hypoxia which could be due to atelectasis especially in the setting of a fever and the crackles ? Will discontinue IV fluids as she is approximately 5 L positive ? If no improvement with ambulation incentive spirometry may need chest x-ray in the morning 2. HLD ? Stable Continue with pravastatin 3. Iron deficiency anemia ? Stable ? Continue with her home medications 4. GERD ? Stable ? Continue PPI 5. Glaucoma ? Stable ? Continue with her home eyedrops DVT: SCDs Charges/Coding Visit Charges Office Visits / Consults: [id number] OV L3 New 30min
[2023-06-28 19:15] LABS: Phosphorus 2.2 mg/dL (2.5-4.9)
[2023-06-28] MEDS: Latanoprost 0.005% 1 Bottle 1 DRP EACH EYE (20:37)
[2023-06-28] MEDS: Furosemide 20 MG/2 ML VIAL IV (21:05)
[2023-06-29 01:42] VITALS: BP 142/68; PULSE 78; RESP 15; TEMP 37.3; O2SAT 95
[2023-06-29 05:00] VITALS: RESP 15
[2023-06-29 05:29] VITALS: BMI 31.2
[2023-06-29] MEDS: Piperacil/Tazobactam 3.375 GM in 0.9% Normal Saline (50mL MB+) 50 ML IV (06:31)
--- NOTE | 2023-06-29 07:13 | PCM.PN.HOSP ---
Reason for Visit Reason for Visit: Diagnoses Sepsis, unspecified organism (06/27/23) Hypotension, unspecified (06/27/23) Calculus of ureter (06/27/23) Urinary tract infection, site not specified (06/27/23) Unspecified abdominal pain (06/27/23) Vomiting, unspecified (06/27/23) Objective Data Objective Data Vital Signs: Vital Signs Temp Pulse Resp BP Pulse Ox O2 Del Method O2 Flow Rate 99.1 F 78 15 142/68 H 95 Nasal Cannula 2 06/29/23 01:42 06/29/23 01:42 06/29/23 05:00 06/29/23 01:42 06/29/23 01:42 06/29/23 05:00 06/29/23 05:00 Oxygen Flow Rate (L/min) [ 2 AMBULATING with Oxygen #1] Oxygen Flow Rate (L/min) [At 2 REST with Oxygen] Oxygen Flow Rate (L/min) [At 0 REST on Room Air] Oxygen Flow Rate (L/min) 2 Oxygen Delivery Method Nasal Cannula Weight: 158 lb 15.958 oz Body Mass Index (BMI) 31.2 Intake & Output: Intake and Output for Last 24 Hours 06/27/23 06/28/23 06/29/23 23:59 23:59 23:59 Intake Total 3245.83 / 3245.83 3216.67 / 3366.67 200 / 200 Output Total 2460 / 2460 300 / 2050 2150 / 2150 Balance 785.83 / 785.83 2916.67 / 1316.67 -1950 / -1950 Lab / Micro Data 06/29/23 06:33 06/29/23 06:33 Labs: Laboratory Results - last 24 hr 06/28/23 05:42: Phosphorus 2.2 L, Magnesium 2.0 Micro: Microbiology 06/26/23 07:49 Urine, Clean Catch Urine Culture - Preliminary Gram negative shahbaz 06/26/23 23:10 Blood Culture (Wb) - Anticubital Right Blood Culture - Preliminary Gram negative shahbaz 06/26/23 06:28 Blood Culture (Wb) - Anticubital Right Blood Culture - Preliminary Gram negative shahbaz Physical Exam Narrative Seen and examined on the day of discharge. Patient shortness of breath has resolved. Oxygen. Pulse ox 95% on room air. No fever Physical exam General: Alert, Oriented x3, Cooperative HEENT: Atraumatic, PERRLA, EOMI, Normocephalic Oral: Oral mucosa moist. No Gingival or Mucosal Lesions/ Ulcerations Neck: Supple, No JVD, Negative Carotid Bruits Chest wall/Lungs: Air entry equal in bilateral lung bases. No crepitation/rhonchi Cardiovascular: Regular rate, Regular Rhythm, Normal S1, Normal S2, No M/G/R Abdomen: Bowel Sounds Present, Soft, Non Tender, Non-Distended : Had ureteric stent. No dysuria. No renal angle tenderness. No suprapubic tenderness. Extremities: No edema, Capillary Refill Less than 3 Seconds Skin: No rashes, No breakdown Musculoskeletal: No Tenderness to Palpation of Joints or Extremities Neurological: Cranial nerves II-XII grossly intact, DTR 2+/4. No acute focal neurological deficit. Psych/Mental Status: Normal Affect, Appropriate. Assessment & Plan Assessment/Plan (1) Urinary tract infection: (2) Left ureteral stone: PLAN: Plan 1. Proteus mirabilis UTI complicated with left ureteral stone: [facility] Blood culture and urine culture shows Proteus mirabilis, more than 100,000 colonies per mL. Proteus fairly pansensitive with resistance to nitrofurantoin. During hospital course patient treated with IV Zosyn. Discharged on ciprofloxacin by urologist Dr. Tracie Santana. 2. Hypoxia exact etiology unclear possible due to atelectasis: IV fluid was discontinued. Incentive spirometry done. Aggressive incentive spirometry and PEP. Hypoxia resolved. 3. Dyslipidemia Continue with pravastatin 3. Iron deficiency anemia /9: H&H 10.7/32%. Moderate anemia ? Continue with her home medications 4. GERD ? Continue PPI 5. Glaucoma ? Continue with her home eyedrops DVT: SCDs Patient wants to go home. Discussed with Dr. Tracie Santana and she agreed for discharge and she discharged the patient. Thank you for consulting hospitalist team. Charges/Coding Visit Charges Inpatient E&M: 92422 Subs Hosp L2
[2023-06-29 07:17] LABS: Absolute Lymphocyte Count 0.92 X10^3/uL (0.83-4.51); Absolute Neutrophil Count 8.4 X10^3/uL (2.0-7.7); Basophil# 0.03 X10^3/uL; Basophil% 0.3 % (0-1); Eosinophil# 0.12 X10^3/uL; Eosinophils% 1.2 % (0-5); Hemoglobin 10.7 g/dL (12.0-15.0); Lymphocyte # 0.92 X10^3/ul (0.83-4.51); Lymphocyte % 9.2 % (19-41); Mean Corp Hgb Conc 33.4 g/dL (32-36); Mean Corpuscular Hgb 31.6 pg (27.0-32.0); Mean Corpuscular Volume 94.4 fL (81-99); Mean Platelet Vol. 10.7 fl (6.2-12.0); Monocyte# 0.43 X10^3/uL; Monocyte% 4.3 % (0-10); NRBC Flagged by Analyzer 0 % (0-5); Neutrophil # 8.42 X10^3/uL (2.7-7.7); Neutrophil % 84.5 % (47-70); Platelet Count 144 K/mm3 (150-450); RBC Distribution Width CV 15.2 % (11.6-14.6); RBC Distribution Width SD 52.7 fl (35.1-43.9); Red Blood Count 3.39 M/mm3 (4.2-5.4)
[2023-06-29 08:01] VITALS: BP 116/70; PULSE 80; RESP 16; TEMP 36.9; O2SAT 93
[2023-06-29] MEDS: Aspirin 81 MG TAB.CHEW 162 MG PO (09:23)
[2023-06-29] MEDS: Enoxaparin 40 MG/0.4 ML Syringe SC (09:24)
[2023-06-29] MEDS: Ferrous Sulfate 325 MG Tablet PO (09:24)
[2023-06-29] MEDS: Pantoprazole Sodium 20 MG Tablet PO (09:25)
[2023-06-29] MEDS: Pravastatin 40 MG Tablet PO (09:25)
[2023-06-29] MEDS: Timolol 0.5% 5ML OPTH.BTL 1 DRP RIGHT EYE (09:26)
[2023-06-29 13:08] LABS: Anion Gap 6 (5-15); BUN 8 mg/dL (7-18); BUN/Creat Ratio 15.4 RATIO (10-20); Calcium,Total 8.1 mg/dL (8.5-10.1); Chloride 105 mmol/L (98-107); Creatinine, Serum 0.52 mg/dL (0.55-1.02); EST Glomerular Filtration Rate 121 mL/min (>60); Est Glom Filt Rate - Afr Amer 146 mL/min (>60); Estimated Creatinine Clearance 48.89 ml/min; Glucose 80 mg/dL (74-106); Potassium 3.3 mmol/L (3.5-5.1); Sodium Level 138 mmol/L (136-145)
--- NOTE | 2023-06-29 13:09 | CHAPLAIN ---
Type of Pastoral Visit _x__ Initial Visit ___ Follow-up Visit ___ On-call Visit ___ General Patient Visit ___ Spiritual Assessment ___ Family Conference ___ Bereavement ___ Rapid Response ___ Code Blue ___ Other (describe below) Pastoral Care Referral From _x__ Patient ___ Family ___ Nurse ___ Physician ___ Economic Adviser ___ Production Designer ___ Other (describe below) Sacrament/Intervention _x__ Active listening ___ Anointing ___ Holiness ___ Bereavement ___ Communion _x__ Sol exploration ___ _x__ Life review _x__ Prayer ___ Reconciliation ___ Sacrament of Sick _x__ Supportive presence ___ Wedding ___ Other (describe below) Pastoral Comments patient and spouse in the room and welcoming of the support and presence of 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
[2023-06-29 13:58] VITALS: O2SAT 90; O2SAT 95
[2023-06-29 14:00] VITALS: BP 129/58; PULSE 80; RESP 16; TEMP 36.8; O2SAT 94
--- NOTE | 2023-06-29 14:04 | CASEMGMT ---
Pt does not qualify for home oxygen.
== END 2023-06-29 14:32 | disposition home or self-care (01) | DRG 660 ==
LOC: ED 09:59 → MS3 10:36
PROVIDERS: Family Medicine; Admitting Provider Urology; Emergency Provider Emergency Medicine; PCP Nurse Practitioner Primary Care; Visit Provider Urology
DX: N13.6 Pyonephrosis (principal); J98.11 Atelectasis; B96.4 Proteus (mirabilis) (morganii) as the cause of diseases classified elsewhere; D50.9 Iron deficiency anemia, unspecified; E78.2 Mixed hyperlipidemia; K21.9 Gastro-esophageal reflux disease without esophagitis; Z79.82 Long term (current) use of aspirin; R09.02 Hypoxemia; H40.9 Unspecified glaucoma
CPT/HCPCS: 36415; 74176; 76000; 80048; 81001; 83735; 84100; 85025; 87040; 87077; 87086; 87088; 87186; 93005; 94668; 99284; J7030; J7040; J7050; J7120; A4216; C2625; J0744; J1940; J2405

== ENCOUNTER 2023-07-22 11:36 | Day surgery (SDC) | payer MEDICARE, SELFPAY ==
[2023-07-22] VITALS (8 sets, daily range): BP systolic 128–149; BP diastolic 64–79; PULSE 66–85; RESP 14–16; TEMP 36.1–36.6; O2SAT 92–98; BMI 29.7
[2023-07-22] MEDS: Lactated Ringers 1,000 ML 15 ML IV (12:25)
[2023-07-22] MEDS: Cefazolin 2 GM in 0.9% Normal Saline (100mL Bag) 100 ML IV (14:01)
--- NOTE | 2023-07-22 14:22 | DCINST_ITS ---
Discharge Instructions Diet Discharge Diet: No restrictions Activity Discharge Activity: Return to Normal Activity Dressing / Incision Call your doctor if you observe: Fever of 101 or Higher, Inability to urinate and Inability to have a bowel movement Follow Up Care Please Follow Up With: Tracie Santana MD When: In 2 to 3 weeks with a KUB and possible stent removal. Test Results: Test results from this visit will be discussed in further detail at your follow- up appointment, if applicable. Discharge Plan Admission Attending Provider: Tracie Santana Primary Care Provider: Lyla You NP Discharge Orders/Prescriptions Prescriptions: New oxycodone-acetaminophen [Percocet] 5-325 mg tablet 1 tab PO Q8H PRN (Reason: pain) 3 Days Qty: 10 0RF cephalexin [cephalexin] 500 mg capsule 500 mg PO Q12 3 Days Qty: 6 0RF Continued cholecalciferol (vitamin D3) 125 mcg (5,000 unit) capsule 125 mcg PO DAILY pravastatin 40 mg tablet 40 mg PO DAILY Qty: 90 3RF ferrous sulfate 325 mg (65 mg iron) tablet,delayed release (DR/EC) 325 mg PO DAILY omeprazole 20 mg capsule,delayed release(DR/EC) 20 mg PO QODAY latanoprost 1 DROP bottle 1 drp EACH EYE QHS aspirin 81 MG tablet,chewable 162 mg PO DAILY@0800 timolol 0.5 % drops 1 drp RIGHT EYE DAILY esomeprazole magnesium [Nexium] 20 mg capsule,delayed release(DR/EC) 20 mg PO QODAY Calcium for Women 500-100-40 mg-unit-mcg tablet,chewable 1 tab PO DAILY Referrals / Follow Up: Lyla You NP, [employer]PRENTICE-[facility] [Primary Care Provider] - Disposition Disposition (needs filled in before D/C Order can be placed): Home, Self Care
--- NOTE | 2023-07-22 14:25 | OP.PCM_ITS ---
Report of Operation Date of Procedure: 07/22/23 Pre-Operative Diagnosis: Left renal stone Post-Operative Diagnosis: Same Surgery/Procedure Performed:: Left renal extracorporal shockwave lithotripsy Surgeon: Tracie Santana Type of Anesthesia: General Specimen's removed: None Description of Procedure: The patient is an 83-year-old female who presents for shockwave lithotripsy of a left renal stone. It was in the proximal left ureter and was pushed into the renal pelvis at the time of her cystoscopy and stent insertion. Informed consent has been obtained. She was taken to the operating room and placed on the lithotripsy table. Anesthesia monitored the head, neck, airway, IV access and vital signs throughout the case. Once anesthesia was appropriately administ ered, the patient was aligned with the lithotripter. The stone was easily visualized. 3000 shocks were applied and the stone appeared to be well fragmented. The fragments shifted down into the proximal ureter and 500 extra shocks were given in this location. At this time the patient was awakened and taken to the recovery room in good condition. There were no complications during this procedure. Some of the fragments Grafts/Implants Used: None Complications None Admit VTE Documentation VTE Present on Admission: Yes VTE Mechan Device Prophylaxis: SCD's VTE Pharm Prophylaxis ordered?: No Reason prophylaxis not ordered:: Treatment Not Indicated
== END 2023-07-22 16:21 | disposition home or self-care (01) ==
LOC: SDC 11:41 → AC 11:41
PROVIDERS: PCP Nurse Practitioner Primary Care; Referring Provider Urology; Visit Provider Urology
PROC: (CPT 50590; principal; 2023-07-22 13:20)
DX: N20.0 Calculus of kidney (principal); Z79.01 Long term (current) use of anticoagulants; K21.9 Gastro-esophageal reflux disease without esophagitis; Z79.899 Other long term (current) drug therapy; E78.2 Mixed hyperlipidemia; N39.3 Stress incontinence (female) (male); Z79.82 Long term (current) use of aspirin
CPT/HCPCS: 50590; 00873; J7120; J2405

== ENCOUNTER → 2023-08-03 | Outpatient (CLI) | payer MEDICARE, SELFPAY ==
--- NOTE | 2023-08-03 10:02 | RAD_ITS ---
STUDY: X-RAY - ABDOMEN/PELVIS REASON FOR EXAM: Female, 83 years old. KUB- KIDNEY STONES TECHNIQUE: KUB COMPARISON: CT of the abdomen and pelvis June 26, 2023 FINDINGS: Normal visualized lung bases. There is an unremarkable bowel gas pattern. There is no demonstrated free abdominal air. The visualized liver, spleen and kidneys are grossly normal in size and morphology. Ureterovesical stent is noted on the left. Lumbar spine demonstrates degenerative change incidental finding of osteitis pubis. Previously noted mid left ureteral calculus not visualized at this time There are multiple bilateral pelvic phleboliths. RAD/Abdomen Single View IMPRESSION: No definitive evidence for renal or ureteral stones status post ureterovesical stent placement. Electronically Signed: Enzo Jiménez MD at 22:52 EDT ,
== END | disposition home or self-care (01) ==
LOC: MTRAD 10:02
PROVIDERS: PCP Nurse Practitioner Primary Care; Referring Provider Urology; Visit Provider Urology
DX: N20.0 Calculus of kidney (principal)
CPT/HCPCS: 74018